=== PATIENT | female | born 1940 | race Caucasian/White ===

== ENCOUNTER → 2023-07-22 10:25 | Outpatient (REF) | payer MEDICARE, SELFPAY ==
[2023-07-22 11:41] LABS: HDL Cholesterol 43 mg/dl; LDL Cholesterol, Calculated 101 mg/dl; Total Cholesterol 183 mg/dl (50-199); Triglyceride 197 mg/dl (10-149); Very Low Density Lipoprotein 39 mg/dl (0-30)
[2023-07-22 12:06] LABS: Vitamin B12 813 pg/ml (239-931)
== END ==
LOC: OLABN 10:25
PROVIDERS: ATTENDING PHYSICIAN Student in an Organized Health Care Education/Training Program
DX: E78.5 Hyperlipidemia, unspecified (principal); I10 Essential (primary) hypertension
CPT/HCPCS: 36415; 80061; 82607

== ENCOUNTER → 2023-08-14 10:31 | Outpatient (REF) | payer MEDICARE, SELFPAY ==
[2023-08-14 11:05] LABS: Hematocrit 30.2 % (37.0-47.0); Hemoglobin 9.5 g/dL (12.0-16.0); Mean Corp Hgb Conc. 31.5 g/dL (33.0-37.0); Mean Corpuscular Hgb 33.9 pg (27.0-31.0); Mean Corpuscular Volume 107.9 fL (81.0-99.0); Mean Platelet Volume 9.4 fL (7.4-10.4); Platelet Count 200 10^3/uL (130-400); White Blood Cell Count 6.7 10^3/uL (4.8-10.8)
== END ==
LOC: OLABN 10:31
PROVIDERS: ATTENDING PHYSICIAN Student in an Organized Health Care Education/Training Program
DX: I10 Essential (primary) hypertension (principal)
CPT/HCPCS: 36415; 85027

== ENCOUNTER → 2023-10-14 11:33 | Outpatient (REF) | payer MEDICARE, SELFPAY | LOC: WOUND 11:33 | PROVIDERS: ATTENDING PHYSICIAN Surgery; FAMILY PHYSICIAN Physician Assistant Medical | DX: I87.311 Chronic venous hypertension (idiopathic) with ulcer of right lower extremity (principal); L97.812 Non-pressure chronic ulcer of other part of right lower leg with fat layer exposed; L98.9 Disorder of the skin and subcutaneous tissue, unspecified; I87.2 Venous insufficiency (chronic) (peripheral); I73.9 Peripheral vascular disease, unspecified; I89.0 Lymphedema, not elsewhere classified; G47.33 Obstructive sleep apnea (adult) (pediatric); E66.01 Morbid (severe) obesity due to excess calories; K21.00 Gastro-esophageal reflux disease with esophagitis, without bleeding; J44.9 Chronic obstructive pulmonary disease, unspecified | CPT/HCPCS: 88305; 11104; 11105; 99204 ==

== ENCOUNTER → 2023-10-30 11:09 | Outpatient (REF) | payer MEDICARE, SELFPAY | LOC: WOUND 11:09 | PROVIDERS: ATTENDING PHYSICIAN Surgery; FAMILY PHYSICIAN Physician Assistant Medical | DX: I87.311 Chronic venous hypertension (idiopathic) with ulcer of right lower extremity (principal); L97.812 Non-pressure chronic ulcer of other part of right lower leg with fat layer exposed; C44.702 Unspecified malignant neoplasm of skin of right lower limb, including hip; L98.9 Disorder of the skin and subcutaneous tissue, unspecified; I87.2 Venous insufficiency (chronic) (peripheral); I73.9 Peripheral vascular disease, unspecified; I89.0 Lymphedema, not elsewhere classified; G47.33 Obstructive sleep apnea (adult) (pediatric); E66.01 Morbid (severe) obesity due to excess calories; J44.9 Chronic obstructive pulmonary disease, unspecified | CPT/HCPCS: 99213 ==

== ENCOUNTER → 2024-01-08 09:54 | Outpatient (REF) | payer MEDICARE, SELFPAY ==
[2024-01-08 11:26] LABS: % Basophils 0.6 % (0-2); % Eosinophils 2.9 % (0-6); % Lymphocytes 14.9 % (20.5-51.1); % Monocytes 13.8 % (1.7-9.3); % Neutrophils 66.8 % (42.2-75.2); Absolute Basophils 0.1 10^3/uL (0-0.2); Absolute Eosinophils 0.2 10^3/uL (0-0.7); Absolute Immature Granulocytes 0.1 10^3/uL (0-0.05); Absolute Lymphocytes 1.3 10^3/uL (1.2-3.4); Absolute Monocytes 1.2 10^3/uL (0.1-0.6); Absolute Neutrophils 5.6 10^3/uL (1.4-6.5); Hematocrit 30.2 % (37.0-47.0); Hemoglobin 9.2 g/dL (12.0-16.0); Mean Corp Hgb Conc. 30.5 g/dL (33.0-37.0); Mean Corpuscular Hgb 31.5 pg (27.0-31.0); Mean Corpuscular Volume 103.4 fL (81.0-99.0); Mean Platelet Volume 9.3 fL (7.4-10.4); Nucleated Red Blood Cells % 0 %; Platelet Count 255 10^3/uL (130-400); Red Blood Cell Count 2.92 10^6/uL (4.20-5.40); White Blood Cell Count 8.4 10^3/uL (4.8-10.8)
[2024-01-08 11:53] LABS: ALT (SGPT) 12 U/L (0-35); AST (SGOT) 21 U/L (14-36); Albumin 3.8 g/dl (3.5-5.0); Alkaline Phosphatase 121 U/L (38-126); Blood Urea Nitrogen 26 mg/dl (7-17); Calcium 9.2 mg/dl (8.4-10.2); Carbon Dioxide 37 mmol/L (22-30); Chloride 96 mmol/L (98-107); Glucose 125 mg/dl (70-99); Sodium 141 mmol/L (135-145); Total Bilirubin 0.7 mg/dl (0.2-1.3); Total Protein 6.9 g/dl (6.3-8.2); eGFR > 60.00
== END ==
LOC: OLABN 09:54
PROVIDERS: ATTENDING PHYSICIAN Student in an Organized Health Care Education/Training Program
DX: J44.9 Chronic obstructive pulmonary disease, unspecified (principal)
CPT/HCPCS: 80053; 85025

== ENCOUNTER 2024-01-13 11:37 | Inpatient (IN) | payer MEDICARE, SELFPAY ==
[2024-01-13] VITALS (15 sets, daily range): BP systolic 75–171; BP diastolic 62–111; PULSE 2–117
[2024-01-13 09:38] LABS: % Basophils 0.6 % (0-2); % Immature Granulocytes 1.9 % (0-0.5); % Lymphocytes 8.6 % (20.5-51.1); % Monocytes 10.1 % (1.7-9.3); % Neutrophils 76.8 % (42.2-75.2); Absolute Basophils 0.1 10^3/uL (0-0.2); Absolute Eosinophils 0.3 10^3/uL (0-0.7); Absolute Immature Granulocytes 0.2 10^3/uL (0-0.05); Absolute Lymphocytes 1.1 10^3/uL (1.2-3.4); Absolute Monocytes 1.3 10^3/uL (0.1-0.6); Absolute Neutrophils 9.8 10^3/uL (1.4-6.5); Hematocrit 31.9 % (37.0-47.0); Mean Corp Hgb Conc. 31.3 g/dL (33.0-37.0); Mean Corpuscular Hgb 31.7 pg (27.0-31.0); Mean Corpuscular Volume 101.3 fL (81.0-99.0); Nucleated Red Blood Cells % 0.2 %; Platelet Count 296 10^3/uL (130-400); Red Blood Cell Count 3.15 10^6/uL (4.20-5.40); Red Cell Dist. Width 16.9 % (11.5-14.5); White Blood Cell Count 12.8 10^3/uL (4.8-10.8)
--- NOTE | 2024-01-13 09:42 | ED.GENMED ---
History of Present Illness
General
Chief Complaint: Breathing Problem
Source: patient and records
Exam Limitations: clinical condition and other (Hard of hearing)
Time Seen by Provider: 01/13/24 09:13
Nursing documentation reviewed up to this point in time: agreed with
History of Present Illness
History of Present Illness:
83-year-old female from [facility] presents with shortness of breath decreased pulse ox chronically maintained on 3 to 4 L, staff found her in respiratory distress with a pulse ox in the high 70s
Put on 6 L, admits to shortness of breath she has some wheezing no fevers no chest pain history of COPD CHF pulmonary hypertension obesity
Past History
Past History
ED Past Medical History: CHF, COPD, HTN, Hypercholesterolemia and Hypothyroidism; Negative NIDDM
ED Past Surgical History: Gynecological (RIA/BSO in June 2008 for uterine CA )
Social History
Tobacco: Former smoker
Alcohol: None
Drug: None
Personal:
Living: long-term
Employment: Other
Review of Systems
Review of Systems
All Other Systems: Not applicable
Constitutional: Denies fever or fatigue
Respiratory: Reports trouble breathing; Denies cough or hemoptysis
Cardiac: Reports no symptoms
ABD/GI: Reports no symptoms
Musculoskeletal: Reports edema
Neurological: Reports no symptoms
Endocrine: Reports no symptoms
Phy Exam
Physical Exam
Physical Exam:
Physical Exam
General: 83 female short statured, mild respiratory distress hard of hearing
Neck: No jaundice
Heart: Rapid and irregular
Lungs: Wheezing
Abdomen: Obese, good
Neuro: alert and oriented. no focal neurological deficits
Skin: no rash
Psychiatric: cooperative
Extremities: Lower extremities in compression wraps
Scores
Heart Failure Risk
Heart Failure Risk Score: Yes
History of Stroke or TIA: No
History of intubation for respiratory distress: No
Heart rate on ED arrival >/= 110: Yes
SaO2 <90% on arrival on room air: Yes
HR >/=110 during 3min walk test (or too ill to perform test): Yes
ECG has acute ischemic changes: Yes
Urea >/=12mmol/L (BUN 33.6mg/dL): No
Serum CO2>/=35mmol/L: No
Troponin I or T elevated to MN Level (0.4mg/dL): No
NT-proBNP >/=5,000ng/L (5,000pg/ml): No
HF Risk Score: 5
Admission Status: VERY HIGH RISK 39.8% Consider admission to hospital
Course
Orders/Labs/Results
Orders:
Orders
01/13/24 09:09
EKG [Electrocardiogram (*1)] Urgent
Reason for Study: Shortness of Breath
EKG- Treatment ONCE
01/13/24 09:19
Cardiac Monitoring- Treatment ONCE
EKG- Treatment ONCE
IV Insert/Care/Rem.- Treatment PRN
Complete Blood Count/With Diff Urgent
CR Chest Portable - 1 View Urgent
Comment:
Reason For Exam: sob
Reason Study Needs to be Portable: Patient Unstable
01/13/24 09:20
Diltiazem HCl [Cardizem] 10 mg IV NOW STA
01/13/24 09:30
Diltiazem 125 mg/125 ml Nss [Cardizem] 125 mg in 125 ml IV PER PROTOCOL
Initial dose in mg/hr, then titrate:: 5
Titrate to keep:: Heart rate 80-100 bpm
Titrate by mg/hr:: 5 mg/hr
Frequency of titrations (minutes):: 15
Maximum dose in mg/hr:: 15
01/13/24 09:50
Comprehensive Metabolic Panel Urgent
NT-proBNP Urgent
Troponin I Urgent
01/13/24 09:55
Arterial Blood Gas Urgent
%Oxygen/Room Air: crb
01/13/24 10:16
Bipap [RESP] Urgent
Patient to use own unit?: No
Inspiratory Pressure (cm H2O): 12
Expiratory Pressure (cm H2O): 5
01/13/24 10:17
Ipratropium/Albuterol Sulfate [Duoneb] 3 ml INH R NOW STA
01/13/24 10:33
Furosemide [Lasix] 60 mg IV NOW STA
01/13/24 11:10
Admit/Transfer Patient As Directed
Co-Sign Provider:
Level of Care: Inpatient admission
Assign to:: IMU- Intermediate Care
Physician / Group: Brittany
Diagnosis: acute on chronic HFpEF
Reason for Hospitalization: acute on chronic HFpEF
Expected length of stay greater than two midnights?: Yes
ELOS- Estimated Length of Stay in days: 6
I certify the patient meets the requirements for IP care: Yes
01/13/24 11:11
PRN Pain Medication Management As Directed
May give lesser potent ordered pain med per pt: Yes
preference::
Protocol:: Medication orders for pain may be administered in a
manner that supports deferring to patient preference
when the pt is:
- Requesting an ordered lesser potent pain medication.
Least to most potent pain medications are defined
as: acetaminophen < NSAID < tramadol < opioids
(morphine, oxycodone, hydromorphone).
- Requesting a lesser dose of the same medication IF
ORDERED.
- Requesting a less intrusive route of administration
if both routes are prescribed by the provider (PO <
IV).
01/13/24 11:19
Code Status As Directed
Resuscitation Status: Do not resuscitate
Reached after discussion with pt or family/Healthcare POA: Yes
DNR Bracelet Application ONCE
01/13/24 18:00
Piperacillin/Tazo 3.375 Gram [Zosyn] 3.375 gram in 50 ml IV Q6H
Abnormal Lab Results
01/13/24 01/13/24 01/13/24
09:19 09:50 09:55
WBC 12.8 H 10^3/uL
(4.8-10.8)
RBC 3.15 L 10^6/uL
(4.20-5.40)
Hgb 10.0 L g/dL
(12.0-16.0)
Hct 31.9 L %
(37.0-47.0)
MCV 101.3 H fL
(81.0-99.0)
MCH 31.7 H pg
(27.0-31.0)
MCHC 31.3 L g/dL
(33.0-37.0)
RDW 16.9 H %
(11.5-14.5)
Abs Immat Gran (auto) 0.2 H 10^3/uL
(0-0.05)
Absolute Neuts (auto) 9.8 H 10^3/uL
(1.4-6.5)
Absolute Lymphs (auto) 1.1 L 10^3/uL
(1.2-3.4)
Absolute Monos (auto) 1.3 H 10^3/uL
(0.1-0.6)
Immature Gran % 1.9 H %
(0-0.5)
Neutrophils % 76.8 H %
(42.2-75.2)
Lymphocytes % 8.6 L %
(20.5-51.1)
Monocytes % 10.1 H %
(1.7-9.3)
pCO2 78 H* mmHg
(32-35)
pO2 59 L* mmHg
(83-108)
HCO3 43.1 H* mmol/L
(21-28)
ABG O2 Sat (Measured) 91.2 L %
(94-98)
Chloride 95 L mmol/L
(98-107)
Carbon Dioxide 38 H mmol/L
(22-30)
BUN 26 H mg/dl
(7-17)
Glucose 178 H mg/dl
(70-99)
Alkaline Phosphatase 140 H U/L
(38-126)
01/13/24 09:19
01/13/24 09:50
Vital Signs
Initial and Last Documented VS:
Initial Vital Signs
Temp Pulse Resp BP Pulse Ox
98.2 F 105 25 161/83 70
01/13/24 09:07 01/13/24 09:07 01/13/24 09:07 01/13/24 09:07 01/13/24 09:07
Last Documented Vital Signs
Temp Pulse Resp BP Pulse Ox
98.2 F 100 24 169/68 96
01/13/24 09:07 01/13/24 11:45 01/13/24 11:45 01/13/24 11:23 01/13/24 11:45
MDM/Problems Addressed
Differential Diagnosis Includes:
CHF pneumonia hypercarbia COPD exacerbation, doubt PE as she is anticoagulated
MDM/Problems Addressed:
Shortness of breath low pulse ox
Chronic conditions affecting care: Arrhythmia and COPD
Acute Exacerbation and/or Progression of Chronic Illness: Arrhythmia and COPD
*Radiology
Radiology exam reviewed: preliminary read by ED provider
*Pulse Oximetry
Patient hypoxic: no
*EKG
Interpreted by ED Provider?: Yes
Interpretation: abnormal
Comparison EKG: no comparison EKG present
Heart Rate: 112
Rate: tachycardiac
Rhythm: a-fib
Ischemia: non-specific ST changes
*Gas Fitter Interpretation
Rate: tachycardiac
Interpretation: abnormal
Heart Rate: 120
Rhythm: a-fib
*Critical Care Note
Total Time (30-74mins, 75-104mins- exclusive of procedures): 30
Update Note
Update Note:
Update ABG noted chest x-ray pending, prior ABGs noted will place on BiPAP, heart rate improved without treatment will hold Cardizem try DuoNeb
Update 12:30 PM patient appears comfortable on BiPAP easily arousable
ED Attending Note
-
Portions of this chart may have been created with voice recognition software.� Occasional wrong word or��sound alike� substitutions may have occurred due to the inherent limitations of voice recognition software.
Discharge Plan
Departure
Patient Disposition: Admit
Date of Disposition: 01/13/24
Time of Disposition: 10:38
Admit to: Telemetry
Presentation/result/management discussed w/ accepting MD/DO: Hospitalist
Patient with high blood pressure during this ER visit?: No
Condition: Fair
Discharge Problem:
Hypertensive heart disease with heart failure, Morbid (severe) obesity with alveolar hypoventilation, ARIANA on CPAP, Chronic diastolic (congestive) heart failure, HLD (hyperlipidemia), Chronic respiratory failure with hypoxia, Acute and chronic
respiratory failure with hypoxia, COPD exacerbation, Obesity hypoventilation syndrome, Hypothyroid, Lymphedema, Sleep apnea, Chronic respiratory failure with hypercapnia, Morbid obesity with BMI of 45.0-49.9, adult
Interventions
Interventions:
*Risk Screen - Suicide Last Done: 01/13/24 09:07
*General Assessment Last Done: 01/13/24 09:07
*Neglect/Abuse Screening Last Done: 01/13/24 09:07
*ED COVID-19 Vaccine History Last Done: 01/13/24 09:30
ED- Cardiac Assessment Last Done: 01/13/24 09:30
ED- Pulmonary Assessment Last Done: 01/13/24 09:30
[2024-01-13 10:04] LABS: B.E. 14.8 mmol/L; O2 Saturation % 91.2 % (94-98); pH 7.35 (7.35-7.45)
[2024-01-13 10:09] LABS: HCO3 43.1 mmol/L (21-28); PCO2 78 mmHg (32-35); PO2 59 mmHg (83-108)
[2024-01-13 10:13] LABS: ALT (SGPT) 13 U/L (0-35); AST (SGOT) 21 U/L (14-36); Alkaline Phosphatase 140 U/L (38-126); Blood Urea Nitrogen 26 mg/dl (7-17); Calcium 9.4 mg/dl (8.4-10.2); Carbon Dioxide 38 mmol/L (22-30); Chloride 95 mmol/L (98-107); Estimated Creatinine Clearance 58 ml/min; Glucose 178 mg/dl (70-99); Potassium 4.5 mmol/L (3.5-5.1); Sodium 141 mmol/L (135-145); Total Bilirubin 0.8 mg/dl (0.2-1.3); Total Protein 7.1 g/dl (6.3-8.2); eGFR > 60.00
[2024-01-13 10:25] LABS: NT-proBNP 1030 pg/ml; Troponin I < 0.012 ng/ml
--- NOTE | 2024-01-13 10:37 | HPS.HSE ---
Family Physician
-
Family Physician: Oleksandr Case DO
Chief Complaint
-
SOB
History of Present Illness
83 y/o F with PMHx:
HFpEF
PSVT
Endometrial cancer
COPD
Essential hypertension
Hyperlipidemia
Hypothyroidism
ARIANA
Interstitial lung disease
Morbid obesity due to excess calories
Chronic macrocytic anemia
who p/w CC SOB. History from the patient is limited due to her being on BiPAP, acuity. History is obtained from the at bedside as well as discussion with Dr. Stearns. The patient has been 'huffing and puffing more' over the last 2 to 3
days. The patient noticed that this was worsening last night when he visited her [facility]. He reports she has had some cough productive of yellow sputum but that she always has cough. No other new complaints. The patient reports that her
shortness of breath is improved on BiPAP. Currently denies chest pain.
Medical History
Past Medical History
Past Medical History: Reports Other (as per HPI)
Past Surgical History: Reports Other (N/A)
Social History
Tobacco: Former Smoker
Alcohol: None
Drug: None
Family History
Family History: Not pertinent
Allergies / Home Medications
Allergies reflects when Allergies were last updated in [employer]
Home Medications with original date entered in [employer]
Allergy/Medication List:
Allergies
Allergy/AdvReac Type Severity Reaction Status Date / Time
AKIRA Inhibitors Allergy Unknown Verified 01/13/24 09:06
nickel [Nickel] Allergy Rash Verified 01/13/24 09:06
Home Medications
acetaminophen 325 mg tablet 650 mg PO Q4HPRN PRN mild pain 12/05/20
fluticasone propionate 50 mcg/actuation nasal spray,suspension 1 spray intranasal BID Allergies 12/05/20
mirabegron 25 mg tablet,extended release 24 hr (Myrbetriq) 50 mg PO DAILY Urinary issue 12/05/20
clonidine HCl 0.1 mg tablet 0.1 mg PO BID Blood pressure 12/14/20
levothyroxine 112 mcg tablet 112 mcg PO DAILY AT 0700 Thyroid 02/15/22
candesartan 4 mg tablet 4 mg PO DAILY Blood pressure 30 days #30 tabs 02/20/22
atorvastatin 40 mg tablet (Lipitor) 40 mg PO QPM High cholesterol 04/12/22
bisacodyl 10 mg rectal suppository (Dulcolax (bisacodyl)) 10 mg OH [id number] PRN IF NO BM AND MOM IS INEFFECTIVE 04/12/22
ferrous gluconate 324 mg (38 mg iron) tablet 324 mg PO MOWEFR IRON DEFICIENCY ANEMIA 04/12/22
eltrombopag olamine 75 mg tablet (Promacta) 75 mg PO Q48H THROMBOCYTOPENIA 04/24/22
furosemide 40 mg tablet 60 mg PO BID@0800,1600 Heart Failure 04/24/22
ipratropium 0.5 mg-albuterol 3 mg (2.5 mg base)/3 mL nebulization soln 3 ml inhalation R Q6HPRN PRN sob 04/24/22
ipratropium 0.5 mg-albuterol 3 mg (2.5 mg base)/3 mL nebulization soln 3 ml inhalation R QID SHORTNESS OF BREATH 04/24/22
acetaminophen 500 mg tablet 1,000 mg PO BID Pain 09/01/22
azithromycin 250 mg tablet 250 mg PO MOWEFR Infection 09/01/22
benzonatate 100 mg capsule 200 mg (2 x 100 mg) PO TIDPRN PRN cough #7 caps 09/06/22
ammonium lactate 12 % topical cream 1 applic topical BID xerosis cutis 05/20/23
docusate sodium 100 mg capsule 200 mg PO DAILY Constipation 05/20/23
hydralazine 10 mg tablet 5 mg PO TID Blood Pressure 05/20/23
hydrocortisone 2.5 % topical cream with perineal applicator (Procto-Med HC) 1 applic OH QIDPRN PRN hemorrhoids 05/20/23
polyethylene glycol 3350 17 gram oral powder packet 17 g PO Q72H Constipation 05/20/23
apixaban 5 mg tablet (Eliquis) 5 mg PO BID 30 days #60 tabs 05/26/23
acetaminophen 325 mg tablet (Tylenol) 650 mg PO DAILYPRN PRN fever 01/13/24
ascorbic acid (vitamin C) 500 mg tablet (Vitamin C) 500 mg PO MOWEFR 01/13/24
benzocaine 6 mg-menthol 10 mg lozenges 1 mila mucous membrane Q4HPRN PRN sore throat 01/13/24
diltiazem HCl 120 mg capsule,extended release 24 hr 120 mg PO DAILY Blood pressure 01/13/24
fluticasone furoate 100 mcg/actuation blister powder for inhalation (Arnuity Ellipta) 1 inh inhalation R DAILY 01/13/24
pantoprazole 20 mg tablet,delayed release (Protonix) 20 mg PO DAILY 01/13/24
Review of Systems
-
Unable to obtain full review of systems at this time due to: Acuity
History Source: Family
Physical Exam
Vital Signs
Vital Signs
Temp Pulse Resp BP Pulse Ox
98.2 F 104 29 161/83 99
01/13/24 09:07 01/13/24 09:30 01/13/24 09:30 01/13/24 09:11 01/13/24 09:32
Physical Exam
General: Other (.)
Laboratory Results
-
01/13/24 09:19
01/13/24 09:50
Laboratory Results
pH 7.35 (7.35-7.45) 01/13/24 09:55
pCO2 78 mmHg (32-35) H* 01/13/24 09:55
pO2 59 mmHg (83-108) L* 01/13/24 09:55
HCO3 43.1 mmol/L (21-28) H* 01/13/24 09:55
Total Bilirubin 0.8 mg/dl (0.2-1.3) 01/13/24 09:50
AST 21 U/L (14-36) 01/13/24 09:50
ALT 13 U/L (0-35) 01/13/24 09:50
Alkaline Phosphatase 140 U/L (38-126) H 01/13/24 09:50
Troponin I < 0.012 ng/ml 01/13/24 09:50
Impression/Plan
-
Gen: NAD, Awake and alert
Eyes: EOMI, PERRLA, no scleral icterus.
Neck: supple.
CV: irreg/irreg, +S1/S2, no m/r/g.
Resp: CTAB anteriorly, no rales, wheezes, or rhonchi.
Abd: +BS, soft, NT, ND
Skin: Compression stockings on both lower extremities. 3+ bilateral lower extremity dependent edema.
Neuro: CN 2-12 intact, non-focal.
Psych: Normal mood and affect.
Echo 05/21/23: Study was discontinued as patient refused to let technologist continue.
Normal left ventricular chamber size with concentric remodeling and
hyperdynamic left ventricular systolic function. No obvious wall motion
abnormalities. Left ventricular ejection fraction is 70-75% by visual
estimate. Diastolic function indeterminate.
Normal right ventricular size and function.
Mild left atrial dilation.
Moderate right atrial dilation.
Dense posterior mitral annular calcification.
Trileaflet, sclerotic aortic valve with calcification of the base of the right
coronary leaflet but adequate aortic leaflet excursion without stenosis.
Trivial pericardial effusion.
The IVC is not visualized.
RV/RA pressure gradient is 41 mmHg, implying at least mild pulmonary
hypertension.
CXR (official read pending, read by me): B/L pulm edema
ECG (read by me): Afib with RVR @ 122, nl axis, no acute ST/TW changes
Acute hypoxemic and hypercapnic respiratory failure due to acute on chronic HFpEF:
-Chest x-ray with pulmonary edema, proBNP 1030 in the setting of pulmonary restriction due to morbid obesity due to excess calories and underlying COPD (which does not appear to be in acute exacerbation)
-Lasix 60mg IV given in the ER, cont with 80mg IV BID
-cont BIPAP 15/5, currently with 10L O2. Wean for pulse ox 91%
-c/s pulm/cards
Other problems:
Atrial fibrillation with RVR: At the time of my exam the patient's rate had improved to the 70s. Cont Eliquis
PSVT
h/o Endometrial cancer
COPD: cont Duonebs/Azithro/Arnuity Ellipta
Essential hypertension: cont candesartan/clonidine/Cardizem
Hyperlipidemia: cont statin
Hypothyroidism: cont Levoxyl
ARIANA
Interstitial lung disease
Morbid obesity due to excess calories
Chronic macrocytic anemia
DNR/I - confirmed with the pt's in the ER
Eliquis
Due to the patient's advanced age and multiple, severe, active comorbidities, this patient would benefit from comfort care/hospice.
[2024-01-13] MEDS: LASIX 60 MG IV (10:45)
[2024-01-13] MEDS: DUONEB 3 ML INH ×3 (10:45→20:06)
--- NOTE | 2024-01-13 11:48 | PHA.VAN.IN ---
Assessment
- Assessment
Renal Function: Appears similar to baseline
Concomitant Antimicrobials: piperacillin/tazobactam
AUC Dosing Plan
- Dosing Variables
Dosing Weight (kg): 127
Dosing CrCl (ml/min): 58
Vd coefficient (L/kg): 0.5
- Empiric Dosing
Initial / Loading Dose: Vanc 2000mg - administration pending
Maintenance Regimen: Vanc 1500mg Q24H starting 01/13 600
Estimated AUC (mcg*h/mL): 467
Estimated Peak (mcg*h/mL): 33
Estimated Trough (mcg/ml): 10.1
Estimated Half Life (H): 13.2
- Monitoring
No levels ordered at this time: consider levels in next few days
MRSA Screen: Ordered per protocol
Pharmacokinetics Vancomycin I
- -
Patient Age: 83
Patient Sex: Female
Vancomycin Day #: 1
Indication: Pulmonary/Respiratory
Requesting Provider: Dr. Soto
Pertinent Antimicrobial Allergies:
no pertinent antibiotic allergies
Height / Weight:
Height 5 ft 2 in
Actual Weight 127.1 kg
Pertinent Past Medical History: BMI ~51
- Vital Signs / Lab Results
Temp Pulse Resp BP Pulse Ox
98.2 F 107 24 171/83 94
01/13/24 09:07 01/13/24 11:15 01/13/24 11:15 01/13/24 10:45 01/13/24 11:15
Lab Results - Hematology
01/13/24
09:19
WBC 12.8 H
Lab Results - Chemistry
01/13/24 01/13/24
09:19 09:50
BUN Cancelled 26 H
Creatinine Cancelled 0.9
Estimated Creat Clear Cancelled 58
Albumin Cancelled 4.0
[2024-01-13] MEDS: ZOSYN 100 IV (11:59)
[2024-01-13] MEDS: FLUSH (NSS) 1 FLUSH IV (12:00)
[2024-01-13] MEDS: VANCOCIN 540 MG IV (13:56)
--- NOTE | 2024-01-13 15:16 | PTCARENOTE ---
Patient arrived by stretcher from ED. On bipap, tachypneic. AAOx3, drowsy but easily arousable. Very [place]. VSS. Afib on monitor. Respiratory at bedside. Chronic rodriguez draining clear/yellow urine. Call xie in hand, updated patient to surroundings.
Unable to complete admission history at this time due to bipap and tachypnea. Closely monitoring.
[2024-01-13] MEDS: LASIX 80 MG IV (17:08)
[2024-01-13] MEDS: APRESOLINE PO (17:14)
[2024-01-13] MEDS: LIPITOR PO (18:03)
[2024-01-13] MEDS: ZOSYN 50 IV ×2 (18:20→23:57)
[2024-01-13] MEDS: DESENEX/MITRAZOL/ZEASORB 1 APPLIC TOPICAL (18:21)
[2024-01-13] MEDS: FLOVENT 44 MCG INHALER 2 PUFF INH (20:06)
[2024-01-13] MEDS: TYLENOL 1000 MG PO (20:09)
[2024-01-13] MEDS: CATAPRES 0.1 MG PO (20:09)
[2024-01-13] MEDS: ELIQUIS 5 MG PO (20:09)
[2024-01-13] MEDS: LAC HYDRIN, AM LACTIN LOTION 1 APPLIC TOPICAL (20:13)
--- NOTE | 2024-01-13 20:25 | PTCARENOTE ---
Received pt at shift change, at the bedside. AAOx3. Afib on the monitor at a controlled rate. Pt on BiPAP, SpO2 92%. Requested RT to check pt's BiPAP mask for air leak, responded beside, RT assisted RN to remove pt's BiPAP for med
administration. Upon replacing pt's BiPAP mask, SpO2 97%. Pt has a chronic rodriguez in place draining yellow urine. Remainder of assessment as documented. Pt requested BiPAP mask be removed, RN and RT provided education to pt on the importance of BiPAP
in her current condition. Pt's at the bedside reports pt is suppose to wear CPAP HS at [facility], but pt is rarely, if ever, complaint with her machine. Pt and updated on POC for the evening. Pt oriented to call anne-marie, resting
comfortably at this time.
[2024-01-13] MEDS: APRESOLINE 5 MG PO (22:21)
[2024-01-14] VITALS (20 sets, daily range): BP systolic 141–194; BP diastolic 74–151; PULSE 2–98; BMI 48.8
--- NOTE | 2024-01-14 05:44 | PTCARENOTE ---
Pt's BiPAP alarming low pressure volumes, covering RT notified, SpO2 92%. While awaiting RT en route, pt became agitated, ripping her BiPAP mask off screaming at RN and staff 'Leave me alone! I want to ! If I in my sleep, I'll happy! Just
leave me the hell alone!' Pt refusing all supplemental O2 (BiPAP mask, NC and NRB mask offered). Pt's SpO2 71% on RA. Covering CUT OFF MACHINE OPERATOR notified, responded bedside. RT at the bedside assisted pt back into BiPAP mask comfortably, SpO2 rising to 99% on
BiPAP. Pt refusing AM labs and all medications at this time. Pt states 'I just want to sleep, leave me alone'. Pt remains on BiPAP at this time, resting comfortably in bed.
[2024-01-14] MEDS: VANCOCIN 300 ML IV (06:36)
[2024-01-14] MEDS: VANCOCIN 300 MG IV (06:36)
[2024-01-14] MEDS: DUONEB 3 ML INH ×4 (07:10→20:05)
[2024-01-14] MEDS: FLOVENT 44 MCG INHALER 2 PUFF INH ×2 (07:10→20:05)
--- NOTE | 2024-01-14 08:06 | W.PN.HOSP.TC ---
Today's Communication/Plan
-
see bold
Assessment / Plan
Assessment / Plan
Gen: NAD, Awake and alert
Eyes: EOMI, PERRLA, no scleral icterus.
Neck: supple.
CV: tachy, irreg/irreg, +S1/S2, no m/r/g.
Resp: CTAB anteriorly, no rales, wheezes, or rhonchi.
Abd: +BS, soft, NT, ND
Skin: Compression stockings on both lower extremities. 2-3+ bilateral lower extremity dependent edema.
Neuro: remains CN 2-12 intact, non-focal.
Psych: Normal mood and affect.
Echo 05/21/23: Study was discontinued as patient refused to let technologist continue.
Normal left ventricular chamber size with concentric remodeling and
hyperdynamic left ventricular systolic function. No obvious wall motion
abnormalities. Left ventricular ejection fraction is 70-75% by visual
estimate. Diastolic function indeterminate.
Normal right ventricular size and function.
Mild left atrial dilation.
Moderate right atrial dilation.
Dense posterior mitral annular calcification.
Trileaflet, sclerotic aortic valve with calcification of the base of the right
coronary leaflet but adequate aortic leaflet excursion without stenosis.
Trivial pericardial effusion.
The IVC is not visualized.
RV/RA pressure gradient is 41 mmHg, implying at least mild pulmonary
hypertension.
CXR: There is patchy airspace disease bilaterally and diffusely consistent with diffuse pneumonia.
ECG on admission (read by me): Afib with RVR @ 122, nl axis, no acute ST/TW changes
Acute hypoxemic and hypercapnic respiratory failure due to acute on chronic HFpEF:
-Chest x-ray with pulmonary edema, proBNP 1030 in the setting of pulmonary restriction due to morbid obesity due to excess calories and underlying COPD (which does not appear to be in acute exacerbation)
-cont Lasix 80mg IV BID
-was on BIPAP 15/5 with 10L O2, now weaned to 4.5L NC O2. Wean for pulse ox 91%
-c/s pulm/cards
-cont empiric Zosyn/Vanco (PNA clinically less likely), check procal
Other problems:
Atrial fibrillation with RVR: Cont Eliquis
PSVT
h/o Endometrial cancer
COPD: cont Duonebs/Azithro/Arnuity Ellipta
Essential hypertension: cont candesartan/clonidine/Cardizem
Hyperlipidemia: cont statin
Hypothyroidism: cont Levoxyl
ARIANA
Interstitial lung disease
Morbid obesity due to excess calories
Chronic macrocytic anemia
DNR/I - confirmed with the pt's in the ER
Eliquis
Due to the patient's advanced age and multiple, severe, active comorbidities, this patient would benefit from comfort care/hospice.
Total time spent on today's encounter was 50 minutes which included time spent in counseling the patient/family regarding diagnosis and treatment plan as listed above, goals of care, and symptom management. Case was discussed with nursing staff,
specialists, and care coordinators/case management. All labs and imaging personally reviewed by me. Remainder the time spent in detailed review of previous records, lab data, imaging, and other medical provider documentation.
Anticipated Discharge: > 48 hours
Subjective/Interval History
-
Date of Service: January 14, 2024
Does not offer new complaints.
Objective Data
-
Labs:
Laboratory Results
01/14/24
06:00
WBC Pending
Hgb Pending
Hct Pending
Plt Count Pending
Sodium Pending
Potassium Pending
Chloride Pending
Carbon Dioxide Pending
BUN Pending
Creatinine Pending
Glucose Pending
Calcium Pending
Vital Signs:
Vital Signs
Temp Pulse Resp BP Pulse Ox
98.1 F 88 18 143/87 95
01/14/24 07:57 01/14/24 07:10 01/14/24 07:10 01/14/24 04:00 01/14/24 07:10
I&O
01/13/24 01/14/24 01/15/24
06:59 06:59 06:59
Intake Total 100 / 100
Output Total 3225 / 3225
Balance -3125 / -3125
[2024-01-14] MEDS: ZOSYN 50 IV ×4 (08:50→23:05)
[2024-01-14] MEDS: MIRALAX 17 GRAMS PO (08:50)
[2024-01-14] MEDS: FLUSH (NSS) 1 FLUSH IV ×3 (08:50→17:19)
[2024-01-14] MEDS: MYRBETRIQ EXTENDED RELEASE 50 MG PO (08:54)
[2024-01-14] MEDS: ELIQUIS 5 MG PO ×2 (08:55→19:51)
[2024-01-14] MEDS: CARDIZEM CD 120 MG PO (08:55)
[2024-01-14] MEDS: APRESOLINE 5 MG PO ×3 (08:57→22:05)
[2024-01-14] MEDS: FEOSOL 325 MG PO (08:58)
[2024-01-14] MEDS: COLACE 200 MG PO (08:59)
[2024-01-14] MEDS: ATACAND 4 MG PO (09:00)
[2024-01-14] MEDS: SYNTHROID 112 MCG PO (09:00)
[2024-01-14] MEDS: NON-FORMULARY ITEM 75 MG PO (09:01)
[2024-01-14] MEDS: VITAMIN C 500 MG PO (09:02)
[2024-01-14] MEDS: LAC HYDRIN, AM LACTIN LOTION 1 APPLIC TOPICAL ×2 (09:03→19:51)
[2024-01-14] MEDS: CATAPRES 0.1 MG PO ×2 (09:03→19:50)
[2024-01-14] MEDS: LASIX 80 MG IV ×2 (09:04→17:18)
[2024-01-14] MEDS: PROTONIX 20 MG PO (09:05)
--- NOTE | 2024-01-14 09:24 | CON.CAR ---
Consultation
Consultation Request
Date/Time Consultation Requested: 01/14/2024
Date/Time Consultation Performed: 01/14/2024
Requesting Provider: Dr. Soto
Performing Provider: Dr. Fung (Dr. Herrera primary food service technician)
Reason for Consultation: heart failure
Medical History
-
Chief Complaint: Shortness of breath
History of Present Illness:
Nikkie Biggs is an 83 year old female, (known to Dr. Lawrence transitioning to Dr Herrera) with HFpEF, HTN, HLD, PSVT, ILD, COPD, ARIANA, former smoker, and supplemental oxygen dependence presented to the ER from [facility] when was felt to be
'huffing and puffing ' more per chart review. She was started on Bipap int he ED. She was treated with IV diuresis and empiric antibiotics. Currently she is awake with BiPAP off. She is not sure why she is here. She has no complaints.
Past Medical History
Past Medical History: Arrhythmias (PSVT), Cancer (endometrial), CHF, COPD, HTN, Hypercholesterolemia, Hypothyroidism and Other (ILD, ARIANA)
Past Surgical History: Appendectomy, Gynecological and Orthopedic
Social History
Tobacco: Former Smoker
Alcohol: None
Drug: None
Personal:
Living: Senior Living ([facility])
Employment: Retired
Family History
Family History: Reviewed & Not Pertinent
Allergies / Home Medications
Allergy/AdvReac Type Severity Reaction Status Date / Time
AKIRA Inhibitors Allergy Unknown Verified 01/13/24 09:06
nickel [Nickel] Allergy Rash Verified 01/13/24 09:06
�Medication �Instructions �Recorded �Confirmed �Type
acetaminophen 325 mg tablet 650 mg PO Q4HPRN PRN mild pain 12/05/20 01/13/24 History
fluticasone propionate 50 1 spray intranasal BID Allergies 12/05/20 01/13/24 History
mcg/actuation nasal
spray,suspension
mirabegron 25 mg tablet,extended 50 mg PO DAILY Urinary issue 12/05/20 01/13/24 History
release 24 hr (Myrbetriq)
clonidine HCl 0.1 mg tablet 0.1 mg PO BID Blood pressure 12/14/20 01/13/24 Rx
levothyroxine 112 mcg tablet 112 mcg PO DAILY AT 0700 Thyroid 02/15/22 01/13/24 History
candesartan 4 mg tablet 4 mg PO DAILY Blood pressure 30 02/20/22 01/13/24 Rx
days #30 tabs
atorvastatin 40 mg tablet (Lipitor) 40 mg PO QPM High cholesterol 04/12/22 01/13/24 History
bisacodyl 10 mg rectal suppository 10 mg SD [id number] PRN IF NO BM AND 04/12/22 01/13/24 History
(Dulcolax (bisacodyl)) MOM IS INEFFECTIVE
ferrous gluconate 324 mg (38 mg 324 mg PO MOWEFR IRON DEFICIENCY 04/12/22 01/13/24 History
iron) tablet ANEMIA
eltrombopag olamine 75 mg tablet 75 mg PO Q48H THROMBOCYTOPENIA 04/24/22 01/13/24 History
(Promacta)
furosemide 40 mg tablet 60 mg PO BID@0800,1600 Heart 04/24/22 01/13/24 History
Failure
ipratropium 0.5 mg-albuterol 3 mg 3 ml inhalation R Q6HPRN PRN sob 04/24/22 01/13/24 History
(2.5 mg base)/3 mL nebulization
soln
ipratropium 0.5 mg-albuterol 3 mg 3 ml inhalation R QID SHORTNESS OF 04/24/22 01/13/24 History
(2.5 mg base)/3 mL nebulization BREATH
soln
acetaminophen 500 mg tablet 1,000 mg PO BID Pain 09/01/22 01/13/24 History
azithromycin 250 mg tablet 250 mg PO MOWEFR Infection 09/01/22 01/13/24 History
benzonatate 100 mg capsule 200 mg (2 x 100 mg) PO TIDPRN PRN 09/06/22 01/13/24 Rx
cough #7 caps
ammonium lactate 12 % topical cream 1 applic topical BID xerosis cutis 05/20/23 01/13/24 History
docusate sodium 100 mg capsule 200 mg PO DAILY Constipation 05/20/23 01/13/24 History
hydralazine 10 mg tablet 5 mg PO TID Blood Pressure 05/20/23 01/13/24 History
hydrocortisone 2.5 % topical cream 1 applic SD QIDPRN PRN hemorrhoids 05/20/23 01/13/24 History
with perineal applicator
(Procto-Med HC)
polyethylene glycol 3350 17 gram 17 g PO Q72H Constipation 05/20/23 01/13/24 History
oral powder packet
apixaban 5 mg tablet (Eliquis) 5 mg PO BID 30 days #60 tabs 05/26/23 01/13/24 Rx
acetaminophen 325 mg tablet 650 mg PO DAILYPRN PRN fever 01/13/24 01/13/24 History
(Tylenol)
ascorbic acid (vitamin C) 500 mg 500 mg PO MOWEFR Supplement 01/13/24 01/13/24 History
tablet (Vitamin C)
benzocaine 6 mg-menthol 10 mg 1 mila mucous membrane Q4HPRN PRN 01/13/24 01/13/24 History
lozenges sore throat
diltiazem HCl 120 mg 120 mg PO DAILY Blood pressure 01/13/24 01/13/24 History
capsule,extended release 24 hr
fluticasone furoate 100 1 inh inhalation R DAILY 01/13/24 01/13/24 History
mcg/actuation blister powder for Lung/Breathing Issues
inhalation (Arnuity Ellipta)
pantoprazole 20 mg tablet,delayed 20 mg PO DAILY GERD 01/13/24 01/13/24 History
release (Protonix)
Physical Exam
Vital Signs
Temp Pulse Resp BP Pulse Ox
98.1 F 101 23 194/93 92
01/14/24 07:57 01/14/24 08:15 01/14/24 08:15 01/14/24 08:00 01/14/24 08:15
Lab Results
Troponin I < 0.012 ng/ml 01/13/24 09:50
Noz-A-Jdiiwkcfbms Pept 1030 pg/ml 01/13/24 09:50
Impression / Plan
-
Acute hypoxic and hypercapneic respiratory failure, suspect multifactorial
-On BiPAP
- PNA and HFpEF and being treated
-COPD and ILD chronically
- monitor reanl function.
HFpEF, acute on chronic
-Wt significantly up from last d/c at 111.15g in 05/2023.
-good response to lasix at -3L, states not having a great response at NH, additionally not compliant with CPAP
-continue 80 IV lasix with intensive monitoring of labs and bp
-she has been resistent to lab work in the past so not a great candidate for sglt2i and MRA, can reconsider as an outpatient.
-Trend daily weight, I/Os, and BMP with diuresis
Permanent Atrial fibrillation with RVR => rate improved with therapy.
-Rates controlled with increase in Diltiazem
-Avoid beta mike given underlying lung disease
-Oral Anticoagulation: Eliquis 5mg BID
-[id number]: score at least 5 (Heart failure, HTN, age 75 or more, female gender)
PNA:
-leukocytosis
-procal pending
-empiric abx
HTN, urgency:
-just receiving po medications, will monitor response and titrate prn
ILD/ARIANA with oxygen dependence, baseline 3LPM
Thrombocytopenia, on Promacta
ARIANA with chronic hypercapnia
Chronic lymphedema
Obesity, BMI 48
GOC: she is ready to 'go to sleep for good' and 'go home' but her shakes that off and says no and then she laughs. I discussed the plan with Dr. Soto and relayed this information. Additionally Earlene her nurse was at the bedside she
will give her medications and alert me to her blood pressure in 2 hours.
Subjective:
she is feeling ok, she isn't sure why she is here
TTE 05/21/23:
Study was discontinued as patient refused to let technologist continue.
�Normal left ventricular chamber size with concentric remodeling and
�hyperdynamic left ventricular systolic function. No obvious wall motion
�abnormalities.� Left ventricular ejection fraction is 70-75% by visual
�estimate.� Diastolic function indeterminate.
�Normal right ventricular size and function.
�Mild left atrial dilation.
�Moderate right atrial dilation.
�Dense posterior mitral annular calcification.
�Trileaflet, sclerotic aortic valve with calcification of the base of the right
�coronary leaflet but adequate aortic leaflet excursion without stenosis.
�Trivial pericardial effusion.
�The IVC is not visualized.
�RV/RA pressure gradient is 41 mmHg, implying at least mild pulmonary
�hypertension.
Data Reviewed
-
EKG: Tracing Personally Visualized and interpreted (EKG tracing shows atrial fibrillation with rapid ventricular response, poor R wave progression and low voltage, compared to the prior no significant change was seen.)
Radiology: Image Personally Visualized and interpreted (Poor inspiratory effort, diffuse pulmonary edema. Cardiomegaly.) and Report Reviewed by me (Patchy infiltrates consistent with pneumonia)
--- NOTE | 2024-01-14 09:56 | CM ---
Addendum entered by Maggy Calvo RN 01/14/24 11:48:
Seen by wound care nurse.
Original Note:
Patient from [facility] with Dx Acute hypoxemic and hypercapnic respiratory failure, HF, Permanent Atrial fibrillation with RVR. O2 4L. BiPAP. Receiving IV Lasix, IV Abx.
Spoke with [facility], [facility]; the patient resides there in LTC and is on a private pay bed hold. The nurse on Unit [address] can provide clinical details. The for report [phone], fax [phone]. [facility] would like patient to have PT/OT
and return to them skilled for rehab if possible.
Spoke with Felipe, nurse [facility]; the patient is A/O and [place] at baseline.
She is assisted with ADLs. requires assist of 2 for sit to stand transfers.
The patient is essentially w/c bound and participates in a restorative program to improve her standing.
She has her own w/c. Patient has O2 and CPAP in place.
Patient may benefit from Pt?OT for transfer training ---> message to Dr Soto.
Plan contact patient/ prior to d/c.
Plan return to [facility] when medically ready.
[2024-01-14] MEDS: TYLENOL 1000 MG PO ×2 (10:11→19:51)
[2024-01-14] MEDS: ZITHROMAX 250 MG PO (10:12)
[2024-01-14] MEDS: DUONEB INH (11:27)
--- NOTE | 2024-01-14 11:38 | WOUNDNOTE ---
[facility] RN note: Patient admitted with acute on chronic heart failure. Patient admitted from [facility].
See H&P for complete history.
PMH: endometrial cancer, COPD, HTN, ARIANA (Bipap), lung disease, morbid obesity, anemia, former smoker, a fib (Eliquis).
Wound Location and type/assessment: Patient admitted with: healing pink Moh's deep dermal wound along with venous insufficiency. L groin linear dermal opening wound r/t moisture. Patient wears knee high Tubigrip. +Pedal pulses via portable Doppler.
Appetite: good.
Pressure redistribution devices in place: Centrella Max air bed. Patient assisted with turning. Pillow under calves.
Plan: RLE dressing changed. Patient turned with help from MATA Fontanez. Heels off bed with pillow. Air chair cushion given.
Will confirm orders with hospitalist and updated SARAH Glez.
Care plan to be updated and will follow as needed.
Recommend follow up at wound care center upon discharge.
--- NOTE | 2024-01-14 14:34 | CON.PUL ---
Consultation
Consultation Request
Date/Time Consultation Requested: 01/13
Date/Time Consultation Performed: 01/13
Reason for Consultation: Hypoxia, abnormal chest x-ray
Medical History
-
History of Present Illness:
History obtained from the patient, at bedside, reviewing outpatient records, hospital records. 83-year-old female with complex medical history including atrial fibrillation, chronic heart failure, COPD, sleep apnea noncompliant with CPAP
with obesity hypoventilation syndrome and chronic hypercapnia, chronic lymphedema with ongoing wound issues, retirement resident, who presents with hypoxia respiratory dress from retirement. She was noted to have pulse oximetry in the 70s,
placed on 6 L. Upon arrival to [facility], afebrile, pulse 105, breathing at 25, blood pressure 161/83, 70% saturation. Per ED, chest exam reveals wheezing. Chest x-ray revealed bilateral infiltrates. We are asked to comment on pulmonary
process
According to at bedside, patient is sedentary. She is also noncompliant with her CPAP at the retirement. She has a chronic cough. There is no clear history of aspiration or dysphagia
.
PMH: Hypertension, hyperlipidemia, heart failure, COPD with mild interstitial changes, obstructive sleep apnea on CPAP, suspected obesity hypoventilation syndrome, chronic hypercapnia, chronic lymphedema with wound issues, anemia,
thrombocytopenia/ITP, morbid obesity, hypothyroidism, pulm hypertension, chronic hypoxia on home oxygen. Hysterectomy/RIA/BSO for endometrial cancer 2008, appendectomy 816, abdominal hernia repair 2009, tonsillectomy, left shoulder surgery 2013
Past Medical History
Past Medical History: None (See above)
Past Surgical History: None (See above)
Social History
Tobacco: Former Smoker ([id number], quit )
Alcohol: None
Drug: None
Personal:
Living: [facility]
Employment: Retired
Family History
Family History: Other (Sister with bypass surgery, heart failure. Father with coronary disease at 57. Mother heart disease/dementia/heart failure 85. 1 son healthy)
Allergies / Home Medications
Allergies
Allergy/AdvReac Type Severity Reaction Status Date / Time
AKIRA Inhibitors Allergy Unknown Verified 01/13/24 09:06
nickel [Nickel] Allergy Rash Verified 01/13/24 09:06
Home Medications
�Medication �Instructions �Recorded �Confirmed �Last Taken �Type
acetaminophen 325 mg tablet 650 mg PO Q4HPRN PRN mild pain 12/05/20 01/13/24 Unknown History
fluticasone propionate 50 1 spray intranasal BID Allergies 12/05/20 01/13/24 01/12/24 History
mcg/actuation nasal
spray,suspension
mirabegron 25 mg tablet,extended 50 mg PO DAILY Urinary issue 12/05/20 01/13/24 01/12/24 History
release 24 hr (Myrbetriq)
clonidine HCl 0.1 mg tablet 0.1 mg PO BID Blood pressure 12/14/20 01/13/24 01/12/24 Rx
levothyroxine 112 mcg tablet 112 mcg PO DAILY AT 0700 Thyroid 02/15/22 01/13/24 01/13/24 History
candesartan 4 mg tablet 4 mg PO DAILY Blood pressure 30 02/20/22 01/13/24 01/12/24 Rx
days #30 tabs
atorvastatin 40 mg tablet (Lipitor) 40 mg PO QPM High cholesterol 04/12/22 01/13/24 01/12/24 History
bisacodyl 10 mg rectal suppository 10 mg ND [id number] PRN IF NO BM AND 04/12/22 01/13/24 Unknown History
(Dulcolax (bisacodyl)) MOM IS INEFFECTIVE
ferrous gluconate 324 mg (38 mg 324 mg PO MOWEFR IRON DEFICIENCY 04/12/22 01/13/24 01/12/24 History
iron) tablet ANEMIA
eltrombopag olamine 75 mg tablet 75 mg PO Q48H THROMBOCYTOPENIA 04/24/22 01/13/24 01/12/24 History
(Promacta)
furosemide 40 mg tablet 60 mg PO BID@0800,1600 Heart 1101/13/24 01/12/24 History
Failure
ipratropium 0.5 mg-albuterol 3 mg 3 ml inhalation R Q6HPRN PRN sob 04/24/22 01/13/24 05/20/23 History
(2.5 mg base)/3 mL nebulization
soln
ipratropium 0.5 mg-albuterol 3 mg 3 ml inhalation R QID SHORTNESS OF 04/24/22 01/13/24 01/13/24 History
(2.5 mg base)/3 mL nebulization BREATH
soln
acetaminophen 500 mg tablet 1,000 mg PO BID Pain 09/01/22 01/13/24 01/12/24 History
azithromycin 250 mg tablet 250 mg PO MOWEFR Infection 09/01/22 01/13/24 01/12/24 History
benzonatate 100 mg capsule 200 mg (2 x 100 mg) PO TIDPRN PRN 09/06/22 01/13/24 Unknown Rx
cough #7 caps
ammonium lactate 12 % topical cream 1 applic topical BID xerosis cutis 05/20/23 01/13/24 Unknown History
docusate sodium 100 mg capsule 200 mg PO DAILY Constipation 05/20/23 01/13/24 01/12/24 History
hydralazine 10 mg tablet 5 mg PO TID Blood Pressure 05/20/23 01/13/24 01/12/24 History
hydrocortisone 2.5 % topical cream 1 applic ND QIDPRN PRN hemorrhoids 05/20/23 01/13/24 Unknown History
with perineal applicator
(Procto-Med HC)
polyethylene glycol 3350 17 gram 17 g PO Q72H Constipation 05/20/23 01/13/24 01/11/24 History
oral powder packet
apixaban 5 mg tablet (Eliquis) 5 mg PO BID 30 days #60 tabs 05/26/23 01/13/24 01/12/24 Rx
acetaminophen 325 mg tablet 650 mg PO DAILYPRN PRN fever 01/13/24 01/13/24 Unknown History
(Tylenol)
ascorbic acid (vitamin C) 500 mg 500 mg PO MOWEFR Supplement 01/13/24 01/13/24 01/12/24 History
tablet (Vitamin C)
benzocaine 6 mg-menthol 10 mg 1 mila mucous membrane Q4HPRN PRN 01/13/24 01/13/24 Unknown History
lozenges sore throat
diltiazem HCl 120 mg 120 mg PO DAILY Blood pressure 01/13/24 01/13/24 01/12/24 History
capsule,extended release 24 hr
fluticasone furoate 100 1 inh inhalation R DAILY 01/13/24 01/13/24 01/12/24 History
mcg/actuation blister powder for Lung/Breathing Issues
inhalation (Arnuity Ellipta)
pantoprazole 20 mg tablet,delayed 20 mg PO DAILY GERD 01/13/24 01/13/24 01/12/24 History
release (Protonix)
Review of Systems
-
History Source: Family
All other systems: Negative unless noted
Vitals / Labs / Diagnostic Testing
Vital Signs
Temp Pulse Resp BP Pulse Ox
97.7 F 105 18 151/100 97
01/14/24 11:29 01/14/24 13:15 01/14/24 13:15 01/14/24 12:00 01/14/24 13:15
Microbiology
01/13/24 18:29 Nose Nasal Screen MRSA (PCR) - Final
MRSA not detected - performed by PCR methodology.
Diagnostic Testing:
Physical Exam
-
HEENT: Normocephalic, Anicteric and Other (Large neck)
Cardiovascular: S1/S2, Regular Rhythm and Murmur (n)
Respiratory: Wheeze (n), Rales (n), Rhonchi (few) and Non-Labored Respirations
GI: Soft, Non Distended (Morbidly obese) and Non Tender
Neurology: Awake, Alert and No Motor Deficits (Generally weak, moves all extremities)
Skin: Other (Chronic lymphedema with bandage in place right lower extremity)
General: Comfortable
Assessment
-
83-year-old female with complex medical history, history of heart failure, COPD, sleep apnea with obesity hypoventilation on chronic oxygen therapy, CPAP therapy retirement resident presents with hypoxia, respiratory distress found to have
bilateral infiltrates per chest x-ray. We are asked to comment on pulmonary process
Acute hypoxic respiratory insufficiency
70% saturation requiring 6 L of oxygen
Bilateral pulmonary infiltrates
Suspected infectious pneumonitis, less likely heart failure
Leukocytosis
Chronic hypercapnia, compensated
Baseline pCO2 78
Hyperglycemia
Conditions present prior to admission
History of atrial fibrillation
History of heart failure
Normal biventricular function
Mild pulmonary hypertension, PA pressure 41
Conditions present prior admission:
Hypertension/hyperlipidemia
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
ILD, mild patchy bronchiolitis on prior imaging
Former smoker, [id number] quit
Obstructive sleep apnea noncompliant with CPAP
Obesity hypoventilation syndrome
Chronic hypercapnic respiratory failure
Chronic lymphedema of the lower extremities
Chronic wound issues chronic GERD
With esophagitis
Chronic anemia
Chronic thrombocytopenia, on promacta
History of ITP
Morbid Obesity BMI 50
Hypothyroidism
History of uterine cancer, hysterectomy 2008
NHR
DNR
Plan recommendations
Patient with extremely complex medical history
She has chronic hypercapnic respiratory failure on CPAP. According to is noncompliant. She also has severe obstructive lung disease, maintained on outpatient nebulizer therapy
She has history of pulm hypertension
She is sedentary, with lymphedema, chronic wound issues right lower extremity
Recent echocardiogram with normal biventricular function
DNR status noted
Moving forward
Continue with what I suspect is infectious pneumonitis based on chest x-ray and exam
Chronic retirement resident
Continue with Zosyn therapy, cultures as able
Hold azithromycin Friday/Friday/Friday during hospital stay
Patient does have adequate cough
Encourage airway clearance
Follow cultures as able
ABG reviewed. Chronic compensated hypercapnia noted
Patient is supposed to be on BiPAP 05/16
admits that patient is noncompliant with this at the retirement
There is no indication for steroids at this time. Will follow
The patient does have chronic hypoxia, on home oxygen in the past
Presently appears to be comfortable with no use of accessory muscles
DVT prophylaxis: Patient on Eliquis for atrial fibrillation
GI prophylaxis: Remains on pantoprazole
DNR status noted
Will follow
Diagnostic Data:
CXR 05-23-23: No acute cardiopulmonary process.
CXR 05-20-23 c/w August 2022: portable film underpenetrated but c/w increased pulm vasc and parenchymal congestion
SHEFALI doppler 05-20-23 IMPRESSION: Limited study (patient could not tolerate compression) demonstrating no evidence of deep venous thrombosis
CXR 04/24- IMPRESSION: Possible early or mild pneumonitis in the lateral right midlung zone.
CT Scan: CHEST 04/24/22- Nonspecific pulmonary parenchymal findings, as described. Consider possible volume overload or congestive heart failure. Small regions of nonspecific bronchiolitis are suspected. Minor scarring versus atelectasis in the
posterior right lung base. Otherwise, no focal dense consolidation.
Echocardiogram 10/30/20 reviewed-EF 75%, mild mitral regurgitation, PA systolic estimated 52 the change from 09/03/18
Note: Renal ultrasound 10/31/20-unremarkable
PFT's: 02/08/20- FVC 1.53L 71%, FEV1 1.04L 65%, ratio 68 (moderate obstruction); TLC 2.48L 56%, DLCO 40%
[2024-01-14] MEDS: LIPITOR 40 MG PO (17:17)
--- NOTE | 2024-01-14 18:00 | PTCARENOTE ---
Patient alert and oriented but forgetful and very hard of hearing. Patient on 4L O2 n/c. Sp02 94-96%. Patient desaturates while sleeping. Afib on monitor 90-low 100's. VS stable. Patient's at bedside most of the day.
[2024-01-14 19:11] LABS: % Basophils 0.5 % (0-2); % Eosinophils 1.4 % (0-6); % Immature Granulocytes 1.3 % (0-0.5); % Lymphocytes 10.1 % (20.5-51.1); % Monocytes 14.5 % (1.7-9.3); % Neutrophils 72.2 % (42.2-75.2); Absolute Basophils 0.1 10^3/uL (0-0.2); Absolute Eosinophils 0.1 10^3/uL (0-0.7); Absolute Immature Granulocytes 0.1 10^3/uL (0-0.05); Absolute Lymphocytes 0.9 10^3/uL (1.2-3.4); Absolute Monocytes 1.3 10^3/uL (0.1-0.6); Absolute Neutrophils 6.6 10^3/uL (1.4-6.5); Hematocrit 33.5 % (37.0-47.0); Hemoglobin 10.4 g/dL (12.0-16.0); Mean Corpuscular Hgb 31.5 pg (27.0-31.0); Mean Corpuscular Volume 101.5 fL (81.0-99.0); Nucleated Red Blood Cells % 0.2 %; Platelet Count 227 10^3/uL (130-400); Red Cell Dist. Width 16.3 % (11.5-14.5); White Blood Cell Count 9.2 10^3/uL (4.8-10.8)
[2024-01-14 19:21] LABS: Blood Urea Nitrogen 26 mg/dl (7-17); Calcium 9.4 mg/dl (8.4-10.2); Chloride 91 mmol/L (98-107); Estimated Creatinine Clearance 64 ml/min; Glucose 188 mg/dl (70-99); Potassium 3.8 mmol/L (3.5-5.1); Sodium 140 mmol/L (135-145); eGFR > 60.00
[2024-01-14 19:38] LABS: Procalcitonin 0.05 ng/ml (0.0-0.25)
[2024-01-14 19:56] LABS: Carbon Dioxide 41 mmol/L (22-30)
--- NOTE | 2024-01-14 22:34 | PTCARENOTE ---
Assumed care of pt from dayshift. Pt aaox3, forgetful, [place]. Pt on 4L NC satting mid-high 90s at rest, desats to low 80s with turns. Afib on monitor HR 80s-100s. bp 153/103, took meds. Pt denies complaints, asking to watch movies. Call xie within
reach.
[2024-01-15] VITALS (17 sets, daily range): BP systolic 109–185; BP diastolic 63–132; PULSE 2; BMI 47.8
[2024-01-15] MEDS: HYDROCORTISONE 2.5% CREAM 1 APPLIC RECTAL ×2 (04:12→11:39)
[2024-01-15 04:49] LABS: % Basophils 0.7 % (0-2); % Eosinophils 2.2 % (0-6); % Immature Granulocytes 0.8 % (0-0.5); % Lymphocytes 13.4 % (20.5-51.1); % Monocytes 13.2 % (1.7-9.3); % Neutrophils 69.7 % (42.2-75.2); Absolute Basophils 0.1 10^3/uL (0-0.2); Absolute Eosinophils 0.2 10^3/uL (0-0.7); Absolute Immature Granulocytes 0.1 10^3/uL (0-0.05); Absolute Lymphocytes 1.2 10^3/uL (1.2-3.4); Absolute Monocytes 1.2 10^3/uL (0.1-0.6); Absolute Neutrophils 6.2 10^3/uL (1.4-6.5); Hematocrit 31.2 % (37.0-47.0); Hemoglobin 9.5 g/dL (12.0-16.0); Mean Corp Hgb Conc. 30.4 g/dL (33.0-37.0); Mean Corpuscular Hgb 31.1 pg (27.0-31.0); Mean Corpuscular Volume 102.3 fL (81.0-99.0); Mean Platelet Volume 8.9 fL (7.4-10.4); Nucleated Red Blood Cells % 0.2 %; Platelet Count 238 10^3/uL (130-400); Red Blood Cell Count 3.05 10^6/uL (4.20-5.40); Red Cell Dist. Width 16.1 % (11.5-14.5); White Blood Cell Count 8.8 10^3/uL (4.8-10.8)
[2024-01-15 05:15] LABS: Blood Urea Nitrogen 24 mg/dl (7-17); Calcium 9.2 mg/dl (8.4-10.2); Chloride 93 mmol/L (98-107); Estimated Creatinine Clearance 56 ml/min; Glucose 132 mg/dl (70-99); Potassium 3.6 mmol/L (3.5-5.1); Sodium 141 mmol/L (135-145); eGFR > 60.00
[2024-01-15] MEDS: LASIX 80 MG IV ×2 (05:22→16:15)
[2024-01-15] MEDS: ZOSYN 50 IV (05:22)
[2024-01-15] MEDS: SYNTHROID 112 MCG PO (05:22)
[2024-01-15 05:35] LABS: Carbon Dioxide 41 mmol/L (22-30)
--- NOTE | 2024-01-15 06:41 | PTCARENOTE ---
Pt bp elevated (170s/80s), c/o pain in rectum from hemorrhoids, hydrocortisone cream applied. bp rechecked later and still elevated 185/92, MEEK Maher notified, gave okay to give a bp med early, IV lasix given see AUG.
--- NOTE | 2024-01-15 06:47 | W.PN.PUL3 ---
Today's Communication / Plan
-
Antibiotics discontinued per primary service
Repeat chest x-ray 01/15
Continue nocturnal BiPAP
Aspiration precautions
Hypertensive therapy, diuresis per primary service
Assessment
-
83-year-old female with complex medical history, history of heart failure, COPD, sleep apnea with obesity hypoventilation on chronic oxygen therapy, CPAP therapy long term resident presents with hypoxia, respiratory distress found to have
bilateral infiltrates per chest x-ray. We are asked to comment on pulmonary process
Acute hypoxic respiratory insufficiency
70% saturation requiring 6 L of oxygen
Bilateral pulmonary infiltrates
Suspected infectious pneumonitis, less likely heart failure
Leukocytosis
Chronic hypercapnia, compensated
Baseline pCO2 78
Hyperglycemia
Conditions present prior to admission
History of atrial fibrillation
History of heart failure
Normal biventricular function
Mild pulmonary hypertension, PA pressure 41
Conditions present prior admission:
Hypertension/hyperlipidemia
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
ILD, mild patchy bronchiolitis on prior imaging
Former smoker, [id number] quit
Obstructive sleep apnea noncompliant with CPAP
Obesity hypoventilation syndrome
Chronic hypercapnic respiratory failure
Chronic lymphedema of the lower extremities
Chronic wound issues chronic GERD
With esophagitis
Chronic anemia
Chronic thrombocytopenia, on promacta
History of ITP
Morbid Obesity BMI 50
Hypothyroidism
History of uterine cancer, hysterectomy 2008
NHR
DNR
Plan recommendations
At this time, patient appears to be comfortable. Tolerated BiPAP overnight 15/5, 5 L
Chest exam appears to be improved
Procalcitonin negative. Antibiotics have been discontinued by primary service
Hypertension noted
She has chronic hypercapnic respiratory failure on CPAP. According to is noncompliant. She also has severe obstructive lung disease, maintained on outpatient nebulizer therapy
She has history of pulm hypertension
She is sedentary, with lymphedema, chronic wound issues right lower extremity
Recent echocardiogram with normal biventricular function
DNR status noted
Moving forward
Continue with what I suspect is infectious pneumonitis based on chest x-ray and exam
Chronic long term resident
Patient received 2 days of Zosyn therapy, cultures as able
Hold azithromycin Friday/Friday/Friday during hospital stay
Antibiotics now discontinued per primary service
Repeat chest x-ray 01/15
Patient does have adequate cough
Encourage airway clearance
Follow cultures as able
ABG reviewed. Chronic compensated hypercapnia noted
Patient is supposed to be on BiPAP 05/16. Tolerated 21/10 overnight
admits that patient is noncompliant with this at the long term
This should continue as outpatient
There is no indication for steroids at this time. Will follow
The patient does have chronic hypoxia, on home oxygen in the past
Presently appears to be comfortable with no use of accessory muscles
DVT prophylaxis: Patient on Eliquis for atrial fibrillation
GI prophylaxis: Remains on pantoprazole
DNR status noted
Disposition efforts
Diagnostic Data:
CXR 05-23-23: No acute cardiopulmonary process.
CXR 05-20-23 c/w August 2022: portable film underpenetrated but c/w increased pulm vasc and parenchymal congestion
SHEFALI doppler 05-20-23 IMPRESSION: Limited study (patient could not tolerate compression) demonstrating no evidence of deep venous thrombosis
CXR 04/24- IMPRESSION: Possible early or mild pneumonitis in the lateral right midlung zone.
CT Scan: CHEST 04/24/22- Nonspecific pulmonary parenchymal findings, as described. Consider possible volume overload or congestive heart failure. Small regions of nonspecific bronchiolitis are suspected. Minor scarring versus atelectasis in the
posterior right lung base. Otherwise, no focal dense consolidation.
Echocardiogram 10/30/20 reviewed-EF 75%, mild mitral regurgitation, PA systolic estimated 52 the change from 09/03/18
Note: Renal ultrasound 10/31/20-unremarkable
PFT's: 02/08/20- FVC 1.53L 71%, FEV1 1.04L 65%, ratio 68 (moderate obstruction); TLC 2.48L 56%, DLCO 40%
Subjective Data
-
Date of Service:
Date of Service: January 15, 2024
Subjective:
Patient examined earlier this morning. Appears comfortable. Tolerated BiPAP overnight 15/ with 5 L. Hypertension noted. Opened eyes from sleep, but remains sleepy
Objective Data
Data Reviewed
Vital Signs / I&O / Oxygen:
Vital Signs
Temp Pulse Resp BP Pulse Ox
99.1 F 104 21 185/83 97
01/15/24 04:22 01/15/24 05:30 01/15/24 05:30 01/15/24 04:56 01/15/24 05:30
Intake and Output
01/13/24 01/14/24 01/15/24
06:59 06:59 06:59
Intake Total 100 / 100 300 / 300
Output Total 3225 / 3225 2800 / 2800
Balance -3125 / -3125 -2500 / -2500
SaO2 97
Nasal Cannula flow liters per 4
minute
Physical Exam
General: Comfortable
HEENT: Normocephalic and Other (Large neck)
Cardiovascular: S1-S2, Regular Rhythm, Murmur (n), Rub (n) and Peripheral Edema (Chronic lymphedema, wrapping in place)
Respiratory: Wheeze (n), Crackles (n), Rhonchi (n), Non-Labored Respirations and Other (Decreased breath sounds)
GI: Soft, Non Distended (Morbidly obese) and Non Tender
Neurology: Lethargic (Arousable from sleep)
Skin: Warm and Cyanosis (n)
Labs/Micro/Reports
Lab Data
01/15/24 04:25
01/15/24 04:25
Microbiology
01/13/24 18:29 Nose Nasal Screen MRSA (PCR) - Final
MRSA not detected - performed by PCR methodology.
--- NOTE | 2024-01-15 06:54 | W.PN.HOSP.TC ---
Addendum entered and electronically signed by Sav Soto MD 01/15/24 10:02:
Acute on chronic hypoxemic and hypercapnic respiratory failure due to acute on chronic HFpEF
Original Note:
Today's Communication/Plan
-
see bold
Assessment / Plan
Assessment / Plan
Gen: NAD, Awake and alert
Eyes: EOMI, PERRLA, no scleral icterus.
Neck: supple.
CV: remains tachy, irreg/irreg, +S1/S2, no m/r/g.
Resp: CTAB anteriorly, no rales, wheezes, or rhonchi.
Abd: +BS, soft, NT, ND
Skin: Compression stockings on both lower extremities. 2-3+ bilateral lower extremity dependent edema.
Neuro: continues to remain CN 2-12 intact, non-focal.
Psych: Normal mood and affect.
Echo 05/21/23: Study was discontinued as patient refused to let technologist continue.
Normal left ventricular chamber size with concentric remodeling and
hyperdynamic left ventricular systolic function. No obvious wall motion
abnormalities. Left ventricular ejection fraction is 70-75% by visual
estimate. Diastolic function indeterminate.
Normal right ventricular size and function.
Mild left atrial dilation.
Moderate right atrial dilation.
Dense posterior mitral annular calcification.
Trileaflet, sclerotic aortic valve with calcification of the base of the right
coronary leaflet but adequate aortic leaflet excursion without stenosis.
Trivial pericardial effusion.
The IVC is not visualized.
RV/RA pressure gradient is 41 mmHg, implying at least mild pulmonary
hypertension.
CXR: There is patchy airspace disease bilaterally and diffusely consistent with diffuse pneumonia.
ECG on admission (read by me): Afib with RVR @ 122, nl axis, no acute ST/TW changes
Acute hypoxemic and hypercapnic respiratory failure due to acute on chronic HFpEF:
-Chest x-ray with pulmonary edema, proBNP 1030 in the setting of pulmonary restriction due to morbid obesity due to excess calories and underlying COPD (which does not appear to be in acute exacerbation)
-cont Lasix 80mg IV BID
-was on BIPAP 15/5 with 10L O2, now weaned to 5L NC O2. Wean for pulse ox 91%
-pulm/cards following
-stop abx with NEG Procal
Other problems:
Permanent Atrial fibrillation with RVR: Cont Eliquis. No BB with COPD.
PSVT
h/o Endometrial cancer
COPD: cont Duonebs/Azithro/Arnuity Ellipta
Essential hypertension: cont candesartan/clonidine/Cardizem. Increase Hydralazine to 25mg TID.
Hyperlipidemia: cont statin
Hypothyroidism: cont Levoxyl
ARIANA
Interstitial lung disease
Morbid obesity due to excess calories
Chronic macrocytic anemia
DNR/I - confirmed with the pt's in the ER
Eliquis
Due to the patient's advanced age and multiple, severe, active comorbidities, this patient would benefit from comfort care/hospice.
Anticipated Discharge: > 48 hours
Subjective/Interval History
-
Date of Service: January 15, 2024
No new complaints.
Objective Data
-
Labs:
Laboratory Results
01/14/24 01/15/24
18:53 04:25
WBC 9.2 8.8
Hgb 10.4 L 9.5 L
Hct 33.5 L 31.2 L
Plt Count 227 D 238
Sodium 140 141
Potassium 3.8 3.6
Chloride 91 L 93 L
Carbon Dioxide 41 H 41 H
BUN 26 H 24 H
Creatinine 0.8 0.9
Glucose 188 H 132 H
Calcium 9.4 9.2
Vital Signs:
Vital Signs
Temp Pulse Resp BP Pulse Ox
99.1 F 104 21 185/83 97
01/15/24 04:22 01/15/24 05:30 01/15/24 05:30 01/15/24 04:56 01/15/24 05:30
I&O
01/13/24 01/14/24 01/15/24
06:59 06:59 06:59
Intake Total 100 / 100 300 / 300
Output Total 3225 / 3225 2800 / 2800
Balance -3125 / -3125 -2500 / -2500
[2024-01-15] MEDS: FLOVENT 44 MCG INHALER 2 PUFF INH ×2 (07:39→19:59)
[2024-01-15] MEDS: DUONEB 3 ML INH ×4 (07:39→19:58)
[2024-01-15] MEDS: PROTONIX 20 MG PO (08:25)
[2024-01-15] MEDS: MYRBETRIQ EXTENDED RELEASE 50 MG PO (08:25)
[2024-01-15] MEDS: CARDIZEM CD 120 MG PO (08:26)
[2024-01-15] MEDS: ATACAND 4 MG PO (08:26)
[2024-01-15] MEDS: CATAPRES 0.1 MG PO ×2 (08:26→20:56)
[2024-01-15] MEDS: ELIQUIS 5 MG PO ×2 (08:26→20:55)
[2024-01-15] MEDS: TYLENOL 1000 MG PO ×2 (08:26→20:56)
[2024-01-15] MEDS: COLACE 200 MG PO (08:26)
[2024-01-15] MEDS: LAC HYDRIN, AM LACTIN LOTION 1 APPLIC TOPICAL ×2 (08:27→20:54)
[2024-01-15] MEDS: DESENEX/MITRAZOL/ZEASORB 1 APPLIC TOPICAL (08:27)
--- NOTE | 2024-01-15 09:19 | PN.CDI ---
CDI
- -
CDI:
Physician Documentation Request
Admit Date: 01/13/24 11:37
Dear Doctor Brittany,
Patient admitted for acute heart failure.
ED Physician Documentation: 'chronically maintained on 3 to 4 L'
01/13 Pulmonary Consult: 'Acute hypoxic respiratory insufficiency, 70% saturation requiring 6 L of oxygen'
01/14 Hospitalist PN: 'Acute hypoxemic and hypercapnic respiratory failure due to acute on chronic HFpEF...was on BIPAP 15/5 with 10L O2, now weaned to 5L NC O2. Wean for pulse ox 91%'
Please clarify the type and acuity of respiratory failure:
Acute on chronic hypoxic respiratory failure
Acute hypoxic respiratory failure
Chronic hypoxic respiratory failure
Acute hypoxic respiratory insufficiency
Other
Use of terms such as suspected, likely, concern for, or probable (associated with a specific diagnosis that is being evaluated, monitored, or treated as if it exists) are acceptable and can be coded in the inpatient setting, when documented at the
time of discharge.
Thank you,
Ivonne Dueñas RN, BSN
CDI Specialist
Available via [place] text
Please use your independent medical judgment in providing your response.
[2024-01-15] MEDS: APRESOLINE 25 MG PO ×3 (11:37→21:20)
--- NOTE | 2024-01-15 12:13 | CM ---
Patient from [facility] with Dx Acute hypoxemic and hypercapnic respiratory failure, HF, Suspected infectious pneumonitis, Permanent Atrial fibrillation with RVR. O2 4L. BiPAP. Receiving IV Lasix. Seen by wound care nurse.
CM Consult: pricing Farxiga and Jardiance 10mg each
Spoke with pharmacist, CPS @ [facility]; Jardiance covered with no out of pocket cost, Farxiga brand covered with no copay and preferred by insurance (dapagliflozin would require a prior auth) ---> info relayed to Bravo Herrera & Brittany.
[facility]: The ph for report [phone], fax [phone].
Plan contact patient/ prior to d/c.
Plan return to [facility] when medically ready.
--- NOTE | 2024-01-15 16:07 | W.PN.CD ---
Today's Communication / Plan
-
Cont IV diuresis
Start Farxiga 10 mg for HFpEF
Impression / Plan
-
Acute hypoxic and hypercapneic respiratory failure, suspect multifactorial
-On BiPAP
- PNA and HFpEF and being treated
-COPD and ILD chronically
- monitor reanl function.
HFpEF, acute on chronic
-Wt significantly up from last d/c at 111.15g in 05/2023.
-good response to lasix at -3L, states not having a great response at NH, additionally not compliant with CPAP
-continue 80 IV lasix with intensive monitoring of labs and bp
- Will start Farxiga 10 mg for HFpEF
-Trend daily weight, I/Os, and BMP with diuresis
Permanent Atrial fibrillation with RVR => rate improved with therapy.
-Rates controlled with increase in Diltiazem
-Avoid beta mike given underlying lung disease
-Oral Anticoagulation: Eliquis 5mg BID
-[id number]: score at least 5 (Heart failure, HTN, age 75 or more, female gender)
PNA:
-leukocytosis
-procal pending
-empiric abx
HTN, urgency:
-just receiving po medications, will monitor response and titrate prn
ILD/ARIANA with oxygen dependence, baseline 3LPM
Thrombocytopenia, on Promacta
ARIANA with chronic hypercapnia
Chronic lymphedema
Obesity, BMI 48
Subjective:
Breathing improved no new complaints
TTE 05/21/23:
Study was discontinued as patient refused to let technologist continue.
�Normal left ventricular chamber size with concentric remodeling and
�hyperdynamic left ventricular systolic function. No obvious wall motion
�abnormalities.� Left ventricular ejection fraction is 70-75% by visual
�estimate.� Diastolic function indeterminate.
�Normal right ventricular size and function.
�Mild left atrial dilation.
�Moderate right atrial dilation.
�Dense posterior mitral annular calcification.
�Trileaflet, sclerotic aortic valve with calcification of the base of the right
�coronary leaflet but adequate aortic leaflet excursion without stenosis.
�Trivial pericardial effusion.
�The IVC is not visualized.
�RV/RA pressure gradient is 41 mmHg, implying at least mild pulmonary
�hypertension.
Physical Exam
Vital Signs/Labs
Vital Signs
Temp Pulse Resp BP Pulse Ox
98.3 F 97 20 148/73 96
01/15/24 11:20 01/15/24 15:21 01/15/24 15:21 01/15/24 08:18 01/15/24 15:21
01/14/24 01/15/24 01/16/24
06:59 06:59 06:59
Actual Weight 266 lb 8.622 oz 261 lb 0.437 oz
01/15/24 04:25
01/15/24 04:25
01/13/24 01/13/24
09:19 09:50
Gpk-O-Iywlbkhbeyo Pept Cancelled 1030
LAB Results
01/13/24 01/13/24
09:19 09:50
Troponin I Cancelled < 0.012
Physical Exam
Constitutional: No acute distress
EENT: Anicteric
Cardiovascular: Rhythm/rate is irregular (distant heart soudns )
Respiratory: Respiratory effort normal
GI: Soft
Neuro/Psych: AO x 3
Data Reviewed
-
Date of Service: January 15, 2024
EKG: Tracing Personally Visualized and interpreted (af)
Echo: Report Reviewed by me
Labs: Labs Reviewed by me
[2024-01-15] MEDS: FLUSH (NSS) 1 FLUSH IV (16:17)
[2024-01-15] MEDS: FARXIGA 10 MG PO (18:19)
[2024-01-15] MEDS: LIPITOR 40 MG PO (18:19)
[2024-01-15] MEDS: DULCOLAX 10 MG RECTAL (21:20)
--- NOTE | 2024-01-15 23:39 | PTCARENOTE ---
Received pt from day shift. Pt is AAOx3, forgetful and [place]. Resting in bed at 95% on 4L NC. Pt cleaned and changed. Pt has chronic rodriguez, rodriguez care done. Increased O2 during changing, due to desats with turning. Desats while sleeping, wears Bipap
HS. Pt afib on the monitor HR 80-90s. VSS. Call xie within reach.
[2024-01-16] VITALS (13 sets, daily range): BP systolic 93–163; BP diastolic 64–97; PULSE 2–99; O2SAT 97; BMI 47.6
[2024-01-16] MEDS: NON-FORMULARY ITEM 75 MG PO (05:23)
[2024-01-16] MEDS: SYNTHROID 112 MCG PO (05:24)
[2024-01-16 05:51] LABS: % Basophils 0.5 % (0-2); % Immature Granulocytes 0.8 % (0-0.5); % Lymphocytes 9.3 % (20.5-51.1); % Monocytes 11.3 % (1.7-9.3); % Neutrophils 77.1 % (42.2-75.2); Absolute Basophils 0.1 10^3/uL (0-0.2); Absolute Eosinophils 0.1 10^3/uL (0-0.7); Absolute Immature Granulocytes 0.1 10^3/uL (0-0.05); Absolute Lymphocytes 0.9 10^3/uL (1.2-3.4); Absolute Monocytes 1.1 10^3/uL (0.1-0.6); Absolute Neutrophils 7.3 10^3/uL (1.4-6.5); Hematocrit 29.9 % (37.0-47.0); Hemoglobin 9.5 g/dL (12.0-16.0); Mean Corp Hgb Conc. 31.8 g/dL (33.0-37.0); Mean Corpuscular Hgb 31.6 pg (27.0-31.0); Mean Corpuscular Volume 99.3 fL (81.0-99.0); Mean Platelet Volume 9.3 fL (7.4-10.4); Nucleated Red Blood Cells % 0.2 %; Platelet Count 236 10^3/uL (130-400); Red Blood Cell Count 3.01 10^6/uL (4.20-5.40); Red Cell Dist. Width 16.4 % (11.5-14.5); White Blood Cell Count 9.4 10^3/uL (4.8-10.8)
[2024-01-16 06:14] LABS: Blood Urea Nitrogen 23 mg/dl (7-17); Calcium 9.2 mg/dl (8.4-10.2); Chloride 93 mmol/L (98-107); Estimated Creatinine Clearance 56 ml/min; Glucose 160 mg/dl (70-99); Potassium 3.6 mmol/L (3.5-5.1); Sodium 139 mmol/L (135-145); eGFR > 60.00
[2024-01-16 06:26] LABS: Carbon Dioxide 39 mmol/L (22-30)
--- NOTE | 2024-01-16 07:28 | W.PN.PUL3 ---
Today's Communication / Plan
-
Patient objectively, subjectively improved
Chest x-ray improved
Continue diuresis
Continue nocturnal BiPAP
Disposition efforts
We will sign off. Please call with questions
Assessment
-
83-year-old female with complex medical history, history of heart failure, COPD, sleep apnea with obesity hypoventilation on chronic oxygen therapy, CPAP therapy senior living resident presents with hypoxia, respiratory distress found to have
bilateral infiltrates per chest x-ray. We are asked to comment on pulmonary process
Acute hypoxic respiratory insufficiency
70% saturation requiring 6 L of oxygen
Bilateral pulmonary infiltrates
Suspected infectious pneumonitis, less likely heart failure
Leukocytosis
Chronic hypercapnia, compensated
Baseline pCO2 78
Hyperglycemia
Conditions present prior to admission
History of atrial fibrillation
History of heart failure
Normal biventricular function
Mild pulmonary hypertension, PA pressure 41
Conditions present prior admission:
Hypertension/hyperlipidemia
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
ILD, mild patchy bronchiolitis on prior imaging
Former smoker, [id number] quit
Obstructive sleep apnea noncompliant with CPAP
Obesity hypoventilation syndrome
Chronic hypercapnic respiratory failure
Chronic lymphedema of the lower extremities
Chronic wound issues chronic GERD
With esophagitis
Chronic anemia
Chronic thrombocytopenia, on promacta
History of ITP
Morbid Obesity BMI 50
Hypothyroidism
History of uterine cancer, hysterectomy 2008
NHR
DNR
Plan recommendations
At this time, patient appears to be comfortable. Tolerated BiPAP overnight 15/5, 5 L
Chest exam appears to be improved
Procalcitonin negative. Antibiotics have been discontinued by primary service
Hypertension noted
Chest x-ray 01/15 with significant improvement bilaterally
She has chronic hypercapnic respiratory failure on CPAP. According to is noncompliant. She also has severe obstructive lung disease, maintained on outpatient nebulizer therapy
She has history of pulm hypertension
She is sedentary, with lymphedema, chronic wound issues right lower extremity
Recent echocardiogram with normal biventricular function
DNR status noted
Moving forward
Continue with what I suspect is infectious pneumonitis based on chest x-ray and exam
Chronic senior living resident
Patient received 2 days of Zosyn therapy, cultures as able
Hold azithromycin Friday/Friday/Friday during hospital stay. Can resume at time of discharge
Antibiotics now discontinued per primary service
Chest x-ray overall improved more consistent with heart failure
Patient does have adequate cough
Encourage airway clearance
Follow cultures as able
ABG reviewed. Chronic compensated hypercapnia noted
Patient is supposed to be on BiPAP 05/16. Tolerated 15/ overnight
admits that patient is noncompliant with this at the senior living
This should continue as outpatient
There is no indication for steroids at this time. Will follow
The patient does have chronic hypoxia, on home oxygen in the past
Presently appears to be comfortable with no use of accessory muscles
DVT prophylaxis: Patient on Eliquis for atrial fibrillation
GI prophylaxis: Remains on pantoprazole
DNR status noted
Disposition efforts
We will sign off. Please call with questions
Diagnostic Data:
CXR 05-23-23: No acute cardiopulmonary process.
CXR 05-20-23 c/w August 2022: portable film underpenetrated but c/w increased pulm vasc and parenchymal congestion
SHEFALI doppler 05-20-23 IMPRESSION: Limited study (patient could not tolerate compression) demonstrating no evidence of deep venous thrombosis
CXR 04/24- IMPRESSION: Possible early or mild pneumonitis in the lateral right midlung zone.
CT Scan: CHEST 04/24/22- Nonspecific pulmonary parenchymal findings, as described. Consider possible volume overload or congestive heart failure. Small regions of nonspecific bronchiolitis are suspected. Minor scarring versus atelectasis in the
posterior right lung base. Otherwise, no focal dense consolidation.
Echocardiogram 10/30/20 reviewed-EF 75%, mild mitral regurgitation, PA systolic estimated 52 the change from 09/03/18
Note: Renal ultrasound 10/31/20-unremarkable
PFT's: 02/08/20- FVC 1.53L 71%, FEV1 1.04L 65%, ratio 68 (moderate obstruction); TLC 2.48L 56%, DLCO 40%
Subjective Data
-
Date of Service:
Date of Service: January 16, 2024
Subjective:
Patient without complaints. Tolerating BiPAP overnight. Negative fluid status noted
Objective Data
Data Reviewed
Vital Signs / I&O / Oxygen:
Vital Signs
Temp Pulse Resp BP Pulse Ox
97.7 F 93 10 153/90 98
01/16/24 04:21 01/16/24 06:00 01/16/24 06:00 01/16/24 06:00 01/16/24 06:00
Intake and Output
01/15/24 01/16/24 01/17/24
06:59 06:59 06:59
Intake Total 300 / 300 585 / 585
Output Total 2800 / 2800 2080 / 2080
Balance -2500 / -2500 -1495 / -1495
SaO2 98
Nasal Cannula flow liters per 4
minute
Physical Exam
General: Comfortable
HEENT: Normocephalic and Other (Large neck)
Cardiovascular: S1-S2, Regular Rhythm, Murmur (n), Rub (n) and Peripheral Edema (Chronic lymphedema, wrapping in place)
Respiratory: Wheeze (n), Crackles (n), Rhonchi (n), Non-Labored Respirations and Other (Decreased breath sounds)
GI: Soft, Non Distended (Morbidly obese) and Non Tender
Neurology: Awake, Alert and No Motor Deficits (Moves all extremities)
Skin: Warm and Cyanosis (n)
Labs/Micro/Reports
Lab Data
01/16/24 05:36
01/16/24 05:36
Microbiology
01/13/24 18:29 Nose Nasal Screen MRSA (PCR) - Final
MRSA not detected - performed by PCR methodology.
[2024-01-16] MEDS: FLOVENT 44 MCG INHALER 2 PUFF INH ×2 (07:29→20:43)
[2024-01-16] MEDS: DUONEB 3 ML INH ×4 (07:29→20:43)
--- NOTE | 2024-01-16 07:34 | W.PN.HOSP.TC ---
Today's Communication/Plan
-
see bold
Assessment / Plan
Assessment / Plan
Gen: NAD, Awake and alert
Eyes: EOMI, PERRLA, no scleral icterus.
Neck: supple.
CV: irreg/irreg, +S1/S2, no m/r/g.
Resp: remains CTAB anteriorly, no rales, wheezes, or rhonchi.
Abd: +BS, soft, NT, ND
Skin: 2 bilateral lower extremity dependent edema.
Neuro: CN 2-12 intact, non-focal.
Psych: Normal mood and affect.
Echo 05/21/23: Study was discontinued as patient refused to let technologist continue.
Normal left ventricular chamber size with concentric remodeling and
hyperdynamic left ventricular systolic function. No obvious wall motion
abnormalities. Left ventricular ejection fraction is 70-75% by visual
estimate. Diastolic function indeterminate.
Normal right ventricular size and function.
Mild left atrial dilation.
Moderate right atrial dilation.
Dense posterior mitral annular calcification.
Trileaflet, sclerotic aortic valve with calcification of the base of the right
coronary leaflet but adequate aortic leaflet excursion without stenosis.
Trivial pericardial effusion.
The IVC is not visualized.
RV/RA pressure gradient is 41 mmHg, implying at least mild pulmonary
hypertension.
CXR: There is patchy airspace disease bilaterally and diffusely consistent with diffuse pneumonia.
ECG on admission (read by me): Afib with RVR @ 122, nl axis, no acute ST/TW changes
Acute hypoxemic and hypercapnic respiratory failure due to acute on chronic HFpEF:
-Chest x-ray with pulmonary edema, proBNP 1030 in the setting of pulmonary restriction due to morbid obesity due to excess calories and underlying COPD (which does not appear to be in acute exacerbation)
-cont Lasix 80mg IV BID
-was on BIPAP 15/5 with 10L O2, now weaned to 4L NC O2. Wean for pulse ox 91%
-pulm/cards following
Other problems:
Permanent Atrial fibrillation with RVR: Cont Eliquis. No BB with COPD.
PSVT
h/o Endometrial cancer
COPD: cont Duonebs/Azithro/Arnuity Ellipta
Essential hypertension: cont candesartan/clonidine/Cardizem/Hydralazine
Hyperlipidemia: cont statin
Hypothyroidism: cont Levoxyl
ARIANA
Interstitial lung disease
Morbid obesity due to excess calories
Chronic macrocytic anemia
DNR/I - confirmed with the pt's in the ER
Eliquis
Due to the patient's advanced age and multiple, severe, active comorbidities, this patient would benefit from comfort care/hospice.
Anticipated Discharge: 24 - 48 hours
Subjective/Interval History
-
Date of Service: January 16, 2024
Denies SOB.
Objective Data
-
Labs:
Laboratory Results
01/16/24
05:36
WBC 9.4
Hgb 9.5 L
Hct 29.9 L
Plt Count 236
Sodium 139
Potassium 3.6
Chloride 93 L
Carbon Dioxide 39 H
BUN 23 H
Creatinine 0.9
Glucose 160 H
Calcium 9.2
Vital Signs:
Vital Signs
Temp Pulse Resp BP Pulse Ox
97.7 F 93 10 153/90 98
01/16/24 04:21 01/16/24 06:00 01/16/24 06:00 01/16/24 06:00 01/16/24 06:00
I&O
01/15/24 01/16/24 01/17/24
06:59 06:59 06:59
Intake Total 300 / 300 585 / 585
Output Total 2800 / 2800 2080 / 2080
Balance -2500 / -2500 -1495 / -1495
--- NOTE | 2024-01-16 08:00 | PTCARENOTE ---
Pt awakens to name. Chronic rodriguez . does not want to order breakfast. came in with some fruit for her.Pt very [place]. on 4l O2 at 94%, Pt in Afib .
[2024-01-16] MEDS: COLACE 200 MG PO (08:17)
[2024-01-16] MEDS: CARDIZEM CD 120 MG PO (08:18)
[2024-01-16] MEDS: PROTONIX 20 MG PO (08:18)
[2024-01-16] MEDS: FARXIGA 10 MG PO (08:19)
[2024-01-16] MEDS: APRESOLINE 25 MG PO ×3 (08:19→19:39)
[2024-01-16] MEDS: TYLENOL 1000 MG PO ×2 (08:20→19:39)
[2024-01-16] MEDS: VITAMIN C 500 MG PO (08:20)
[2024-01-16] MEDS: ELIQUIS 5 MG PO ×2 (08:20→19:38)
[2024-01-16] MEDS: MYRBETRIQ EXTENDED RELEASE 50 MG PO (08:21)
[2024-01-16] MEDS: CATAPRES 0.1 MG PO ×2 (08:21→19:39)
[2024-01-16] MEDS: LASIX 80 MG IV ×2 (08:22→17:18)
[2024-01-16] MEDS: FEOSOL 325 MG PO (08:22)
[2024-01-16] MEDS: ATACAND 4 MG PO (08:22)
--- NOTE | 2024-01-16 10:08 | W.PN.CD ---
Today's Communication / Plan
-
Cont iv diuresis, Farxiga
Increased dilt to 180 for better HR control
Impression / Plan
-
Acute hypoxic and hypercapneic respiratory failure, suspect multifactorial
- remains on oxygen
- PNA and HFpEF and being treated
-COPD and ILD chronically
- monitor reanl function.
HFpEF, acute on chronic
-She has diuresed, goal weight ~250 Jan 15 she weighs 259 lbs
- Will likeley increase lasix to 80 mg bid on d/x
-continue 80 IV lasix with intensive monitoring of labs and bp
- Cont Farxiga 10 mg for HFpEF
-Trend daily weight, I/Os, and BMP with diuresis
Permanent Atrial fibrillation with RVR => rate improved with therapy.
-Dilt 180 for better HR control
-Avoid beta mike given underlying lung disease
-Oral Anticoagulation: Eliquis 5mg BID
-[id number]: score at least 5 (Heart failure, HTN, age 75 or more, female gender)
PNA:
-leukocytosis
-procal pending
-empiric abx
HTN, urgency:
-just receiving po medications, will monitor response and titrate prn
ILD/ARIANA with oxygen dependence, baseline 3LPM
Thrombocytopenia, on Promacta
ARIANA with chronic hypercapnia
Chronic lymphedema
Obesity, BMI 48
Subjective:
Cont to feel better
TTE 05/21/23:
Study was discontinued as patient refused to let technologist continue.
�Normal left ventricular chamber size with concentric remodeling and
�hyperdynamic left ventricular systolic function. No obvious wall motion
�abnormalities.� Left ventricular ejection fraction is 70-75% by visual
�estimate.� Diastolic function indeterminate.
�Normal right ventricular size and function.
�Mild left atrial dilation.
�Moderate right atrial dilation.
�Dense posterior mitral annular calcification.
�Trileaflet, sclerotic aortic valve with calcification of the base of the right
�coronary leaflet but adequate aortic leaflet excursion without stenosis.
�Trivial pericardial effusion.
�The IVC is not visualized.
�RV/RA pressure gradient is 41 mmHg, implying at least mild pulmonary
�hypertension.
Physical Exam
Vital Signs/Labs
Vital Signs
Temp Pulse Resp BP Pulse Ox
98.4 F 102 19 133/70 95
01/16/24 08:02 01/16/24 10:00 01/16/24 10:00 01/16/24 09:53 01/16/24 09:56
01/15/24 01/16/24 01/17/24
06:59 06:59 06:59
Actual Weight 261 lb 0.437 oz 259 lb 14.8 oz
01/16/24 05:36
01/16/24 05:36
01/13/24 01/13/24
09:19 09:50
Ovn-A-Cnnnflyhynn Pept Cancelled 1030
LAB Results
01/13/24
09:50
Troponin I < 0.012
Physical Exam
Constitutional: No acute distress
EENT: Anicteric
Cardiovascular: Rhythm/rate is irregular and Pedal edema present
Respiratory: Other (decreased b/s b/l )
GI: Soft
Neuro/Psych: AO x 3
Data Reviewed
-
Date of Service: January 16, 2024
EKG: Tracing Personally Visualized and interpreted (af)
Echo: Report Reviewed by me
Labs: Labs Reviewed by me
--- NOTE | 2024-01-16 10:25 | PTOTSP ---
Pt requires max assist of 2 for bed mobility. stated staff at [facility] uses pby-wi-bhujn lift for transfer OOB to wheelchair at baseline. No acute rehab goals as pt is at her baseline. Nursing staff should use mechanical lift her e for transfers
OOB to chair prn. This is not skilled PT activity. PT will sign off.
[2024-01-16] MEDS: ZITHROMAX 250 MG PO (10:56)
[2024-01-16] MEDS: LAC HYDRIN, AM LACTIN LOTION 1 APPLIC TOPICAL ×2 (10:56→19:38)
--- NOTE | 2024-01-16 12:59 | CM ---
CM following re: discharge planning.
Reviewed pt's chart, met with pt.
PT and OT evaluations noted - no skilled PT/OT needs. Pt is dependent with care.
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, on private pay bed hold.
[facility] nursing report [phone],
Discharge instructions fax [phone].
D/C plan: return back to [facility] for a LTC
CM will follow to assist pt with discharge back to [facility]
--- NOTE | 2024-01-16 15:46 | PTCARENOTE ---
Pt changed for large stool , bathed sheets changed and repositioned. was asked if he wanted to leave [facility] room which he did. returned to room very angry because the trash can was not near the bed and there was no pillow under her
feet. Pt has declined pillow before he came in room.
[2024-01-16] MEDS: LIPITOR 40 MG PO (17:12)
[2024-01-16] MEDS: ANTIFUNGAL CLEAR 1 APPLIC TOPICAL (19:39)
--- NOTE | 2024-01-16 22:53 | PTCARENOTE ---
assumed care of patient, pt is AAOx3, [place] and forgetful. pt able to make needs known. uses call xie appropriately. pt incontinent of stool, cleaned up. oxygen 10L midflow, 98%. pt does desat at times. encouraged to take deep breaths. took pills
without issues. q2t. wound on right hwnag cleaned and dressing changed. call xie within reach, care ongoing.
[2024-01-17] VITALS (15 sets, daily range): BP systolic 140–173; BP diastolic 64–115; PULSE 2–92; BMI 48.3
[2024-01-17] MEDS: SYNTHROID 112 MCG PO (04:22)
[2024-01-17] MEDS: DUONEB 3 ML INH ×4 (07:35→21:11)
[2024-01-17] MEDS: FLOVENT 44 MCG INHALER 2 PUFF INH ×2 (07:35→21:11)
--- NOTE | 2024-01-17 08:17 | W.PN.HOSP.TC ---
Today's Communication/Plan
-
see bold
Assessment / Plan
Assessment / Plan
Gen: NAD, Awake and alert
Eyes: EOMI, PERRLA, no scleral icterus.
Neck: supple.
CV: remains irreg/irreg, +S1/S2, no m/r/g.
Resp: continues to remain CTAB anteriorly, no rales, wheezes, or rhonchi.
Abd: +BS, soft, NT, ND
Skin: 1+ bilateral lower extremity dependent edema.
Neuro: CN 2-12 intact, non-focal.
Psych: Normal mood and affect.
Echo 05/21/23: Study was discontinued as patient refused to let technologist continue.
Normal left ventricular chamber size with concentric remodeling and
hyperdynamic left ventricular systolic function. No obvious wall motion
abnormalities. Left ventricular ejection fraction is 70-75% by visual
estimate. Diastolic function indeterminate.
Normal right ventricular size and function.
Mild left atrial dilation.
Moderate right atrial dilation.
Dense posterior mitral annular calcification.
Trileaflet, sclerotic aortic valve with calcification of the base of the right
coronary leaflet but adequate aortic leaflet excursion without stenosis.
Trivial pericardial effusion.
The IVC is not visualized.
RV/RA pressure gradient is 41 mmHg, implying at least mild pulmonary
hypertension.
CXR: There is patchy airspace disease bilaterally and diffusely consistent with diffuse pneumonia.
ECG on admission (read by me): Afib with RVR @ 122, nl axis, no acute ST/TW changes
Acute hypoxemic and hypercapnic respiratory failure due to acute on chronic HFpEF:
-Chest x-ray with pulmonary edema, proBNP 1030 in the setting of pulmonary restriction due to morbid obesity due to excess calories and underlying COPD (which is not in acute exacerbation)
-cont Lasix 80mg IV BID
-was on BIPAP 15/5 with 10L O2 on admission, now weaned to 8L midflow O2. Wean for pulse ox 91%.
-pulm/cards following
Other problems:
Permanent Atrial fibrillation with RVR: Cont Eliquis. No BB with COPD.
PSVT
h/o Endometrial cancer
COPD: cont Duonebs/Azithro/Arnuity Ellipta
Essential hypertension: cont candesartan/clonidine/Cardizem/Hydralazine
Hyperlipidemia: cont statin
Hypothyroidism: cont Levoxyl
ARIANA
Interstitial lung disease
Morbid obesity due to excess calories
Chronic macrocytic anemia
DNR/I - confirmed with the pt's in the ER
Eliquis
Due to the patient's advanced age and multiple, severe, active comorbidities, this patient would benefit from comfort care/hospice.
Anticipated Discharge: 24 - 48 hours
Subjective/Interval History
-
Date of Service: January 17, 2024
No new complaints.
Objective Data
-
Vital Signs:
Vital Signs
Temp Pulse Resp BP Pulse Ox
96.8 F L 91 16 168/81 97
01/17/24 03:28 01/17/24 07:39 01/17/24 07:39 01/17/24 06:00 01/17/24 07:39
I&O
01/16/24 01/17/24 01/18/24
06:59 06:59 06:59
Intake Total 585 / 585
Output Total 2079 / 2079 1050 / 1050
Balance -1495 / -1495 -1050 / -1050
[2024-01-17] MEDS: LAC HYDRIN, AM LACTIN LOTION 1 APPLIC TOPICAL ×2 (08:35→19:50)
[2024-01-17] MEDS: MYRBETRIQ EXTENDED RELEASE 50 MG PO (08:35)
[2024-01-17] MEDS: FARXIGA 10 MG PO (08:36)
[2024-01-17] MEDS: PROTONIX 20 MG PO (08:36)
[2024-01-17] MEDS: TYLENOL 1000 MG PO ×2 (08:36→19:49)
[2024-01-17] MEDS: COLACE PO (08:37)
[2024-01-17] MEDS: ELIQUIS 5 MG PO ×2 (08:37→19:49)
[2024-01-17] MEDS: CATAPRES 0.1 MG PO ×2 (08:37→19:48)
[2024-01-17] MEDS: MIRALAX PO (08:37)
[2024-01-17] MEDS: APRESOLINE 25 MG PO (08:38)
[2024-01-17] MEDS: CARDIZEM CD 180 MG PO (08:38)
[2024-01-17] MEDS: DESENEX/MITRAZOL/ZEASORB 1 APPLIC TOPICAL (08:39)
[2024-01-17] MEDS: LASIX 80 MG IV ×2 (08:39→15:24)
[2024-01-17] MEDS: ANTIFUNGAL CLEAR 1 APPLIC TOPICAL ×2 (08:41→19:47)
[2024-01-17] MEDS: ATACAND 4 MG PO (08:52)
--- NOTE | 2024-01-17 10:20 | W.PN.CD ---
Today's Communication / Plan
-
incrase hydralazine
continue diuresis
Impression / Plan
-
Acute hypoxic and hypercapneic respiratory failure, suspect multifactorial
- remains on oxygen
- PNA and HFpEF and being treated
-COPD and ILD chronically
- monitor reanl function.
HFpEF, acute on chronic
-She has diuresed, goal weight ~250 Jan 15 she weighs 259 lbs
-Primary cardiology would like to increase home lasix to 80 mg bid on d/x
-continue 80 IV lasix with intensive monitoring of labs and bp
-negative on I/Os
- Cont Farxiga 10 mg for HFpEF
-Trend daily weight, I/Os, and BMP with diuresis
Permanent Atrial fibrillation with RVR => rate improved with therapy.
-Dilt 180 for better HR control
-Avoid beta mike given underlying lung disease
-Oral Anticoagulation: Eliquis 5mg BID
-[id number]: score at least 5 (Heart failure, HTN, age 75 or more, female gender)
PNA:
-leukocytosis
-procal pending
-empiric abx
HTN, urgency:
-will increase hydralazine to 50 TID
ILD/ARIANA with oxygen dependence, baseline 3LPM
Thrombocytopenia, on Promacta
ARIANA with chronic hypercapnia
Chronic lymphedema
Obesity, BMI 48
Subjective:
Cont to feel better, bored by the new
TTE 05/21/23:
Study was discontinued as patient refused to let technologist continue.
�Normal left ventricular chamber size with concentric remodeling and
�hyperdynamic left ventricular systolic function. No obvious wall motion
�abnormalities.� Left ventricular ejection fraction is 70-75% by visual
�estimate.� Diastolic function indeterminate.
�Normal right ventricular size and function.
�Mild left atrial dilation.
�Moderate right atrial dilation.
�Dense posterior mitral annular calcification.
�Trileaflet, sclerotic aortic valve with calcification of the base of the right
�coronary leaflet but adequate aortic leaflet excursion without stenosis.
�Trivial pericardial effusion.
�The IVC is not visualized.
�RV/RA pressure gradient is 41 mmHg, implying at least mild pulmonary
�hypertension.
Physical Exam
Vital Signs/Labs
Vital Signs
Temp Pulse Resp BP Pulse Ox
96.8 F L 82 16 147/70 97
01/17/24 03:28 01/17/24 08:39 01/17/24 07:39 01/17/24 08:39 01/17/24 07:39
01/16/24 01/17/24 01/18/24
06:59 06:59 06:59
Actual Weight 117.9 kg 119.6 kg
01/16/24 05:36
01/13/24 01/13/24
09:19 09:50
Nrh-V-Lpjipvzwone Pept Cancelled 1030
Physical Exam
Constitutional: No acute distress
Cardiovascular: Systolic murmur absent, Rhythm/rate is irregular and Pedal edema present (2+)
Respiratory: Respiratory effort normal, Lungs clear to auscul., Wheeze Absent and Crackles Absent
Neuro/Psych: AO x 3
Data Reviewed
-
Date of Service: January 17, 2024
Medical Decision Making: Test Interpretation and Review of Case with other Provider (dR Soto increased hydralazine)
EKG: Other (TELE: RATE CONTROLLED FIB)
[2024-01-17 11:33] LABS: Blood Urea Nitrogen 24 mg/dl (7-17); Calcium 9.1 mg/dl (8.4-10.2); Chloride 91 mmol/L (98-107); Estimated Creatinine Clearance 51 ml/min; Glucose 134 mg/dl (70-99); Potassium 3.4 mmol/L (3.5-5.1); Sodium 139 mmol/L (135-145); eGFR 55.21
[2024-01-17 11:43] LABS: Carbon Dioxide 43 mmol/L (22-30)
[2024-01-17] MEDS: APRESOLINE 50 MG PO ×2 (15:23→21:49)
[2024-01-17] MEDS: LIPITOR 40 MG PO (17:09)
--- NOTE | 2024-01-17 21:00 | PTCARENOTE ---
Resumed care of pt this evening. Pt is A&Ox3, very hard of hearing, has generalized weakness, can move all 4 extremities, and can make needs known. Pt is in A-fib on tele monitor, has an irregular apical, +3 pitting edema in B/L lower extremities,
and weak but palpable pedal pulses. Pt is on 8L of O2 satting at 98% pulse ox. On auscultation pt lungs sound diminished and coarse TO. Pt's abdomen is round, obese, and has +BS. Pt incontinent of bowel. Chronic rodriguez in place draining allegra colored
urine. Pt has MSAD on groin area, anti fungal ointment applied by this RN. 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 Dressing is C/D/I.
[2024-01-18] VITALS (15 sets, daily range): BP systolic 125–162; BP diastolic 62–96; PULSE 2–88; BMI 47.2
[2024-01-18] MEDS: SYNTHROID 112 MCG PO (05:19)
[2024-01-18] MEDS: NON-FORMULARY ITEM 75 MG PO (05:20)
[2024-01-18 07:10] LABS: Blood Urea Nitrogen 26 mg/dl (7-17); Calcium 9.4 mg/dl (8.4-10.2); Chloride 92 mmol/L (98-107); Estimated Creatinine Clearance 55 ml/min; Glucose 132 mg/dl (70-99); Potassium 3.2 mmol/L (3.5-5.1); Sodium 139 mmol/L (135-145); eGFR > 60.00
[2024-01-18 07:30] LABS: Carbon Dioxide 42 mmol/L (22-30)
[2024-01-18] MEDS: FLOVENT 44 MCG INHALER 2 PUFF INH ×2 (07:47→19:54)
[2024-01-18] MEDS: DUONEB 3 ML INH ×4 (07:47→19:55)
--- NOTE | 2024-01-18 07:54 | W.PN.HOSP.TC ---
Today's Communication/Plan
-
diuresis
replace K
Assessment / Plan
Assessment / Plan
Echo 05/21/23: Study was discontinued as patient refused to let technologist continue.Normal left ventricular chamber size with concentric remodeling and hyperdynamic left ventricular systolic function. No obvious wall motion abnormalities. Left
ventricular ejection fraction is 70-75% by visual estimate. Diastolic function indeterminate. Normal right ventricular size and function.Mild left atrial dilation.Moderate right atrial dilation.Dense posterior mitral annular
calcification.Trileaflet, sclerotic aortic valve with calcification of the base of the right coronary leaflet but adequate aortic leaflet excursion without stenosis.Trivial pericardial effusion.The IVC is not visualized.RV/RA pressure gradient is 41
mmHg, implying at least mild pulmonary
hypertension.
CXR: There is patchy airspace disease bilaterally and diffusely consistent with diffuse pneumonia.
Cardiovascular system [id number]
Chest decreased breath sounds at bases-few rales bilateral
Abdomen soft and nontender
Lower extremity mild edema
Acute hypoxemic and hypercapnic respiratory failure due to acute on chronic HFpEF:
-Chest x-ray with pulmonary edema, proBNP 1030 in the setting of pulmonary restriction due to morbid obesity due to excess calories and underlying COPD (which is not in acute exacerbation)
-Cont Lasix 80mg IV BID
-Was on BIPAP 15/5 with 10L O2 on admission, now weaned to 8L midflow O2. Wean for pulse ox 91%.
-Pulm/cards following
-On Farxiga
Hypokalemia-replace
Other problems:
Permanent Atrial fibrillation with RVR: Cont Eliquis. No BB with COPD.
PSVT
h/o Endometrial cancer
COPD: cont Duonebs/Azithro/Arnuity Ellipta
Essential hypertension: cont candesartan/clonidine/Cardizem/Hydralazine
Hyperlipidemia: cont statin
Hypothyroidism: cont Levoxyl
ARIANA
Interstitial lung disease
Morbid obesity due to excess calories
Chronic macrocytic anemia
Zbmtryxukm-vfdsj-kjehvbrifrewf for the past 6 months per
DNR/I - confirmed with the pt's in the ER
DVT prophylaxis-Eliquis
Discussed with at bedside
Anticipated Discharge: > 48 hours
Subjective/Interval History
-
Date of Service: January 18, 2024
Objective Data
-
Labs:
Laboratory Results
01/18/24
06:37
Sodium 139
Potassium 3.2 L
Chloride 92 L
Carbon Dioxide 42 H
BUN 26 H
Creatinine 0.9
Glucose 132 H
Calcium 9.4
Vital Signs:
Vital Signs
Temp Pulse Resp BP Pulse Ox
97.8 F 90 16 159/68 96
01/18/24 03:27 01/18/24 07:48 01/18/24 07:48 01/18/24 04:00 01/18/24 07:48
I&O
01/17/24 01/18/24 01/19/24
06:59 06:59 06:59
Output Total 1050 / 1050 900 / 900
Balance -1050 / -1050 -900 / -900
[2024-01-18] MEDS: LASIX 80 MG IV ×2 (08:11→17:11)
[2024-01-18] MEDS: COLACE 200 MG PO (08:13)
[2024-01-18] MEDS: KCL 40 MEQ PO (08:13)
[2024-01-18] MEDS: MYRBETRIQ EXTENDED RELEASE 50 MG PO (08:14)
[2024-01-18] MEDS: CATAPRES 0.1 MG PO ×2 (08:14→21:08)
[2024-01-18] MEDS: FARXIGA 10 MG PO (08:15)
[2024-01-18] MEDS: TYLENOL 1000 MG PO ×2 (08:15→21:07)
[2024-01-18] MEDS: CARDIZEM CD 180 MG PO (08:15)
[2024-01-18] MEDS: ATACAND 4 MG PO (08:16)
[2024-01-18] MEDS: PROTONIX 20 MG PO (08:16)
[2024-01-18] MEDS: APRESOLINE 50 MG PO ×3 (08:16→21:09)
[2024-01-18] MEDS: LAC HYDRIN, AM LACTIN LOTION 1 APPLIC TOPICAL ×2 (08:16→21:09)
[2024-01-18] MEDS: ANTIFUNGAL CLEAR 1 APPLIC TOPICAL ×2 (08:17→21:11)
[2024-01-18] MEDS: ELIQUIS 5 MG PO ×2 (08:17→21:07)
[2024-01-18 08:34] LABS: Magnesium 2.1 mg/dl (1.6-2.3)
[2024-01-18] MEDS: KCL 270 MEQ IV (08:46)
[2024-01-18] MEDS: LIPITOR 40 MG PO (17:10)
--- NOTE | 2024-01-18 17:45 | PTCARENOTE ---
attempted to stand patient and pivot to chair using sit to stand lift. unable to tolerate weight bearing for more than a few seconds. lifted back to bed. refusing charan lift. pox dropping to 83% on 4.5 liters with this exertion. oxygen increased to
6L nasal canula. continuing to monitor
[2024-01-18] MEDS: KCL 20 MEQ PO (21:08)
[2024-01-18] MEDS: DESENEX/MITRAZOL/ZEASORB 1 APPLIC TOPICAL (21:10)
[2024-01-19] VITALS (14 sets, daily range): BP systolic 105–160; BP diastolic 34–88; BMI 47.6
--- NOTE | 2024-01-19 02:27 | PTCARENOTE ---
PT tolerating BiPAP until 0050. Pt put back on 6L midflow SPO2 97%. Pt had no complaints of pain at this time. Vitals assessment and care as documented.
[2024-01-19] MEDS: SYNTHROID 112 MCG PO (04:22)
[2024-01-19 04:58] LABS: Hematocrit 30.1 % (37.0-47.0); Hemoglobin 9.2 g/dL (12.0-16.0); Mean Corp Hgb Conc. 30.6 g/dL (33.0-37.0); Mean Corpuscular Hgb 31.7 pg (27.0-31.0); Mean Corpuscular Volume 103.8 fL (81.0-99.0); Mean Platelet Volume 9.5 fL (7.4-10.4); Platelet Count 219 10^3/uL (130-400); Red Cell Dist. Width 16.8 % (11.5-14.5); White Blood Cell Count 7.7 10^3/uL (4.8-10.8)
[2024-01-19 05:35] LABS: Blood Urea Nitrogen 30 mg/dl (7-17); Calcium 9.4 mg/dl (8.4-10.2); Carbon Dioxide 38 mmol/L (22-30); Chloride 95 mmol/L (98-107); Estimated Creatinine Clearance 50 ml/min; Glucose 149 mg/dl (70-99); Potassium 4.5 mmol/L (3.5-5.1); Sodium 137 mmol/L (135-145); eGFR 55.21
[2024-01-19] MEDS: DUONEB 3 ML INH ×4 (07:37→19:35)
[2024-01-19] MEDS: FLOVENT 44 MCG INHALER 2 PUFF INH ×2 (07:37→19:35)
--- NOTE | 2024-01-19 09:00 | W.PN.HOSP.TC ---
Today's Communication/Plan
-
Continue diuresis
Assessment / Plan
Assessment / Plan
Echo 05/21/23: Study was discontinued as patient refused to let technologist continue.Normal left ventricular chamber size with concentric remodeling and hyperdynamic left ventricular systolic function. No obvious wall motion abnormalities. Left
ventricular ejection fraction is 70-75% by visual estimate. Diastolic function indeterminate. Normal right ventricular size and function.Mild left atrial dilation.Moderate right atrial dilation.Dense posterior mitral annular
calcification.Trileaflet, sclerotic aortic valve with calcification of the base of the right coronary leaflet but adequate aortic leaflet excursion without stenosis.Trivial pericardial effusion.The IVC is not visualized.RV/RA pressure gradient is 41
mmHg, implying at least mild pulmonary
hypertension.
CXR: There is patchy airspace disease bilaterally and diffusely consistent with diffuse pneumonia.
Cardiovascular system [id number]
Chest decreased breath sounds at bases-few rales bilateral
Abdomen soft and nontender
Lower extremity mild edema
Assessment/Plan
CHF, diuresing. Should be hospice but isn�t. ( No change , ion IV Lasix, Not very complaint with CPAP)
Acute hypoxemic and hypercapnic respiratory failure due to acute on chronic HFpEF:
-Chest x-ray with pulmonary edema, proBNP 1030 in the setting of pulmonary restriction due to morbid obesity due to excess calories and underlying COPD (which is not in acute exacerbation)
-Cont Lasix 80mg IV BID
-Add Metolazone
-Was on BIPAP 15/5 with 10L O2 on admission, now weaned to 8L midflow O2. Wean for pulse ox 91%.
-Pulm/cards following
-On Farxiga
Hypokalemia-replace
Other problems:
Permanent Atrial fibrillation with RVR: Cont Eliquis. No BB with COPD.
PSVT
h/o Endometrial cancer
COPD: cont Duonebs/Azithro/Arnuity Ellipta
Essential hypertension: cont candesartan/clonidine/Cardizem/Hydralazine
Hyperlipidemia: cont statin
Hypothyroidism: cont Levoxyl
ARIANA
Interstitial lung disease
Morbid obesity due to excess calories
Chronic macrocytic anemia
Ogrnfrciek-ijaro-wwzyheeomfwrb for the past 6 months per
DNR/I - confirmed with the pt's in the ER
DVT prophylaxis-Eliquis
Discussed with at bedside
Speech Therapy Comments: '....Ok to continue current diet. Infrequent dry non-productive cough noted in between/after PO. Suspect unrelated as video swallow study 04/26/2022 oral/pharyngeal swallow was WFL, pt w/ other reasons which could cause
cough (COPD, CHF, ILD) and pt/family deny dysphagia. However, if concerned for new aspiration please reconsult via video swallow study.'
Anticipated Discharge: > 48 hours
Subjective/Interval History
-
Date of Service: January 19, 2024
Patient was seen and examined. She denied any chest pain or shortness of breath.
Objective Data
-
Labs:
Laboratory Results
01/19/24
04:49
WBC 7.7
Hgb 9.2 L
Hct 30.1 L
Plt Count 219
Sodium 137
Potassium 4.5 D
Chloride 95 L
Carbon Dioxide 38 H
BUN 30 H
Creatinine 1.0
Glucose 149 H
Calcium 9.4
Vital Signs:
Vital Signs
Temp Pulse Resp BP Pulse Ox
98.2 F 94 18 149/68 96
01/19/24 03:49 01/19/24 07:41 01/19/24 07:41 01/19/24 06:00 01/19/24 07:41
I&O
01/18/24 01/19/24 01/20/24
06:59 06:59 06:59
Intake Total 900 / 900
Output Total 900 / 900 1450 / 1450
Balance -900 / -900 -550 / -550
--- NOTE | 2024-01-19 09:01 | W.PN.CD ---
Today's Communication / Plan
-
add metolazone to lasix in the pm and assess response
Impression / Plan
-
Acute hypoxic and hypercapneic respiratory failure, suspect multifactorial
- remains on oxygen
- PNA and HFpEF and being treated
-COPD and ILD chronically
- monitor reanl function.
HFpEF, acute on chronic
-She has diuresed, goal weight ~250
-weight slightly up today and she is very bronchospastic
-will add a dose of metolazone prior to pm lasix on 01/19/24
-Primary cardiology would like to increase home lasix to 80 mg bid on d/x
-continue 80 IV lasix with intensive monitoring of labs and bp
-negative on I/Os
-Cont Farxiga 10 mg for HFpEF
-Trend daily weight, I/Os, and BMP with diuresis
Permanent Atrial fibrillation with RVR => rate improved with therapy.
-Dilt 180 for better HR control
-Avoid beta mike given underlying lung disease
-Oral Anticoagulation: Eliquis 5mg BID
-[id number]: score at least 5 (Heart failure, HTN, age 75 or more, female gender)
PNA:
-leukocytosis
-procal pending
-empiric abx
HTN, urgency:
-recent hydralazine to 50 TID
ILD/ARIANA with oxygen dependence, baseline 3LPM
Thrombocytopenia, on Promacta
ARIANA with chronic hypercapnia
Chronic lymphedema
Obesity, BMI 48
Subjective:
sleeping but woke up, no complaint but didn't really seem interested in participating in our conversation
TTE 05/21/23:
Study was discontinued as patient refused to let technologist continue.
�Normal left ventricular chamber size with concentric remodeling and
�hyperdynamic left ventricular systolic function. No obvious wall motion
�abnormalities.� Left ventricular ejection fraction is 70-75% by visual
�estimate.� Diastolic function indeterminate.
�Normal right ventricular size and function.
�Mild left atrial dilation.
�Moderate right atrial dilation.
�Dense posterior mitral annular calcification.
�Trileaflet, sclerotic aortic valve with calcification of the base of the right
�coronary leaflet but adequate aortic leaflet excursion without stenosis.
�Trivial pericardial effusion.
�The IVC is not visualized.
�RV/RA pressure gradient is 41 mmHg, implying at least mild pulmonary
�hypertension.
Physical Exam
Vital Signs/Labs
Vital Signs
Temp Pulse Resp BP Pulse Ox
98.2 F 94 18 149/68 96
01/19/24 03:49 01/19/24 07:41 01/19/24 07:41 01/19/24 06:00 01/19/24 07:41
01/18/24 01/19/24 01/20/24
06:59 06:59 06:59
Actual Weight 117 kg 118 kg
01/19/24 04:49
01/19/24 04:49
Magnesium 2.1 mg/dl (1.6-2.3) 01/18/24 06:37
01/13/24 01/13/24
09:19 09:50
Vey-U-Dzbxmjddhgy Pept Cancelled 1030
Physical Exam
Constitutional: No acute distress
Cardiovascular: Systolic murmur absent, Diastolic murmur absent, Rhythm/rate is irregular and Pedal edema present (2+ bilaterally)
Respiratory: Respiratory effort normal and Wheeze Present (diffuse expiratory wheeze)
Neuro/Psych: AO x 3
Data Reviewed
-
Date of Service: January 19, 2024
Medical Decision Making: Review of Case with other Provider (Dr Capps)
EKG: Other (tele afib with rate control)
[2024-01-19] MEDS: APRESOLINE 50 MG PO ×3 (10:01→21:24)
[2024-01-19] MEDS: ATACAND 4 MG PO (10:04)
[2024-01-19] MEDS: MYRBETRIQ EXTENDED RELEASE 50 MG PO (10:05)
[2024-01-19] MEDS: FARXIGA 10 MG PO (10:05)
[2024-01-19] MEDS: CARDIZEM CD 180 MG PO (10:05)
[2024-01-19] MEDS: PROTONIX 20 MG PO (10:05)
[2024-01-19] MEDS: VITAMIN C 500 MG PO (10:05)
[2024-01-19] MEDS: COLACE 200 MG PO (10:06)
[2024-01-19] MEDS: CATAPRES 0.1 MG PO ×2 (10:06→19:41)
[2024-01-19] MEDS: FEOSOL 325 MG PO (10:07)
[2024-01-19] MEDS: KCL 20 MEQ PO ×2 (10:07→19:41)
[2024-01-19] MEDS: ELIQUIS 5 MG PO ×2 (10:07→19:40)
[2024-01-19] MEDS: TYLENOL 1000 MG PO ×2 (10:08→19:40)
[2024-01-19] MEDS: LASIX 80 MG IV ×2 (10:08→16:40)
[2024-01-19] MEDS: DESENEX/MITRAZOL/ZEASORB 1 APPLIC TOPICAL ×2 (10:09→19:44)
[2024-01-19] MEDS: LAC HYDRIN, AM LACTIN LOTION 1 APPLIC TOPICAL ×2 (10:09→19:44)
[2024-01-19] MEDS: ZITHROMAX 250 MG PO (10:11)
[2024-01-19] MEDS: ANTIFUNGAL CLEAR 1 APPLIC TOPICAL ×2 (10:12→19:46)
--- NOTE | 2024-01-19 13:33 | PTOTSP ---
Dysphagia Evaluation
Patient has acute on chronic risk factors for dysphagia (i.e., acute hypoxemic and hypercapnic respiratory failure due to acute on chronic HFpEF, COPD, ILD). Oral/pharyngeal swallow WFL based on clinical bedside swallow evaluation. Intermittent
dry cough noted between/after PO trials. Cannot rule out unrelated cough vs aspiration bedside but lower suspicion for aspiration at this time this given history of video swallow study 04/26/2022 where oral/pharyngeal swallowing was within
functional limits.
Recommend:
1. Regular, Thin Liquids
2. Medications - as best tolerated
3. Strategies: Supervision/assistance, small single sips/bites, slow rate with breaks for breathing, hold oral PO if SpO2 <90% or RR <30, remain upright for at least 30 minutes after PO intake as a reflux precaution
4. No further dysphagia therapy warranted. If concerned for component of aspiration consider video swallow study if aligned with patient/family goals of care.
--- NOTE | 2024-01-19 13:42 | PTOTSP ---
Dysphagia Evaluation
Patient has acute on chronic risk factors for dysphagia (i.e., acute respiratory failure due to acute on chronic HFpEF, COPD, ILD) and is at risk for complications if aspiration were to occur (i.e., non-ambulatory, comorbidities).
Patient/family deny dysphagia/aspiration. Intermittent dry cough noted between/after PO trials. Cannot rule out unrelated cough (from CHF, COPD, ILD) vs aspiration bedside. However, patient with history of video swallow study 04/26/2022 where
oral/pharyngeal swallowing was within functional limits which lower suspicion for aspiration at this time.
Recommend:
1. Regular, Thin Liquids
2. Medications - as best tolerated
3. Strategies: Supervision/assistance, small single sips/bites, slow rate with breaks for breathing, hold oral PO if SpO2 <90% or RR <30, remain upright for at least 30 minutes after PO intake as a reflux precaution
4. Dysphagia therapy follow up to assess tolerance of diet (given fluctuating respiratory needs per chart review) and for continued patient/family education.
5. If concerned for component of aspiration consider video swallow study if aligned with patient/family goals of care - as aspiration cannot be definitively ruled out bedside.
[2024-01-19] MEDS: LIPITOR 40 MG PO (16:40)
[2024-01-19] MEDS: ZAROXOLYN 2.5 MG PO (16:40)
--- NOTE | 2024-01-19 22:23 | PTCARENOTE ---
Pt maintaining pOx 96% on 4L O2. Pt is oriented and refuses to wear BiPAP HS. Pt states 'I hate that thing'. RT and this RN encouraged use and explained rationale for mask, pt continues to refuse. Call xie within pt reach. This RN will continue to
monitor status throughout shift.
[2024-01-20] VITALS (15 sets, daily range): BP systolic 110–235; BP diastolic 58–127; PULSE 2–86; BMI 47.7
[2024-01-20] MEDS: NON-FORMULARY ITEM 1 MG PO (05:45)
[2024-01-20] MEDS: SYNTHROID 112 MCG PO (05:46)
[2024-01-20 06:33] LABS: Blood Urea Nitrogen 30 mg/dl (7-17); Calcium 9.4 mg/dl (8.4-10.2); Carbon Dioxide 40 mmol/L (22-30); Chloride 95 mmol/L (98-107); Estimated Creatinine Clearance 50 ml/min; Glucose 131 mg/dl (70-99); Potassium 4.2 mmol/L (3.5-5.1); Sodium 139 mmol/L (135-145); eGFR 55.21
[2024-01-20] MEDS: DUONEB 3 ML INH ×4 (07:37→19:54)
[2024-01-20] MEDS: FLOVENT 44 MCG INHALER 2 PUFF INH ×2 (07:37→19:54)
--- NOTE | 2024-01-20 09:10 | W.PN.HOSP.TC ---
Today's Communication/Plan
-
Continue IV diuresis
Appreciate cardiology
Assessment / Plan
Assessment / Plan
Echo 05/21/23: Study was discontinued as patient refused to let technologist continue.Normal left ventricular chamber size with concentric remodeling and hyperdynamic left ventricular systolic function. No obvious wall motion abnormalities. Left
ventricular ejection fraction is 70-75% by visual estimate. Diastolic function indeterminate. Normal right ventricular size and function.Mild left atrial dilation.Moderate right atrial dilation.Dense posterior mitral annular
calcification.Trileaflet, sclerotic aortic valve with calcification of the base of the right coronary leaflet but adequate aortic leaflet excursion without stenosis.Trivial pericardial effusion.The IVC is not visualized.RV/RA pressure gradient is 41
mmHg, implying at least mild pulmonary
hypertension.
CXR: There is patchy airspace disease bilaterally and diffusely consistent with diffuse pneumonia.
Physical Exam
Cardiovascular system [id number]
Chest decreased breath sounds at bases-few rales bilateral
Abdomen soft and nontender
Lower extremity mild edema
Assessment/Plan
Acute hypoxemic and hypercapnic respiratory failure due to acute on chronic HFpEF:
-Chest x-ray with pulmonary edema, proBNP 1030 in the setting of pulmonary restriction due to morbid obesity due to excess calories and underlying COPD (which is not in acute exacerbation)
-Cont Lasix 80mg IV BID
-Add Metolazone 1x dose on 01/19/24 but weight did not go down significantly and oxygen requirement went up
-Diuresis as per cardiologu
-Was on BIPAP 15/5 with 10L O2 on admission, now at 6L midflow O2 (from 4L). Wean for pulse ox 91%.
-Pulm/cards following
-On Farxiga
Hypokalemia
-Resolved
-Continue to monitor BMP
-Replace
Other problems:
Permanent Atrial fibrillation with RVR: Cont Eliquis. No BB with COPD.
PSVT
h/o Endometrial cancer
COPD: cont Duonebs/Azithro/Arnuity Ellipta
Essential hypertension: cont candesartan/clonidine/Cardizem/Hydralazine
Hyperlipidemia: cont statin
Hypothyroidism: cont Levoxyl
ARIANA
Interstitial lung disease
Morbid obesity due to excess calories
Chronic macrocytic anemia
Acmvowwduu-lznvz-lhvcjwvjahpud for the past 6 months per
DNR/I - confirmed with the pt's in the ER
DVT prophylaxis-Eliquis
Discussed with at bedside
Speech Therapy Comments: '....Ok to continue current diet. Infrequent dry non-productive cough noted in between/after PO. Suspect unrelated as video swallow study 04/26/2022 oral/pharyngeal swallow was WFL, pt w/ other reasons which could cause
cough (COPD, CHF, ILD) and pt/family deny dysphagia. However, if concerned for new aspiration please reconsult via video swallow study.'
Anticipated Discharge: > 48 hours
Subjective/Interval History
-
Date of Service: January 20, 2024
Patient was seen and examined. She reported no new symptoms, but per reports patient refused BiPAP overnight.
Objective Data
-
Labs:
Laboratory Results
01/20/24
06:03
Sodium 139
Potassium 4.2
Chloride 95 L
Carbon Dioxide 40 H
BUN 30 H
Creatinine 1.0
Glucose 131 H
Calcium 9.4
Vital Signs:
Vital Signs
Temp Pulse Resp BP Pulse Ox
97.6 F 89 17 110/90 98
01/20/24 04:13 01/20/24 07:40 01/20/24 07:40 01/20/24 06:05 01/20/24 07:59
I&O
01/19/24 01/20/24 01/21/24
06:59 06:59 06:59
Intake Total 900 / 900
Output Total 1450 / 1450 800 / 800
Balance -550 / -550 -800 / -800
[2024-01-20] MEDS: ANTIFUNGAL CLEAR 1 APPLIC TOPICAL ×2 (10:17→20:09)
[2024-01-20] MEDS: CARDIZEM CD 180 MG PO (10:18)
[2024-01-20] MEDS: COLACE 200 MG PO (10:18)
[2024-01-20] MEDS: ELIQUIS 5 MG PO ×2 (10:18→20:08)
[2024-01-20] MEDS: KCL 20 MEQ PO ×2 (10:19→20:08)
[2024-01-20] MEDS: FARXIGA 10 MG PO (10:19)
[2024-01-20] MEDS: PROTONIX 20 MG PO (10:20)
[2024-01-20] MEDS: MYRBETRIQ EXTENDED RELEASE 50 MG PO (10:20)
[2024-01-20] MEDS: APRESOLINE 50 MG PO ×3 (10:20→21:23)
[2024-01-20] MEDS: ATACAND 4 MG PO (10:20)
[2024-01-20] MEDS: CATAPRES 0.1 MG PO ×2 (10:20→20:08)
[2024-01-20] MEDS: TYLENOL 1000 MG PO ×2 (10:21→20:08)
[2024-01-20] MEDS: LASIX 80 MG IV (10:21)
[2024-01-20] MEDS: MIRALAX 17 GRAMS PO (10:21)
[2024-01-20] MEDS: LAC HYDRIN, AM LACTIN LOTION 1 APPLIC TOPICAL ×2 (10:22→20:08)
[2024-01-20] MEDS: FLUSH (NSS) 2 FLUSH IV (10:23)
--- NOTE | 2024-01-20 12:12 | W.PN.CD ---
Today's Communication / Plan
-
increase lasix to 160 IV for goal 1.0-1.5 L negative, augment with metolazone, NPO@MN for possible RHC if no improvement tomorrow and unclear volume status
Impression / Plan
-
Acute hypoxic and hypercapnic respiratory failure, suspect multifactorial
- COPD and ILD chronically
- treating currently for PNA and ADHF
- mildly net negative on lasix 80x2 + metolazone though no change in weight
- remains on oxygen, no subjective improvement compared to 01/18
- not change in mild pulmonary edema between 01/15 and 01/18
- challenging volume exam
- plan to increase diuretic to 160 mg IV lasix + metolazone for goal negative 1-1.5 L
- if not responsive to lasix, would recommend considering RHC as exam is challenging and unclear what her volumes status is currently --> NPO@MN and will assess in AM
- monitor renal function
HFpEF, acute on chronic
-She has diuresed, goal weight ~250
-weight slightly up today despite addition of metolazone
-Primary cardiology would like to increase home lasix to 80 mg bid on d/x
-increase to 160 IV lasix with intensive monitoring of labs and bp
-negative on I/Os
-Cont Farxiga 10 mg for HFpEF
-Trend daily weight, I/Os, and BMP with diuresis
Permanent Atrial fibrillation with RVR => rate improved with therapy.
-Dilt 180 for better HR control
-Avoid beta mike given underlying lung disease
-Oral Anticoagulation: Eliquis 5mg BID
-[id number]: score at least 5 (Heart failure, HTN, age 75 or more, female gender)
PNA:
-leukocytosis
-procal pending
-empiric abx
HTN, urgency:
-recent hydralazine to 50 TID
ILD/ARIANA with oxygen dependence, baseline 3LPM
Thrombocytopenia, on Promacta
ARIANA with chronic hypercapnia
Chronic lymphedema
Obesity, BMI 48
Subjective:
awake, conversive, notes no improvement in subjective dyspnea
TTE 05/21/23:
Study was discontinued as patient refused to let technologist continue.
�Normal left ventricular chamber size with concentric remodeling and
�hyperdynamic left ventricular systolic function. No obvious wall motion
�abnormalities.� Left ventricular ejection fraction is 70-75% by visual
�estimate.� Diastolic function indeterminate.
�Normal right ventricular size and function.
�Mild left atrial dilation.
�Moderate right atrial dilation.
�Dense posterior mitral annular calcification.
�Trileaflet, sclerotic aortic valve with calcification of the base of the right
�coronary leaflet but adequate aortic leaflet excursion without stenosis.
�Trivial pericardial effusion.
�The IVC is not visualized.
�RV/RA pressure gradient is 41 mmHg, implying at least mild pulmonary
�hypertension.
Physical Exam
Vital Signs/Labs
Vital Signs
Temp Pulse Resp BP Pulse Ox
36.8 C 90 15 161/80 91
01/20/24 07:47 01/20/24 11:21 01/20/24 11:21 01/20/24 10:09 01/20/24 11:21
01/19/24 01/20/24 01/21/24
06:59 06:59 06:59
Actual Weight 118 kg 118.2 kg
01/19/24 04:49
01/20/24 06:03
Magnesium 2.1 mg/dl (1.6-2.3) 01/18/24 06:37
01/13/24 01/13/24
09:19 09:50
Pvx-B-Tadofcoiuwr Pept Cancelled 1030
Physical Exam
Constitutional: No acute distress and Comfortable
Cardiovascular: JVD pressure is normal (not well seen), Systolic murmur absent, Diastolic murmur absent and Rhythm/rate is irregular
Respiratory: Wheeze Present
Neuro/Psych: Alert and Oriented
Data Reviewed
-
Date of Service: January 20, 2024
Medical Decision Making: Reviewed Test Results
Echo: Tracing Personally Visualized and interpreted
X-Ray/CT/US/MRI/NUC/PET: Image Personally Visualized and interpreted
Labs: Labs Reviewed by me
[2024-01-20] MEDS: ZAROXOLYN 2.5 MG PO (14:00)
[2024-01-20] MEDS: OCEAN, SALINE MIST 1 SPRAYS NASAL (14:01)
[2024-01-20] MEDS: LASIX 160 MG IV (16:50)
[2024-01-20] MEDS: FLUSH (NSS) 1 FLUSH IV (16:51)
--- NOTE | 2024-01-20 16:58 | CM ---
Patient from [facility] with Dx Acute hypoxemic and hypercapnic respiratory failure, HF. Plan possible RHC tomorrow. O2 5L midflow. BiPAP. Receiving IV Lasix. Seen by wound care nurse. PT; No skilled PT needed.
[facility]: The for report [phone], fax [phone].
Plan contact patient/ prior to d/c.
Plan return to [facility] when medically ready.
[2024-01-20] MEDS: LIPITOR 40 MG PO (18:32)
[2024-01-21] VITALS (16 sets, daily range): BP systolic 93–150; BP diastolic 35–85; PULSE 2; BMI 46.9
[2024-01-21] MEDS: SYNTHROID 112 MCG PO (04:53)
[2024-01-21 05:38] LABS: Blood Urea Nitrogen 39 mg/dl (7-17); Calcium 9.6 mg/dl (8.4-10.2); Chloride 92 mmol/L (98-107); Estimated Creatinine Clearance 50 ml/min; Glucose 137 mg/dl (70-99); Potassium 4.5 mmol/L (3.5-5.1); Sodium 137 mmol/L (135-145); eGFR 55.21
--- NOTE | 2024-01-21 05:42 | PTCARENOTE ---
Assume care from AM RN. AAOx2/3 forgetful and anxious at times. ATMAUTLUAK. Afib w/ PVC's in the monitor. Lung sounds are diminished and fine crackles at the bases,SaO2 94% 6L. Pt wore the BIPAP for a minimum 5 hrs. Abd is round and obese. Call xie within
reach. no major complains and will cont with tx plan.
[2024-01-21 05:52] LABS: Carbon Dioxide 38 mmol/L (22-30)
[2024-01-21] MEDS: FLOVENT 44 MCG INHALER 2 PUFF INH ×2 (08:24→19:42)
[2024-01-21] MEDS: DUONEB 3 ML INH ×4 (08:24→19:42)
--- NOTE | 2024-01-21 08:33 | W.PN.CD ---
Today's Communication / Plan
-
- Hold on RHC since patient appeared to have response to diuretic on 01/20/2024 - 01/21/2024 with diuresis, reduction in weight and stable renal function. Will continue to monitor response to diuretic and if there are issues with volume status would
reconsider right heart cath. In addition I reviewed issues with her primary motion picture set up worker ( Dr Matos) who will reassess her and see how her respiratory status compares to her baseline.
Impression / Plan
-
Acute hypoxic and hypercapnic respiratory failure, suspect multifactorial
- COPD and ILD chronically
- treating currently for PNA and ADHF
- mildly net negative on lasix 80x2 + metolazone though no change in weight
- remains on oxygen, no subjective improvement compared to 01/18
- not change in mild pulmonary edema between 01/15 and 01/18
- challenging volume exam
- plan outlined by Dr Morris yo to increase diuretic to 160 mg IV lasix + metolazone for goal negative 1-1.5 L. -1855 over 24 hour and weight down to 116 kg with stable renal function
- Hold on RHC since patient appeared to have response to diuretic on 01/20/2024 - 01/21/2024 with diuresis, reduction in weight and stable renal function. Will continue to monitor response to diuretic and if there are issues with volume status would
reconsider right heart cath. In addition I reviewed issues with her primary motion picture set up worker who will reassess her .
- monitor renal function
HFpEF, acute on chronic
-She has diuresed, goal weight ~250
-weight slightly up today despite addition of metolazone
-Primary cardiology would like to increase home lasix to 80 mg bid on d/x
- diuretic issues as above
-Cont Farxiga 10 mg for HFpEF
-Trend daily weight, I/Os, and BMP with diuresis
Permanent Atrial fibrillation with RVR => rate improved with therapy.
-Dilt 180 for better HR control
-Avoid beta mike given underlying lung disease
-Oral Anticoagulation: Eliquis 5mg BID
-[id number]: score at least 5 (Heart failure, HTN, age 75 or more, female gender)
PNA:
-ltx per primary team
HTN, urgency:
-recent hydralazine to 50 TID
ILD/ARIANA with oxygen dependence, baseline 3LPM
Thrombocytopenia, on Promacta
ARIANA with chronic hypercapnia
Chronic lymphedema
Obesity, BMI 48
Subjective:
awake, conversive, notes no improvement in subjective dyspnea
TTE 05/21/23:
Study was discontinued as patient refused to let technologist continue.
�Normal left ventricular chamber size with concentric remodeling and
�hyperdynamic left ventricular systolic function. No obvious wall motion
�abnormalities.� Left ventricular ejection fraction is 70-75% by visual
�estimate.� Diastolic function indeterminate.
�Normal right ventricular size and function.
�Mild left atrial dilation.
�Moderate right atrial dilation.
�Dense posterior mitral annular calcification.
�Trileaflet, sclerotic aortic valve with calcification of the base of the right
�coronary leaflet but adequate aortic leaflet excursion without stenosis.
�Trivial pericardial effusion.
�The IVC is not visualized.
�RV/RA pressure gradient is 41 mmHg, implying at least mild pulmonary
�hypertension.
Physical Exam
Vital Signs/Labs
Vital Signs
Temp Pulse Resp BP Pulse Ox
97.8 F 85 22 144/68 98
01/21/24 08:17 01/21/24 08:28 01/21/24 08:28 01/21/24 06:00 01/21/24 08:28
01/20/24 01/21/24 01/22/24
06:59 06:59 06:59
Actual Weight 118.2 kg 116.2 kg
01/19/24 04:49
01/21/24 04:48
Magnesium 2.1 mg/dl (1.6-2.3) 01/18/24 06:37
01/13/24 01/13/24
09:19 09:50
Vet-K-Ypjbatmetzv Pept Cancelled 1030
Physical Exam
Constitutional: No acute distress and Other (Very hard of hearing)
Cardiovascular: Rhythm/rate is irregular
Respiratory: Wheeze Absent and Rhonchi Absent
GI: Soft
Neuro/Psych: Alert
Other: Other (Obese)
Data Reviewed
-
Date of Service: January 21, 2024
Medical Decision Making: Reviewed Test Results
Echo: Report Reviewed by me
Medical Tests (PFT, Pathology etc): Report Reviewed by me
Labs: Labs Reviewed by me
[2024-01-21] MEDS: COLACE 200 MG PO (09:03)
[2024-01-21] MEDS: ATACAND 4 MG PO (09:04)
[2024-01-21] MEDS: FEOSOL 325 MG PO (09:04)
[2024-01-21] MEDS: CARDIZEM CD 180 MG PO (09:05)
[2024-01-21] MEDS: PROTONIX 20 MG PO (09:05)
[2024-01-21] MEDS: TYLENOL 1000 MG PO ×2 (09:06→20:03)
[2024-01-21] MEDS: KCL 20 MEQ PO ×2 (09:06→20:03)
[2024-01-21] MEDS: CATAPRES 0.1 MG PO ×2 (09:06→20:02)
[2024-01-21] MEDS: ELIQUIS 5 MG PO ×2 (09:06→20:02)
[2024-01-21] MEDS: MYRBETRIQ EXTENDED RELEASE 50 MG PO (09:07)
[2024-01-21] MEDS: FARXIGA PO (09:08)
[2024-01-21] MEDS: APRESOLINE 50 MG PO ×2 (09:08→21:39)
[2024-01-21] MEDS: DESENEX/MITRAZOL/ZEASORB 1 APPLIC TOPICAL ×2 (09:09→20:03)
[2024-01-21] MEDS: LASIX 16 MG IV ×2 (09:12→17:49)
[2024-01-21] MEDS: LAC HYDRIN, AM LACTIN LOTION 1 APPLIC TOPICAL ×2 (09:14→20:02)
[2024-01-21] MEDS: ANTIFUNGAL CLEAR 1 APPLIC TOPICAL ×2 (09:15→20:04)
[2024-01-21] MEDS: VITAMIN C 500 MG PO (09:21)
[2024-01-21] MEDS: ZITHROMAX 250 MG PO (09:21)
--- NOTE | 2024-01-21 09:27 | W.PN.PUL3 ---
Today's Communication / Plan
-
Wean oxygen down to 3 L, presently 91 to 93%
Continue nocturnal BiPAP. Would not be surprising if she desaturates on BiPAP
ABG in a.m.
Do not feel right heart cath is needed at this time, she is down 11 kg and is close to her baseline
Assessment
-
83-year-old female with complex medical history, history of heart failure, COPD, sleep apnea with obesity hypoventilation on chronic oxygen therapy, CPAP therapy [facility] resident presents with hypoxia, respiratory distress found to have
bilateral infiltrates per chest x-ray. We are asked to comment on pulmonary process
Acute hypoxic respiratory insufficiency
70% saturation requiring 6 L of oxygen
Bilateral pulmonary infiltrates
Suspected infectious pneumonitis, less likely heart failure
Leukocytosis
Chronic hypercapnia, compensated
Baseline pCO2 78
Hyperglycemia
Conditions present prior to admission
History of atrial fibrillation
History of heart failure
Normal biventricular function
Mild pulmonary hypertension, PA pressure 41
Conditions present prior admission:
Hypertension/hyperlipidemia
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
ILD, mild patchy bronchiolitis on prior imaging
Former smoker, [id number]-qyax quit
Obstructive sleep apnea noncompliant with CPAP
Obesity hypoventilation syndrome
Chronic hypercapnic respiratory failure
Chronic lymphedema of the lower extremities
Chronic wound issues chronic GERD
With esophagitis
Chronic anemia
Chronic thrombocytopenia, on promacta
History of ITP
Morbid Obesity BMI 50
Hypothyroidism
History of uterine cancer, hysterectomy 2008
NHR
DNR
Plan recommendations
At this time, patient appears to be comfortable. Tolerated BiPAP overnight 15/5, 5 L
96% on 4 L yesterday p.m.
98% on 6 L this morning
Decreased to 3 L which is her baseline at [facility], presently 91 to 93%. Patient without complaints
Weight is down 11 kg
Chest x-ray 01/18 significantly improved compared to 01/12
Procalcitonin negative. Antibiotics have been discontinued by primary service
Hypertension noted
Moving forward
I do think she is close to her baseline
She normally uses 2.5 to 3 L at the [facility]
Would not be surprised if she desaturates on BiPAP given her significant sleep apnea
This is okay. Continue to wean oxygen during the day
Continue with diuresis per cardiology. Not sure a right heart cath is helpful at this time
She has chronic hypercapnic respiratory failure on CPAP. According to is noncompliant. She also has severe obstructive lung disease, maintained on outpatient nebulizer therapy
She has history of pulm hypertension
She is sedentary, with lymphedema, chronic wound issues right lower extremity
Recent echocardiogram with normal biventricular function
Will repeat ABG in the a.m.
DNR status noted
Chronic [facility] resident
Patient received 2 days of Zosyn therapy, cultures as able
Hold azithromycin Friday/Friday/Friday during hospital stay. Can resume at time of discharge
Remains off antibiotics
Chest x-ray overall improved more consistent with heart failure
Given improvement in oxygen requirement, chest x-ray and symptoms, do not feel additional testing is necessary at this time
Patient does have adequate cough
Encourage airway clearance
Follow cultures as able
ABG reviewed. Chronic compensated hypercapnia noted
Patient is supposed to be on BiPAP 05/16. Tolerated 15/5 overnight
admits that patient is noncompliant with this at the [facility]
This should continue as outpatient
Repeat ABG in a.m.
There is no indication for steroids at this time. Will follow
The patient does have chronic hypoxia, on home oxygen in the past
Presently appears to be comfortable with no use of accessory muscles
DVT prophylaxis: Patient on Eliquis for atrial fibrillation
GI prophylaxis: Remains on pantoprazole
DNR status noted
Disposition efforts
Will continue to follow at request of cardiology
Diagnostic Data:
CXR 05-23-23: No acute cardiopulmonary process.
CXR 05-20-23 c/w August 2022: portable film underpenetrated but c/w increased pulm vasc and parenchymal congestion
SHEFALI doppler 05-20-23 IMPRESSION: Limited study (patient could not tolerate compression) demonstrating no evidence of deep venous thrombosis
CXR 04/24- IMPRESSION: Possible early or mild pneumonitis in the lateral right midlung zone.
CT Scan: CHEST 04/24/22- Nonspecific pulmonary parenchymal findings, as described. Consider possible volume overload or congestive heart failure. Small regions of nonspecific bronchiolitis are suspected. Minor scarring versus atelectasis in the
posterior right lung base. Otherwise, no focal dense consolidation.
Echocardiogram 10/30/20 reviewed-EF 75%, mild mitral regurgitation, PA systolic estimated 52 the change from 09/03/18
Note: Renal ultrasound 10/31/20-unremarkable
PFT's: 02/08/20- FVC 1.53L 71%, FEV1 1.04L 65%, ratio 68 (moderate obstruction); TLC 2.48L 56%, DLCO 40%
Subjective Data
-
Date of Service:
Date of Service: January 21, 2024
Subjective:
Patient feels well. She denies shortness of breath, chest pain, nausea. Tolerating BiPAP overnight for 5 hours. Negative fluid status noted
For some reason, she is on 5 to 6 L. She was 96% on 4 L yesterday p.m. at bedside. Patient in good spirits
Objective Data
Data Reviewed
Vital Signs / I&O / Oxygen:
Vital Signs
Temp Pulse Resp BP Pulse Ox
97.8 F 85 22 144/68 98
01/21/24 08:17 01/21/24 08:28 01/21/24 08:28 01/21/24 06:00 01/21/24 08:28
Intake and Output
01/20/24 01/21/24 01/22/24
06:59 06:59 06:59
Intake Total 1045 / 1045
Output Total 800 / 800 2900 / 2900
Balance -800 / -800 -1855 / -1855
SaO2 98
Nasal Cannula flow liters per 6
minute
Physical Exam
General: Comfortable
HEENT: Normocephalic and Other (Large neck)
Cardiovascular: S1-S2, Regular Rhythm, Murmur (n), Rub (n) and Peripheral Edema (Chronic lymphedema, wrapping in place)
Respiratory: Wheeze (n), Crackles (Mild bibasilar), Rhonchi (n), Non-Labored Respirations and Other (Decreased breath sounds)
GI: Soft, Non Distended (Morbidly obese) and Non Tender
Neurology: Awake, Alert and No Motor Deficits (Moves all extremities, conversant)
Skin: Warm, Cyanosis (n) and Rash (n)
Labs/Micro/Reports
Lab Data
01/19/24 04:49
01/21/24 04:48
--- NOTE | 2024-01-21 09:30 | W.PN.HOSP.TC ---
Today's Communication/Plan
-
Continue IV diuresis as per cardiology, weight and oxygen requirements have improved from yesterday
Appreciate cardiology and pulmonary
Assessment / Plan
Assessment / Plan
Echo 05/21/23: Study was discontinued as patient refused to let technologist continue.Normal left ventricular chamber size with concentric remodeling and hyperdynamic left ventricular systolic function. No obvious wall motion abnormalities. Left
ventricular ejection fraction is 70-75% by visual estimate. Diastolic function indeterminate. Normal right ventricular size and function.Mild left atrial dilation.Moderate right atrial dilation.Dense posterior mitral annular
calcification.Trileaflet, sclerotic aortic valve with calcification of the base of the right coronary leaflet but adequate aortic leaflet excursion without stenosis.Trivial pericardial effusion.The IVC is not visualized.RV/RA pressure gradient is 41
mmHg, implying at least mild pulmonary
hypertension.
CXR: There is patchy airspace disease bilaterally and diffusely consistent with diffuse pneumonia.
Physical Exam
General Not in acute distress
Cardiovascular system [id number]
Chest decreased breath sounds at bases-few rales bilateral
Abdomen soft and nontender
Lower extremity edema bilaterally
Assessment/Plan
Acute hypoxemic and hypercapnic respiratory failure due to acute on chronic HFpEF:
-Chest x-ray with pulmonary edema, proBNP 1030 in the setting of pulmonary restriction due to morbid obesity due to excess calories and underlying COPD (which is not in acute exacerbation)
-Cont Lasix 160mg IV BID -- weight is going down and oxygen requirements improved after Lasix was increased to 160 mg IV BID yesterday
-Add Metolazone 1x dose on 01/19/24 but weight did not go down significantly and oxygen requirement went up, and another dose of Metolazone 1x dose was given on 01/20/24
-Diuresis as per cardiology
-Was on BIPAP 15/5 with 10L O2 on admission, now at 4L midflow O2 (from 6L). Wean for pulse ox 91%.
-Pulm/cards following
-On Farxiga
Hypokalemia
-Resolved
-Continue to monitor BMP
-Replace
Other problems:
Permanent Atrial fibrillation with RVR: Cont Eliquis. No BB with COPD.
PSVT
h/o Endometrial cancer
COPD: cont Duonebs/Azithro/Arnuity Ellipta
Essential hypertension: cont candesartan/clonidine/Cardizem/Hydralazine
Hyperlipidemia: cont statin
Hypothyroidism: cont Levoxyl
ARIANA
Interstitial lung disease
Morbid obesity due to excess calories
Chronic macrocytic anemia
Nlpnlowqzv-ykola-cejhuolxshhgu for the past 6 months per
DNR/I - confirmed with the pt's in the ER
DVT prophylaxis-Eliquis
Discussed with at bedside
Speech Therapy Comments: '....Ok to continue current diet. Infrequent dry non-productive cough noted in between/after PO. Suspect unrelated as video swallow study 04/26/2022 oral/pharyngeal swallow was WFL, pt w/ other reasons which could cause
cough (COPD, CHF, ILD) and pt/family deny dysphagia. However, if concerned for new aspiration please reconsult via video swallow study.'
Anticipated Discharge: 24 - 48 hours
Subjective/Interval History
-
Date of Service: January 21, 2024
Patient was seen and examined. No new symptoms or complaints, she wore BiPAP overnight.
Objective Data
-
Labs:
Laboratory Results
01/21/24
04:48
Sodium 137
Potassium 4.5
Chloride 92 L
Carbon Dioxide 38 H
BUN 39 H
Creatinine 1.0
Glucose 137 H
Calcium 9.6
Vital Signs:
Vital Signs
Temp Pulse Resp BP Pulse Ox
97.8 F 85 22 144/68 98
01/21/24 08:17 01/21/24 08:28 01/21/24 08:28 01/21/24 06:00 01/21/24 08:28
I&O
01/20/24 01/21/24 01/22/24
06:59 06:59 06:59
Intake Total 1045 / 1045
Output Total 800 / 800 2900 / 2900
Balance -800 / -800 -1855 / -1855
--- NOTE | 2024-01-21 13:47 | PN.CDI ---
CDI
- -
CDI:
Physician Documentation Request
Admit Date: 01/13/24 11:37
Dear Doctor Chase,
Patient admitted for acute heart failure.
01/15-01/19 Nursing documentation: 'Pressure injury stage 1 bilateral buttocks'
Physician documentation of the type and location of wounds is required for compliant documentation. Based on the above clinical findings and your assessment, please provide the following in your progress note:
1. Location of the ulcer/wound, including laterality.
2. Type (etiology) of ulcer/wound:
- Diabetic ulcer
- Arterial (ischemic) ulcer
- Traumatic wound
- Venous stasis ulcer
- Pressure (decubitus) ulcer
- Non-healing surgical wound
- Other
- Unable to determine
3. For a non-pressure ulcer, please indicate the depth/severity:
- Limited to the breakdown of skin
- With fat layer exposed
- With necrosis of muscle
- With necrosis of bone
- Other
- Unable to determine
4. If a pressure ulcer, please also include the stage* of the ulcer:
- Stage 1 - Skin intact, non-blanchable redness
- Stage 2 - Partial thickness loss of dermis, includes intact or open blister
- Stage 3 - Full thickness tissue not including bone, tendon or muscle
- Stage 4 - Full thickness tissue loss, including exposed bone, tendon or muscle
- Unstageable - Full thickness loss in which the base of the ulcer is covered by slough (yellow, roberst, hunter, green or brown) and/or eschar (roberts, brown or black) in the wound bed.
- Unable to determine
Use of terms such as suspected, likely, concern for, or probable (associated with a specific diagnosis that is being evaluated, monitored, or treated as if it exists) are acceptable and can be coded in the inpatient setting, when documented at the
time of discharge.
Thank you,
Ivonne Dueñas RN, BSN
CDI Specialist
Available via [place] text
Please use your independent medical judgment in providing your response.
*Source: National Pressure Ulcer Advisory Panel (NPUAP)
--- NOTE | 2024-01-21 17:07 | CM ---
Patient from [facility] with Dx Acute hypoxemic and hypercapnic respiratory failure, HF. O2 6L midflow. Receiving IV Lasix. Right heart cath on hold. Seen by wound care nurse. PT; No skilled PT needed.
[facility]; she requested updated clinical in [facility].
[facility]: The for report [phone], fax [phone].
Plan contact patient/ prior to d/c.
Plan return to [facility] when medically ready.
[2024-01-21] MEDS: APRESOLINE PO (17:21)
[2024-01-21] MEDS: LIPITOR 40 MG PO (17:21)
[2024-01-22] VITALS (12 sets, daily range): BP systolic 112–154; BP diastolic 52–77; BMI 46.9
[2024-01-22] MEDS: NON-FORMULARY ITEM 75 MG PO (05:03)
[2024-01-22] MEDS: SYNTHROID 112 MCG PO (05:03)
--- NOTE | 2024-01-22 05:49 | PTCARENOTE ---
Caring for patient overnight. aaox3, withdrawn & agitated at times. afib on monitor, bedrest. Remained on 5LMF. placed on bipap HS but only tolerated it for 1 hour, tried educating pt to keep the mask on for longer but pt took it off herself and
desated to low 70's. Bradford in place, draining yellow. tubigrips removed HS. Edematous. Antifungal meds applied. Q2T but refused a lot of them. Refused to elevate her feet. All other VSS. WIll continue to monitor.
[2024-01-22 05:59] LABS: Blood Urea Nitrogen 47 mg/dl (7-17); Calcium 9.5 mg/dl (8.4-10.2); Chloride 91 mmol/L (98-107); Estimated Creatinine Clearance 45 ml/min; Glucose 136 mg/dl (70-99); Potassium 4.2 mmol/L (3.5-5.1); Sodium 137 mmol/L (135-145); eGFR 49.24
[2024-01-22 06:17] LABS: Carbon Dioxide 42 mmol/L (22-30)
--- NOTE | 2024-01-22 06:31 | PTCARENOTE ---
pt only wore bipap for about 1.5hours last night. refused to wear it any longer. pulled it off.
[2024-01-22] MEDS: FLOVENT 44 MCG INHALER 2 PUFF INH (07:30)
[2024-01-22] MEDS: DUONEB 3 ML INH (07:30)
--- NOTE | 2024-01-22 07:36 | W.PN.CD ---
Today's Communication / Plan
-
added metolazone q48 hours
continue diuresis
nearing baseline, d/c planning
Impression / Plan
-
Acute hypoxic and hypercapnic respiratory failure, suspect multifactorial
- COPD and ILD chronically
- treating currently for PNA and ADHF
- mildly net negative on lasix 80x2 + metolazone though no change in weight
- remains on oxygen, no subjective improvement compared to 01/18
- not change in mild pulmonary edema between 01/15 and 01/18
- challenging volume exam
- plan outlined by Dr Alexandra watts to increase diuretic to 160 mg IV lasix + metolazone for goal negative 1-1.5 L.
-no metolazone 01/20 and still neagivnt 1400, wt seems unreliable (bed scale)
-will start metolazone q48h
- Agree with Dr Bowling 01/21/24 'Hold on RHC since patient appeared to have response to diuretic on 01/20/2024 - 01/21/2024 with diuresis, reduction in weight and stable renal function. '
-Discussed with Dr Matos who knows her in the OP setting and she is [place]
- monitor renal function
HFpEF, acute on chronic
-She has diuresed, goal weight ~250 (may need to settle for slightly higher)
-weight slightly up today despite addition of metolazone
-Primary cardiology would like to increase home lasix to 80 mg bid on d/x
- diuretic issues as above
-Cont Farxiga 10 mg for HFpEF
-Trend daily weight, I/Os, and BMP with diuresis
Permanent Atrial fibrillation with RVR => rate improved with therapy.
-Dilt 180 for better HR control
-Avoid beta mike given underlying lung disease
-Oral Anticoagulation: Eliquis 5mg BID
-[id number]: score at least 5 (Heart failure, HTN, age 75 or more, female gender)
PNA:
-ltx per primary team
HTN, urgency: Improved
-recent hydralazine to 50 TID
ILD/ARIANA with oxygen dependence, baseline 3LPM
Thrombocytopenia, on Promacta
ARIANA with chronic hypercapnia
Chronic lymphedema
Obesity, BMI 48
Subjective:
awake,she feels the same as she always does and as usually isn't really interested in interacting with me
TTE 05/21/23:
Study was discontinued as patient refused to let technologist continue.
�Normal left ventricular chamber size with concentric remodeling and
�hyperdynamic left ventricular systolic function. No obvious wall motion
�abnormalities.� Left ventricular ejection fraction is 70-75% by visual
�estimate.� Diastolic function indeterminate.
�Normal right ventricular size and function.
�Mild left atrial dilation.
�Moderate right atrial dilation.
�Dense posterior mitral annular calcification.
�Trileaflet, sclerotic aortic valve with calcification of the base of the right
�coronary leaflet but adequate aortic leaflet excursion without stenosis.
�Trivial pericardial effusion.
�The IVC is not visualized.
�RV/RA pressure gradient is 41 mmHg, implying at least mild pulmonary
�hypertension.
Physical Exam
Vital Signs/Labs
Vital Signs
Temp Pulse Resp BP Pulse Ox
98.0 F 96 18 145/77 98
01/22/24 07:00 01/22/24 07:35 01/22/24 07:35 01/22/24 04:00 01/22/24 07:35
01/21/24 01/22/24 01/23/24
06:59 06:59 06:59
Actual Weight 116.2 kg 116.2 kg
01/19/24 04:49
01/22/24 05:23
Magnesium 2.1 mg/dl (1.6-2.3) 01/18/24 06:37
01/13/24 01/13/24
09:19 09:50
Mbt-T-Rjlqdwnzrob Pept Cancelled 1029
Physical Exam
Constitutional: No acute distress and Other (morbidly obese)
Cardiovascular: Systolic murmur absent, Diastolic murmur absent, Rhythm/rate is irregular and Pedal edema present (chronic, but soft 2+)
Respiratory: Respiratory effort normal and Wheeze Present (mild diffuse (d/w pulmonary, always mild wheeze at baseline))
Neuro/Psych: AO x 3
Data Reviewed
-
Date of Service: January 22, 2024
Medical Decision Making: Independent Historian Assessment and Review of Case with other Provider (D/w Dr Matos, Dr Capps---nearing baseline adding metolazone)
--- NOTE | 2024-01-22 08:43 | W.PN.PUL3 ---
Today's Communication / Plan
-
Repeat ABG today on 3L
Continue BiPAP as able at night
Consider revisiting goals of care. Patient does not want to BiPAP
May be more appropriate for palliative care
Disposition efforts
Assessment
-
83-year-old female with complex medical history, history of heart failure, COPD, sleep apnea with obesity hypoventilation on chronic oxygen therapy, CPAP therapy residential resident presents with hypoxia, respiratory distress found to have
bilateral infiltrates per chest x-ray. We are asked to comment on pulmonary process
Acute hypoxic respiratory insufficiency
70% saturation requiring 6 L of oxygen
Bilateral pulmonary infiltrates
Suspected infectious pneumonitis, less likely heart failure
Leukocytosis
Chronic hypercapnia, compensated
Baseline pCO2 78
Hyperglycemia
Conditions present prior to admission
History of atrial fibrillation
History of heart failure
Normal biventricular function
Mild pulmonary hypertension, PA pressure 41
Hypertension/hyperlipidemia
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
ILD, mild patchy bronchiolitis on prior imaging
Former smoker, 38-[id number]-ygmx quit
Obstructive sleep apnea noncompliant with CPAP
Obesity hypoventilation syndrome
Chronic hypercapnic respiratory failure
Chronic lymphedema of the lower extremities
Chronic wound issues chronic GERD
With esophagitis
Chronic anemia
Chronic thrombocytopenia, on promacta
History of ITP
Morbid Obesity BMI 50
Hypothyroidism
History of uterine cancer, hysterectomy 2008
NHR
DNR
Plan recommendations
At this time, patient appears to be comfortable. Tolerated BiPAP intermittently, does not maintain throughout the night
97% on 4 L this a.m.
98% on 6 L this morning
Decreased to 3 L this morning, remains 97%
Weight is down 11 kg since admission
Chest x-ray 01/18 significantly improved compared to 01/12
Procalcitonin negative. Antibiotics have been discontinued by primary service
Creatinine slowly trending up, 1.1
Hypertension noted
Moving forward
I do think she is close to her baseline
She normally uses 2.5 to 3 L at the residential
Would not be surprised if she desaturates on BiPAP given her significant sleep apnea
This is okay. Continue to wean oxygen during the day
Maintain saturation around 90%
Continue with diuresis per cardiology. Not sure a right heart cath is helpful at this time
She has chronic hypercapnic respiratory failure on CPAP. According to is noncompliant. She also has severe obstructive lung disease, maintained on outpatient nebulizer therapy
She has history of pulm hypertension
She is sedentary, with lymphedema, chronic wound issues right lower extremity
Recent echocardiogram with normal biventricular function
DNR status noted
Chronic residential resident
Patient received 2 days of Zosyn therapy, cultures as able
Hold azithromycin Friday/Friday/Friday during hospital stay. Can resume at time of discharge
Remains off antibiotics
Chest x-ray overall improved more consistent with heart failure
Given improvement in oxygen requirement, chest x-ray and symptoms, do not feel additional testing is necessary at this time
Patient does have adequate cough
Encourage airway clearance
Follow cultures as able
ABG reviewed. Chronic compensated hypercapnia noted
Patient is supposed to be on BiPAP 05/16. Tolerated 15/5 overnight
admits that patient is noncompliant with this at the residential
This should continue as outpatient
Repeat ABG in a.m.
There is no indication for steroids at this time. Will follow
The patient does have chronic hypoxia, on home oxygen in the past
Presently appears to be comfortable with no use of accessory muscles
DVT prophylaxis: Patient on Eliquis for atrial fibrillation
GI prophylaxis: Remains on pantoprazole
DNR status noted
Disposition efforts
Will continue to follow at request of cardiology
Diagnostic Data:
CXR 05-23-23: No acute cardiopulmonary process.
CXR 05-20-23 c/w August 2022: portable film underpenetrated but c/w increased pulm vasc and parenchymal congestion
SHEFALI doppler 05-20-23 IMPRESSION: Limited study (patient could not tolerate compression) demonstrating no evidence of deep venous thrombosis
CXR 04/24- IMPRESSION: Possible early or mild pneumonitis in the lateral right midlung zone.
CT Scan: CHEST 04/24/22- Nonspecific pulmonary parenchymal findings, as described. Consider possible volume overload or congestive heart failure. Small regions of nonspecific bronchiolitis are suspected. Minor scarring versus atelectasis in the
posterior right lung base. Otherwise, no focal dense consolidation.
Echocardiogram 10/30/20 reviewed-EF 75%, mild mitral regurgitation, PA systolic estimated 52 the change from 09/03/18
Note: Renal ultrasound 10/31/20-unremarkable
PFT's: 02/08/20- FVC 1.53L 71%, FEV1 1.04L 65%, ratio 68 (moderate obstruction); TLC 2.48L 56%, DLCO 40%
Subjective Data
-
Date of Service:
Date of Service: January 22, 2024
Subjective:
Patient is without complaints. Denies any chest pain, chest tightness, lightheadedness, dizziness. Only tolerated BiPAP overnight for few hours. Presently is 97% on 4 L
Objective Data
Data Reviewed
Vital Signs / I&O / Oxygen:
Vital Signs
Temp Pulse Resp BP Pulse Ox
98.0 F 96 18 145/77 98
01/22/24 07:00 01/22/24 07:35 01/22/24 07:35 01/22/24 04:00 01/22/24 07:35
Intake and Output
01/21/24 01/22/24 01/23/24
06:59 06:59 06:59
Intake Total 1045 / 1045 480 / 480
Output Total 2900 / 2900 1900 / 1900
Balance -1855 / -1855 -1420 / -1420
SaO2 98
Nasal Cannula flow liters per 5
minute
Physical Exam
General: Comfortable
HEENT: Normocephalic and Other (Large neck)
Cardiovascular: S1-S2, Regular Rhythm, Murmur (n), Rub (n) and Peripheral Edema (Chronic lymphedema, wrapping in place)
Respiratory: Wheeze (n), Crackles (Few), Rhonchi (n), Non-Labored Respirations and Other (Decreased breath sounds)
GI: Soft, Non Distended (Morbidly obese) and Non Tender
Neurology: Awake, Alert and No Motor Deficits (Moves all extremities, conversant)
Skin: Warm, Cyanosis (n) and Rash (n)
Labs/Micro/Reports
Lab Data
01/19/24 04:49
01/22/24 05:23
[2024-01-22] MEDS: DESENEX/MITRAZOL/ZEASORB 1 APPLIC TOPICAL ×2 (09:14→20:19)
[2024-01-22] MEDS: COLACE 200 MG PO (09:15)
[2024-01-22] MEDS: TYLENOL 1000 MG PO ×2 (09:15→20:23)
[2024-01-22] MEDS: PROTONIX 20 MG PO (09:16)
[2024-01-22] MEDS: ELIQUIS 5 MG PO ×2 (09:16→20:24)
[2024-01-22] MEDS: MYRBETRIQ EXTENDED RELEASE 50 MG PO (09:16)
[2024-01-22] MEDS: CARDIZEM CD 180 MG PO (09:17)
[2024-01-22] MEDS: ATACAND 4 MG PO (09:17)
[2024-01-22] MEDS: ZAROXOLYN 2.5 MG PO (09:17)
[2024-01-22] MEDS: FARXIGA 10 MG PO (09:18)
[2024-01-22] MEDS: CATAPRES 0.1 MG PO ×2 (09:19→20:24)
[2024-01-22] MEDS: KCL 20 MEQ PO ×2 (09:19→20:24)
[2024-01-22] MEDS: ANTIFUNGAL CLEAR 1 APPLIC TOPICAL ×2 (09:20→20:22)
[2024-01-22] MEDS: APRESOLINE 50 MG PO ×3 (09:20→22:01)
[2024-01-22] MEDS: LASIX 16 MG IV ×2 (09:21→17:37)
[2024-01-22] MEDS: LAC HYDRIN, AM LACTIN LOTION 1 APPLIC TOPICAL ×2 (09:21→20:22)
--- NOTE | 2024-01-22 09:34 | W.PN.HOSP.TC ---
Addendum entered and electronically signed by Chino Stone MD 01/22/24 09:50:
Pressure injury stage 1 bilateral buttocks
Original Note:
Today's Communication/Plan
-
Continue IV Diuresis and Metolazone Q48H -- weight approaching baseline
Oxygen requirements improving
PT/OT, Discharge Planning
Assessment / Plan
Assessment / Plan
Echo 05/21/23: Study was discontinued as patient refused to let technologist continue.Normal left ventricular chamber size with concentric remodeling and hyperdynamic left ventricular systolic function. No obvious wall motion abnormalities. Left
ventricular ejection fraction is 70-75% by visual estimate. Diastolic function indeterminate. Normal right ventricular size and function.Mild left atrial dilation.Moderate right atrial dilation.Dense posterior mitral annular
calcification.Trileaflet, sclerotic aortic valve with calcification of the base of the right coronary leaflet but adequate aortic leaflet excursion without stenosis.Trivial pericardial effusion.The IVC is not visualized.RV/RA pressure gradient is 41
mmHg, implying at least mild pulmonary
hypertension.
CXR: There is patchy airspace disease bilaterally and diffusely consistent with diffuse pneumonia.
Physical Exam
General Not in acute distress
Cardiovascular system [id number]
Chest decreased breath sounds at bases-few rales bilateral
Abdomen soft and nontender
Lower extremity edema bilaterally
Assessment/Plan
Acute hypoxemic and hypercapnic respiratory failure due to acute on chronic HFpEF:
-Chest x-ray with pulmonary edema, proBNP 1030 in the setting of pulmonary restriction due to morbid obesity due to excess calories and underlying COPD (which is not in acute exacerbation)
-Cont Lasix 160mg IV BID -- weight is going down and oxygen requirements improved after Lasix was increased to 160 mg IV BID yesterday
-Now Metolazone Q48H
-Diuresis as per cardiology
-Was on BIPAP 15/5 with 10L O2 on admission, now at 4L midflow O2 (from 6L). Wean for pulse ox 90% (at baseline patient normally uses 2.5 to 3 L at the [facility])
-Pulm/cards following
-On Farxiga
Hypokalemia
-Resolved
-Continue to monitor BMP
-Replace
Other problems:
Permanent Atrial fibrillation with RVR: Cont Eliquis. No BB with COPD.
PSVT
h/o Endometrial cancer
COPD: cont Duonebs/Arnuity Ellipta. Can resume Azithromycin on discharge.
Essential hypertension: cont candesartan/clonidine/Cardizem/Hydralazine
Hyperlipidemia: cont statin
Hypothyroidism: cont Levoxyl
ARIANA - noncompliant with CPAP. Continue BiPAP 05/16 outpatient.
Pulmonary Hypertension
Interstitial lung disease
Morbid obesity due to excess calories
Chronic macrocytic anemia
Gxctaqkcfh-qpgij-fknyqjdtxnsom for the past 6 months per
DNR/I - confirmed with the pt's in the ER
DVT prophylaxis-Eliquis
Speech Therapy Comments: '....Ok to continue current diet. Infrequent dry non-productive cough noted in between/after PO. Suspect unrelated as video swallow study 04/26/2022 oral/pharyngeal swallow was WFL, pt w/ other reasons which could cause
cough (COPD, CHF, ILD) and pt/family deny dysphagia. However, if concerned for new aspiration please reconsult via video swallow study.'
Anticipated Discharge: 24 - 48 hours
Subjective/Interval History
-
Date of Service: January 22, 2024
Patient was seen and examined. She wore BiPAP for only a part of the night. She denied any new symptoms or complaints.
Objective Data
-
Labs:
Laboratory Results
01/22/24 01/22/24
05:23 09:22
HCO3 Pending
Sodium 137
Potassium 4.2
Chloride 91 L
Carbon Dioxide 42 H
BUN 47 H
Creatinine 1.1 H
Glucose 136 H
Calcium 9.5
Vital Signs:
Vital Signs
Temp Pulse Resp BP Pulse Ox
98.0 F 90 18 119/70 98
01/22/24 07:00 01/22/24 09:21 01/22/24 07:35 01/22/24 09:21 01/22/24 07:35
I&O
01/21/24 01/22/24 01/23/24
06:59 06:59 06:59
Intake Total 1045 / 1045 480 / 480
Output Total 2900 / 2900 1900 / 1900
Balance -1855 / -1855 -1420 / -1420
[2024-01-22 09:57] LABS: B.E. 18.1 mmol/L; PCO2 66 mmHg (32-35); PO2 101 mmHg (83-108); pH 7.44 (7.35-7.45)
[2024-01-22 10:02] LABS: HCO3 44.8 mmol/L (21-28)
[2024-01-22] MEDS: DUONEB INH ×3 (11:13→19:54)
--- NOTE | 2024-01-22 14:17 | WOUNDNOTE ---
WO RN note: Patient's RLE healing. Buttocks skin less chafed than last week. Skin on heels intact. L heel blanchable red. Patient has been refusing heel elevation. RLE dressing done. Miconazole and barrier ointment applied to buttocks. Groin MASD
improved slightly from last week. Patient turned to L semi side lying position. Knee high Tubigrips applied. Heels off bed with air chair cushion. Will follow as needed.
--- NOTE | 2024-01-22 16:07 | PTCARENOTE ---
Patient was refusing care this morning, didn't want to be moved, touched or blankets to be removed. Patient educated about plan of care with present. Wound care provided. Patients pulse ox drops at times into the 80s, patient asymptomatic
during these drops. Pulse ox has been in the low 90s overall this shift on 3 liters oxygen.
--- NOTE | 2024-01-22 17:22 | CM ---
Patient from [facility] with Dx Acute hypoxemic and hypercapnic respiratory failure, HF. O2 3L midflow. BiPAP. Receiving IV Lasix. PT & OT; Therapy not warranted. Seen by wound care nurse - wound care daily.
Fuentes, [facility]; discussed patient's wound care needs. She requested updated clinical in [facility].
[facility]: The for report [phone], fax [phone].
Plan contact patient/ prior to d/c.
Plan return to [facility] when medically ready.
[2024-01-22] MEDS: LIPITOR 40 MG PO (17:39)
[2024-01-22] MEDS: FLOVENT 44 MCG INHALER INH (19:54)
--- NOTE | 2024-01-22 23:03 | RESPNOTE ---
Pt refused HS BiPAP. RN notified.
[2024-01-23] VITALS (10 sets, daily range): BP systolic 117–152; BP diastolic 50–101; BMI 45.9
--- NOTE | 2024-01-23 02:38 | PTCARENOTE ---
Patient began to desat into the 80s while sleeping but patient refuses bipap. Woke patient up and increased O2 to 5L, patient was Ax3 answering questions. sats returned to 90s when O2 increased.
[2024-01-23] MEDS: NON-FORMULARY ITEM 75 MG PO (05:03)
[2024-01-23] MEDS: SYNTHROID 112 MCG PO (05:03)
[2024-01-23 06:34] LABS: Blood Urea Nitrogen 55 mg/dl (7-17); Calcium 9.5 mg/dl (8.4-10.2); Chloride 89 mmol/L (98-107); Estimated Creatinine Clearance 41 ml/min; Glucose 148 mg/dl (70-99); Magnesium 2.1 mg/dl (1.6-2.3); Potassium 4.1 mmol/L (3.5-5.1); Sodium 137 mmol/L (135-145); eGFR 44.36
[2024-01-23 06:44] LABS: Carbon Dioxide 37 mmol/L (22-30)
[2024-01-23] MEDS: DUONEB INH (07:34)
[2024-01-23] MEDS: FLOVENT 44 MCG INHALER INH (07:34)
--- NOTE | 2024-01-23 08:18 | W.PN.CD ---
Today's Communication / Plan
-
transition to Torsemide 40mg po bid
continue metolazone q 48h
renal panel in 5-7 days
Impression / Plan
-
Acute hypoxic and hypercapnic respiratory failure, suspect multifactorial
remains hypercapneic and refusing bipap
- COPD and ILD chronically
- treating currently for PNA and ADHF
HFpEF, acute on chronic
-She has diuresed, goal weight ~250
-continue metolazone q48 hours--had a good response
-transition to Torsemide 40mg po BID
-Cont Farxiga 10 mg for HFpEF
-please check renal panel in 5-7 days
-Trend daily weight, I/Os, and BMP with diuresis
Permanent Atrial fibrillation with RVR => rate improved with therapy.
-Dilt 180 for better HR control
-Avoid beta mike given underlying lung disease
-Oral Anticoagulation: Eliquis 5mg BID
-[id number]: score at least 5 (Heart failure, HTN, age 75 or more, female gender)
PNA:
-ltx per primary team
HTN, urgency: Improved
-recent hydralazine to 50 TID
ILD/ARIANA with oxygen dependence, baseline 3LPM
Thrombocytopenia, on Promacta
ARIANA with chronic hypercapnia
Chronic lymphedema
Obesity, BMI 48
Subjective:
asleep but easily arousable. No complaints
TTE 05/21/23:
Study was discontinued as patient refused to let technologist continue.
�Normal left ventricular chamber size with concentric remodeling and
�hyperdynamic left ventricular systolic function. No obvious wall motion
�abnormalities.� Left ventricular ejection fraction is 70-75% by visual
�estimate.� Diastolic function indeterminate.
�Normal right ventricular size and function.
�Mild left atrial dilation.
�Moderate right atrial dilation.
�Dense posterior mitral annular calcification.
�Trileaflet, sclerotic aortic valve with calcification of the base of the right
�coronary leaflet but adequate aortic leaflet excursion without stenosis.
�Trivial pericardial effusion.
�The IVC is not visualized.
�RV/RA pressure gradient is 41 mmHg, implying at least mild pulmonary
�hypertension.
Physical Exam
Vital Signs/Labs
Vital Signs
Temp Pulse Resp BP Pulse Ox
98.1 F 89 20 141/68 93
01/23/24 07:00 01/23/24 06:00 01/23/24 06:00 01/23/24 06:00 01/23/24 06:00
01/22/24 01/23/24 01/24/24
06:59 06:59 06:59
Actual Weight 116.2 kg 113.8 kg
01/19/24 04:49
01/23/24 06:00
Magnesium 2.1 mg/dl (1.6-2.3) 01/23/24 06:00
01/13/24 01/13/24
09:19 09:50
Vnd-E-Yttirgewogo Pept Cancelled 1030
Physical Exam
Constitutional: No acute distress and Comfortable
Cardiovascular: JVD pressure is normal, Systolic murmur absent, Diastolic murmur absent, Rhythm/rate is irregular and Pedal edema present
Respiratory: Respiratory effort normal, Lungs clear to auscul., Wheeze Absent, Crackles Absent and Rhonchi Absent
Neuro/Psych: AO x 3
Data Reviewed
-
Date of Service: January 23, 2024
Medical Decision Making: Review of Case with other Provider (d/w nursing and Dr Capps re transition to po)
EKG: Other (tele fib rate controlled with pvcs)
--- NOTE | 2024-01-23 08:23 | W.PN.PUL3 ---
Today's Communication / Plan
-
Diuresis per cardiology. She is close to her baseline from pulmonary standpoint
Compensated hypercapnia
Continue nocturnal BiPAP
Consider discussions regarding goals of care, this can be done as outpatient
We will sign off. Please call with questions
Assessment
-
83-year-old female with complex medical history, history of heart failure, COPD, sleep apnea with obesity hypoventilation on chronic oxygen therapy, CPAP therapy senior care resident presents with hypoxia, respiratory distress found to have
bilateral infiltrates per chest x-ray. We are asked to comment on pulmonary process
Acute hypoxic respiratory insufficiency
70% saturation requiring 6 L of oxygen
Bilateral pulmonary infiltrates
Suspected infectious pneumonitis, less likely heart failure
Leukocytosis
Chronic hypercapnia, compensated
Baseline pCO2 78
Hyperglycemia
Conditions present prior to admission
History of atrial fibrillation
History of heart failure
Normal biventricular function
Mild pulmonary hypertension, PA pressure 41
Hypertension/hyperlipidemia
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
ILD, mild patchy bronchiolitis on prior imaging
Former smoker, [id number] quit
Obstructive sleep apnea noncompliant with CPAP
Obesity hypoventilation syndrome
Chronic hypercapnic respiratory failure
Chronic lymphedema of the lower extremities
Chronic wound issues chronic GERD
With esophagitis
Chronic anemia
Chronic thrombocytopenia, on promacta
History of ITP
Morbid Obesity BMI 50
Hypothyroidism
History of uterine cancer, hysterectomy 2008
NHR
DNR
Plan recommendations
At this time, patient appears to be comfortable. Tolerated BiPAP intermittently, does not maintain throughout the night
98% on 3 L this morning
Weight is down 14 kg since admission
Chest x-ray 01/18 significantly improved compared to 01/12
Procalcitonin negative. Antibiotics have been discontinued by primary service
Creatinine slowly trending up, 1.2
Hypertension noted
Moving forward
I do think she is close to her baseline
She normally uses 2.5 to 3 L at the senior care
Would not be surprised if she desaturates on BiPAP given her significant sleep apnea
This is okay. Continue to wean oxygen during the day
Maintain saturation around 90%, Compensated chronic hypercapnia
ABG 7.44/66/101 on 3L
Continue with diuresis per cardiology.
Follow creatinine
She has chronic hypercapnic respiratory failure on CPAP. According to is noncompliant. She also has severe obstructive lung disease, maintained on outpatient nebulizer therapy
She has history of pulm hypertension
She is sedentary, with lymphedema, chronic wound issues right lower extremity
Recent echocardiogram with normal biventricular function
DNR status noted
Chronic senior care resident
Patient received 2 days of Zosyn therapy, cultures as able
Hold azithromycin Friday/Friday/Friday during hospital stay. Can resume at time of discharge
Remains off antibiotics
Chest x-ray overall improved more consistent with heart failure
Given improvement in oxygen requirement, chest x-ray and symptoms, do not feel additional testing is necessary at this time
Patient does have adequate cough
Encourage airway clearance
Follow cultures as able
ABG reviewed. Chronic compensated hypercapnia noted
Patient is supposed to be on BiPAP 05/16. Tolerated 15/5 overnight
admits that patient is noncompliant with this at the senior care
This should continue as outpatient
There is no indication for steroids at this time. Will follow
The patient does have chronic hypoxia, on home oxygen in the past
Presently appears to be comfortable with no use of accessory muscles
DVT prophylaxis: Patient on Eliquis for atrial fibrillation
GI prophylaxis: Remains on pantoprazole
DNR status noted
Disposition efforts
We will sign off. Please call with questions
Diagnostic Data:
CXR 05-23-23: No acute cardiopulmonary process.
CXR 05-20-23 c/w August 2022: portable film underpenetrated but c/w increased pulm vasc and parenchymal congestion
SHEFALI doppler 05-20-23 IMPRESSION: Limited study (patient could not tolerate compression) demonstrating no evidence of deep venous thrombosis
CXR 04/24- IMPRESSION: Possible early or mild pneumonitis in the lateral right midlung zone.
CT Scan: CHEST 04/24/22- Nonspecific pulmonary parenchymal findings, as described. Consider possible volume overload or congestive heart failure. Small regions of nonspecific bronchiolitis are suspected. Minor scarring versus atelectasis in the
posterior right lung base. Otherwise, no focal dense consolidation.
Echocardiogram 10/30/20 reviewed-EF 75%, mild mitral regurgitation, PA systolic estimated 52 the change from 09/03/18
Note: Renal ultrasound 10/31/20-unremarkable
PFT's: 02/08/20- FVC 1.53L 71%, FEV1 1.04L 65%, ratio 68 (moderate obstruction); TLC 2.48L 56%, DLCO 40%
Subjective Data
-
Date of Service:
Date of Service: January 23, 2024
Subjective:
Patient without complaints. Sleeping, arousable. Negative fluid status noted
Objective Data
Data Reviewed
Vital Signs / I&O / Oxygen:
Vital Signs
Temp Pulse Resp BP Pulse Ox
98.1 F 89 20 141/68 93
01/23/24 07:00 01/23/24 06:00 01/23/24 06:00 01/23/24 06:00 01/23/24 06:00
Intake and Output
01/22/24 01/23/24 01/24/24
06:59 06:59 06:59
Intake Total 480 / 480 384 / 384
Output Total 1900 / 1900 2250 / 2250
Balance -1420 / -1420 -1866 / -1866
SaO2 93
Nasal Cannula flow liters per 3
minute
Physical Exam
General: Comfortable
HEENT: Normocephalic and Other (Large neck)
Cardiovascular: S1-S2, Regular Rhythm, Murmur (n), Rub (n) and Peripheral Edema (Chronic lymphedema, wrapping in place)
Respiratory: Wheeze (n), Crackles (Few), Rhonchi (n), Non-Labored Respirations and Other (Decreased breath sounds)
GI: Soft, Non Distended (Morbidly obese) and Non Tender
Neurology: No Motor Deficits (Spontaneously moves extremities) and Lethargic (Awakens from sleep)
Skin: Warm, Cyanosis (n) and Rash (n)
Labs/Micro/Reports
Lab Data
01/19/24 04:49
01/23/24 06:00
Laboratory Results
01/22/24
09:48
pH 7.44
pCO2 66 H
pO2 101
HCO3 44.8 H*
O2 Delivery Level
[2024-01-23] MEDS: ANTIFUNGAL CLEAR 1 APPLIC TOPICAL (09:52)
[2024-01-23] MEDS: COLACE 200 MG PO (09:52)
[2024-01-23] MEDS: VITAMIN C 500 MG PO (09:52)
[2024-01-23] MEDS: ELIQUIS 5 MG PO (09:52)
[2024-01-23] MEDS: DESENEX/MITRAZOL/ZEASORB 1 APPLIC TOPICAL (09:52)
[2024-01-23] MEDS: PROTONIX 20 MG PO (09:53)
[2024-01-23] MEDS: TYLENOL 1000 MG PO (09:53)
[2024-01-23] MEDS: CATAPRES 0.1 MG PO (09:53)
[2024-01-23] MEDS: FEOSOL 325 MG PO (09:53)
[2024-01-23] MEDS: APRESOLINE 50 MG PO ×2 (09:53→15:09)
[2024-01-23] MEDS: ATACAND 4 MG PO (09:54)
[2024-01-23] MEDS: FARXIGA 10 MG PO (09:54)
[2024-01-23] MEDS: KCL 20 MEQ PO (09:54)
[2024-01-23] MEDS: CARDIZEM CD 180 MG PO (09:55)
[2024-01-23] MEDS: MIRALAX 17 GRAMS PO (09:55)
[2024-01-23] MEDS: MYRBETRIQ EXTENDED RELEASE 50 MG PO (09:55)
[2024-01-23] MEDS: LAC HYDRIN, AM LACTIN LOTION 1 APPLIC TOPICAL (09:55)
[2024-01-23] MEDS: ZITHROMAX 250 MG PO (09:58)
[2024-01-23] MEDS: LASIX IV (10:03)
--- NOTE | 2024-01-23 10:37 | CM ---
Patient from [facility] with Dx Acute hypoxemic and hypercapnic respiratory failure, HF. O2 3L. BiPAP. PT & OT; Therapy not warranted. Seen by wound care nurse - wound care daily.
[facility] are able to accept the patient back today. She is aware of daily wound care needs. Patient already has a BiPAP setup. She is aware that PT/OT indicated that therapy is not warranted - they will provide
PT there under Medicare Part B. The for report [phone], fax [phone].
Met with patient and Bernard; patient remained sleeping. repeatedly asked why patient was not getting PT/OT here- explained as per PT/OT notes several times. He continued to argue stating she has had PT/OT in the past at [facility]
[place] and he wants her to return there with PT/OT again so he gets insurance coverage for her bed cost for the period she is getting therapy, and also admitting that he realizes her mobility may have worsened since her last admission when she had
PT. Explained to multiple times that CM already spoke with James in [place] at [facility] who indicated that the patient would be able to receive PT/OT there through Medicare Part B. He agrees to the patient returning to [facility] today by
ambulance. IMM completed.
Plan return to [facility] today by ambulance.
--- NOTE | 2024-01-23 11:08 | W.PN.HOSP.TC ---
Today's Communication/Plan
-
Discharge today
Assessment / Plan
Assessment / Plan
Echo 05/21/23: Study was discontinued as patient refused to let technologist continue.Normal left ventricular chamber size with concentric remodeling and hyperdynamic left ventricular systolic function. No obvious wall motion abnormalities. Left
ventricular ejection fraction is 70-75% by visual estimate. Diastolic function indeterminate. Normal right ventricular size and function.Mild left atrial dilation.Moderate right atrial dilation.Dense posterior mitral annular
calcification.Trileaflet, sclerotic aortic valve with calcification of the base of the right coronary leaflet but adequate aortic leaflet excursion without stenosis.Trivial pericardial effusion.The IVC is not visualized.RV/RA pressure gradient is 41
mmHg, implying at least mild pulmonary
hypertension.
CXR: There is patchy airspace disease bilaterally and diffusely consistent with diffuse pneumonia.
Physical Exam
General Not in acute distress
Cardiovascular system [id number]
Chest decreased breath sounds at bases-few rales bilateral
Abdomen soft and nontender
Lower extremity edema bilaterally
Assessment/Plan
Acute hypoxemic and hypercapnic respiratory failure due to acute on chronic HFpEF
HFpEF
-Chest x-ray with pulmonary edema, proBNP 1030 in the setting of pulmonary restriction due to morbid obesity due to excess calories and underlying COPD (which is not in acute exacerbation)
-Status post IV Lasix
-Transition to Torsemide 40 mg PO BID
-Continue Metolazone Q48H
-Recheck BMP and Magnesium in 5 to 7 days
-Was on BIPAP 15/5 with 10L O2 on admission, now at 4L midflow O2 (from 6L). Wean for pulse ox 90% (at baseline patient normally uses 2.5 to 3 L at the longterm)
-Pulm/cards following
-Continue Farxiga 10 mg daily
Hypokalemia
-Resolved
-Continue to monitor BMP
-Replace
Other problems:
Permanent Atrial fibrillation with RVR: Continue Eliquis 5 mg BID. No BB with COPD. Continue increased dose of Diltiazem 180 mg daily.
PSVT
h/o Endometrial cancer
COPD: cont Duonebs/Arnuity Ellipta. Can resume Azithromycin on discharge. Maintain oxygen saturation 90%.
Essential hypertension: cont candesartan/clonidine/Cardizem/Hydralazine increased dose of 50 mg TID
Hyperlipidemia: cont statin
Hypothyroidism: cont Levoxyl
ARIANA - noncompliant with CPAP. Continue BiPAP 05/16 outpatient.
Pulmonary Hypertension
Interstitial lung disease
Morbid obesity due to excess calories
Chronic macrocytic anemia
Tldlzotlli-rptcd-cxrisavnqiavc for the past 6 months per
DNR/I - confirmed with the pt's in the ER
DVT prophylaxis-Eliquis
Speech Therapy Comments: '....Ok to continue current diet. Infrequent dry non-productive cough noted in between/after PO. Suspect unrelated as video swallow study 04/26/2022 oral/pharyngeal swallow was WFL, pt w/ other reasons which could cause
cough (COPD, CHF, ILD) and pt/family deny dysphagia. However, if concerned for new aspiration please reconsult via video swallow study.'
More than 30 minutes spent in discharge including
Final examination of the patient
Summarizing hospital stay
Instructions for continuing care to all relevant caregivers
Preparation of discharge records, prescriptions, and referral forms
Total time spent (in minutes): 37
Anticipated Discharge: Today
Subjective/Interval History
-
Date of Service: January 23, 2024
Patient was seen and examined. She reported no new symptoms or complaints overnight.
Objective Data
-
Labs:
Laboratory Results
01/23/24 01/23/24
05:07 06:00
Sodium Cancelled 137
Potassium Cancelled 4.1
Chloride Cancelled 89 L
Carbon Dioxide Cancelled 37 H
BUN Cancelled 55 H
Creatinine Cancelled 1.2 H
Glucose Cancelled 148 H
Calcium Cancelled 9.5
Vital Signs:
Vital Signs
Temp Pulse Resp BP Pulse Ox
98.1 F 86 20 152/63 93
01/23/24 07:00 01/23/24 09:55 01/23/24 06:00 01/23/24 09:55 01/23/24 06:00
I&O
01/22/24 01/23/24 01/24/24
06:59 06:59 06:59
Intake Total 480 / 480 384 / 384
Output Total 1900 / 1900 2250 / 2250
Balance -1420 / -1420 -1866 / -1866
[2024-01-23] MEDS: DUONEB 3 ML INH ×2 (11:10→14:55)
--- NOTE | 2024-01-23 11:55 | W.DS.TRANS ---
DC Summary - [employer]
-
Discharge Instructions:
Discharge Diagnosis/Procedures Acute hypoxemic and hypercapnic respiratory
failure due to acute on chronic HFpEF
HFpEF
Hypokalemia
Permanent Atrial fibrillation with Rapid
Ventricular Response
PSVT
History of endometrial cancer
COPD
Essential hypertension
Hyperlipidemia
Hypothyroidism
ARIANA
Pulmonary Hypertension
Interstitial lung disease
Morbid obesity due to excess calories
Chronic macrocytic anemia
Wheelchair-bound - non-ambulatory for the past 6
months per
Diet 2 Gram Sodium,Restrict fluids to 48 oz,Low Fat,
Low Cholesterol
Activity As tolerated
Driving Restrictions No driving
Blood Work BMP and Magnesium in 4 to 7 days. This will be
ordered at your cardiology visit.
Other Services PT,OT
Specialty Instructions Weigh Daily
Instructions: *CBC Heart Failure Instructions
Stand-Alone Forms:
Changes to Home Medications: Yes
Discharge Medications:
DC Medications w/original date entered in [employer]
acetaminophen 325 mg tablet 650 mg PO Q4HPRN PRN mild pain 12/05/20
fluticasone propionate 50 mcg/actuation nasal spray,suspension 1 spray intranasal BID Allergies 12/05/20
mirabegron 25 mg tablet,extended release 24 hr (Myrbetriq) 50 mg PO DAILY Urinary issue 12/05/20
clonidine HCl 0.1 mg tablet 0.1 mg PO BID Blood pressure 12/14/20
levothyroxine 112 mcg tablet 112 mcg PO DAILY AT 0700 Thyroid 02/15/22
candesartan 4 mg tablet 4 mg PO DAILY Blood pressure 30 days #30 tabs 02/20/22
atorvastatin 40 mg tablet (Lipitor) 40 mg PO QPM High cholesterol 04/12/22
bisacodyl 10 mg rectal suppository (Dulcolax (bisacodyl)) 10 mg RI [id number] PRN IF NO BM AND MOM IS INEFFECTIVE 04/12/22
ferrous gluconate 324 mg (38 mg iron) tablet 324 mg PO MOWEFR IRON DEFICIENCY ANEMIA 04/12/22
eltrombopag olamine 75 mg tablet (Promacta) 75 mg PO Q48H THROMBOCYTOPENIA 04/24/22
ipratropium 0.5 mg-albuterol 3 mg (2.5 mg base)/3 mL nebulization soln 3 ml inhalation R Q6HPRN PRN sob 04/24/22
ipratropium 0.5 mg-albuterol 3 mg (2.5 mg base)/3 mL nebulization soln 3 ml inhalation R QID SHORTNESS OF BREATH 04/24/22
azithromycin 250 mg tablet 250 mg PO MOWEFR Infection 09/01/22
benzonatate 100 mg capsule 200 mg (2 x 100 mg) PO TIDPRN PRN cough #7 caps 09/06/22
ammonium lactate 12 % topical cream 1 applic topical BID xerosis cutis 05/20/23
docusate sodium 100 mg capsule 200 mg PO DAILY Constipation 05/20/23
hydrocortisone 2.5 % topical cream with perineal applicator (Procto-Med HC) 1 applic RI QIDPRN PRN hemorrhoids 05/20/23
polyethylene glycol 3350 17 gram oral powder packet 17 g PO Q72H Constipation 05/20/23
apixaban 5 mg tablet (Eliquis) 5 mg PO BID 30 days #60 tabs 05/26/23
ascorbic acid (vitamin C) 500 mg tablet (Vitamin C) 500 mg PO MOWEFR Supplement 01/13/24
benzocaine 6 mg-menthol 10 mg lozenges 1 mila mucous membrane Q4HPRN PRN sore throat 01/13/24
fluticasone furoate 100 mcg/actuation blister powder for inhalation (Arnuity Ellipta) 1 inh inhalation R DAILY Lung/Breathing Issues 01/13/24
pantoprazole 20 mg tablet,delayed release (Protonix) 20 mg PO DAILY GERD 01/13/24
dapagliflozin propanediol 10 mg tablet 10 mg PO DAILY #30 tabs 01/23/24
diltiazem HCl 180 mg capsule,extended release 24 hr 180 mg PO DAILY #30 caps 01/23/24
hydralazine 25 mg tablet 50 mg (2 x 25 mg) PO TID #180 tabs 01/23/24
metolazone 2.5 mg tablet 2.5 mg PO R Q48H #14 tabs 01/23/24
potassium chloride 20 mEq tablet,extended release(part/cryst) 20 meq PO BID #60 tabs 01/23/24
torsemide 20 mg tablet 40 mg (2 x 20 mg) PO BID@0800,1600 #120 tabs 01/23/24
Home Medication Changes
Dapagliflozin, Metolazone, Torsemide and Potassium are new medications.
Furosemide has been stopped.
Diltiazem dose has been increased.
Hydralazine dose has been increased.
Pending Results: No
Total time spent discharging patient (in min): 37
--- NOTE | 2024-01-23 12:58 | W.HF.CON ---
Heart Failure
- LV Function
Left ventricular function study result: LV Ejection fraction >40% (ECHO 05/21/23)
Ejection Fraction Percentage: 70-75
- ARNI
Patient already on ARNI: No
Heart Failure ARNI Not Indicated: LV Ejection Fraction >/= 40%
- ACEI/ARB
Patient already on ACEI/ARB: Yes
- Beta Misael
Patient already on Evidence Based Beta Misael: No
Heart Failure Evidence Based Beta Misael Not Indicated: LV Ejection Fraction > 40%
- Mineralocorticord Receptor Antagonist
Patient already on MRA: No
Heart Failure MRA Not Indicated: LV Ejection Fraction > 40%
- SGLT-2 Inhibitor
Patient already on SGLT-2 Inhibitor: Yes
- Afib Anticoagulation
Patient already on Anticoagulation for Afib: Yes
- NYHA CHF Classification
NYHA CHF Classification Level: Class III - Symptoms w/ min exertion, interferes w/ nml daily activity (COPD/ILD (chronic))
- ACC/AHA Stage
ACC/AHA Stage: Stage C: Symptomatic Heart Failure
[2024-01-23] MEDS: DEMADEX 40 MG PO (15:11)
--- NOTE | 2024-01-23 16:24 | PTCARENOTE ---
Pateint discharged to [facility]. Meds from home given to .
== END 2024-01-23 16:23 | DRG 291 ==
LOC: IMU 11:37
PROVIDERS: Hospitalist; ADMITTING PHYSICIAN Internal Medicine; ATTENDING PHYSICIAN Hospitalist; CONSULT PHYSICIAN Internal Medicine; CONSULT PHYSICIAN Internal Medicine Critical Care Medicine; EMERGENCY PHYSICIAN Emergency Medicine; FAMILY PHYSICIAN Student in an Organized Health Care Education/Training Program
DX: I11.0 Hypertensive heart disease with heart failure (principal); I50.33 Acute on chronic diastolic (congestive) heart failure; J96.22 Acute and chronic respiratory failure with hypercapnia; J96.21 Acute and chronic respiratory failure with hypoxia; J18.9 Pneumonia, unspecified organism; E66.2 Morbid (severe) obesity with alveolar hypoventilation; I48.21 Permanent atrial fibrillation; Z68.42 Body mass index [BMI] 45.0-49.9, adult; J84.9 Interstitial pulmonary disease, unspecified; E03.9 Hypothyroidism, unspecified; L89.321 Pressure ulcer of left buttock, stage 1; L89.311 Pressure ulcer of right buttock, stage 1; Z87.891 Personal history of nicotine dependence
CPT/HCPCS: 36600; 71045; 80048; 80053; 82805; 83735; 83880; 84145; 84484; 85025; 85027; 87070; 87641; 92526; 92610; 93005; 94640; 94660; 96374; 97163; 99291

== ENCOUNTER → 2024-01-27 10:46 | Outpatient (REF) | payer MEDICARE, SELFPAY ==
[2024-01-27 12:00] LABS: Blood Urea Nitrogen 91 mg/dl (7-17); Calcium 9.4 mg/dl (8.4-10.2); Carbon Dioxide 35 mmol/L (22-30); Chloride 88 mmol/L (98-107); Glucose 127 mg/dl (70-99); Magnesium 2.4 mg/dl (1.6-2.3); Potassium 5.1 mmol/L (3.5-5.1); Sodium 132 mmol/L (135-145); eGFR 17.54
== END ==
LOC: OLABN 10:46
PROVIDERS: ATTENDING PHYSICIAN Student in an Organized Health Care Education/Training Program
DX: E87.6 Hypokalemia (principal)
CPT/HCPCS: 36415; 80048; 83735

== ENCOUNTER → 2024-02-18 10:46 | Outpatient (REF) | payer MEDICARE, SELFPAY ==
[2024-02-18 13:04] LABS: ALT (SGPT) 11 U/L (0-35); AST (SGOT) 19 U/L (14-36); Albumin 3.8 g/dl (3.5-5.0); Alkaline Phosphatase 103 U/L (38-126); Blood Urea Nitrogen 113 mg/dl (7-17); Calcium 9.1 mg/dl (8.4-10.2); Carbon Dioxide 34 mmol/L (22-30); Chloride 93 mmol/L (98-107); Glucose 129 mg/dl (70-99); Potassium 4.1 mmol/L (3.5-5.1); Sodium 141 mmol/L (135-145); Total Bilirubin 0.5 mg/dl (0.2-1.3); Total Protein 6.5 g/dl (6.3-8.2); eGFR 19.31
== END ==
LOC: OLABN 10:46
PROVIDERS: ATTENDING PHYSICIAN Student in an Organized Health Care Education/Training Program
DX: J44.9 Chronic obstructive pulmonary disease, unspecified (principal)
CPT/HCPCS: 36415; 80053